=== PATIENT | male | born 1945 | race Caucasian/White ===

== ENCOUNTER 2016-09-18 03:48 | Inpatient (IN) ==
[2016-09-18] MEDS ORDERED: Ondansetron 4 MG/2 ML VIAL IVP ONE (06:53)
[2016-09-18] MEDS ORDERED: Ondansetron 4 MG/2 ML VIAL IVP PRN (08:57)
[2016-09-18] MEDS ORDERED: Naloxone 0.4 MG/ML INJ IVP PRN (08:57)
[2016-09-18] MEDS: 0.9 % Sodium Chloride 1,000 ML IVC SCH ×3 (09:49→21:35)
[2016-09-18] MEDS: Pantoprazole 40 MG VIAL IVP SCH (09:50)
[2016-09-18 10:27] LABS: Basophils % 0.3 %; Eosinophils % 0.1 %; Hematocrit 43.7 % (37.5-50.1); Hemoglobin 15.1 g/dL (12.9-16.9); Immature Granulocytes % 0.9 % (0-4); Immature Platelets 7.9 % (1.1-6.1); Lymphocytes # 0.9 K/mcL (0.6-4.6); Lymphocytes % 6.3 %; Mean Corpuscular HGB Conc 34.6 g/dL (31.6-35.5); Mean Corpuscular Hemoglobin 30.9 pg (28.0-33.3); Mean Corpuscular Volume 89.5 fL (83.0-100.0); Mean Platelet Volume 11.2 fL (9.4-12.4); Monocytes # 1.1 K/mcL (0.0-1.3); Monocytes % 7.4 %; Neutrophils # 12.3 K/mcL (1.6-8.9); Platelet Count 233 K/mcL (140-400); Red Blood Count 4.88 M/mcL (4.19-5.50); Red Cell Distribution Width 13.2 % (11.5-14.5)
[2016-09-18 10:37] LABS: Potassium 4.6 mEq/L (3.5-4.5)
[2016-09-18] MEDS ORDERED: Chloraseptic Spray 177 ML BOTTLE MM PRN (12:37)
--- NOTE | 2016-09-18 12:37 | General Surgery Consult Note ---
<Janine Sun - Last Filed: 09/18/16 15:21> Date of Encounter: 09/18/16 Time of Encounter: 12:30 Assessment and Plan (1) SBO (small bowel obstruction) Current Visit: No Status: Acute Continue with conservative management: Bowel rest with NG tube to LIWS IV fluids Serial abdominal exams Supportive care and pain control No need for urgent surgical intervention at this time Consider gastrograffin SBFT in the next 24-48 hours Will continue to follow and make recommendations (2) SIENNA (acute kidney injury) Current Visit: No Status: Acute IV fluids Avoid nephrotoxic medications Management per medicine service (3) Hyperglycemia due to type 2 diabetes mellitus Current Visit: No Status: Chronic Management per medicine service Qualifiers: Diabetes mellitus correction insulin use: without correction use Qualified Code(s): E11.65 - Type 2 diabetes mellitus with hyperglycemia (4) DVT prophylaxis Current Visit: No Status: Acute Add heparin 5,000 units SQ twice daily for DVT prophylaxis History of Present Illness Consult date: 09/18/16 Reason for consult: other (SBO) Requesting physician: Benton Moses History of present illness: Mr. Pan is a 71 year old male who is s/p an exploratory laparotomy and appendectomy in April of [address] Mccormick. Patient presented to the ED with abdominal pain with associated nausea/vomiting. He states that he had diarrhea 5 days prior to coming into the hospital. Denies any fevers/chills. He has had a CT scan which shows evidence of dilated stomach and high grade small bowel obstruction. He has been admitted to the hospital for further work-up and we have been asked to see and evaluate the patient for surgical recommendations. Last BM was this morning and was loose, he reports that he is passing flatus. Past Med Surg Social Fam HX - Past Medical History Source: old records reviewed Medical history: arthritis, COPD, coronary artery disease, dementia, diabetes, GERD, hyperlipidemia, hypertension, renal disease, other (Parkinson's disease, BPH) Psychiatric history: anxiety, depression, schizophrenia - Past Surgical History Surgical History: appendectomy, cholecystectomy, other (exploratory laparotomy with appendectomy 04/2016) - Social History Smoking Status: Unknown if ever smoked Smokeless Tobacco Status: No Alcohol use: none Drug use: none Medications and Allergies Allopurinol [Zyloprim] 200 mg PO QAM 04/19/16 [History] Clopidogrel [Plavix] 75 mg PO QAM 04/19/16 [History] Docusate [Colace] 100 mg PO BID 04/19/16 [History] Ergocalciferol (VITAMIN D2) [Vitamin D2 (50,000 UNIT)] 50,000 unit PO SA [History] Fluticasone Propionate Nasal [Flonase] 100 mcg NS DAILY 04/19/16 [History] Hydrocodone/Acetaminophen [[place] 5-325 Tablet] 1 tab PO BID 04/19/16 [History] Iron Polysaccharide Complex [Ferrex 150] 150 mg PO BID 04/19/16 [History] Lactulose 10 gm PO BID 04/19/16 [History] Levothyroxine [Synthroid] 25 mcg PO QAM 04/19/16 [History] Liraglutide [Victoza 2-Antoine] 1.8 mg SQ QAM 04/19/16 [History] Lisinopril [Zestril] 10 mg PO DAILY 04/19/16 [History] Metoprolol [Lopressor] 25 mg PO BID 04/19/16 [History] [place]-3/Dha/Epa/Fish Oil [Fish Oil 1,000 mg Softgel] 1 cap PO BID 04/19/16 [ History] Tamsulosin [Flomax] 0.4 mg PO HS 04/19/16 [History] Atorvastatin [Lipitor] 40 mg PO HS 04/20/16 [History] ClonazePAM [Klonopin] 0.5 mg PO QAM 04/20/16 [History] Finasteride [Proscar] 5 mg PO QAM 04/20/16 [History] Insulin ASPART [Novolog Flexpen] 3 - 12 unit SQ QID PRN 04/20/16 [History] Venlafaxine XR (24 HR) [Effexor XR] 225 mg PO QAM 04/20/16 [History] Insulin Glargine,Hum.rec.anlog [Lantus Solostar] 50 unit SQ HS 07/17/16 [History ] Insulin Glargine,Hum.rec.anlog [Lantus Solostar] 50 unit SQ QAM 07/17/16 [ History] Acetaminophen [Tylenol] 500 mg PO BID 09/18/16 [History] Amantadine [Symmetrel] 100 mg PO BID 09/18/16 [History] Benztropine [Cogentin] 1 mg PO QAM 09/18/16 [History] Carbidopa/Levodopa [Carbidopa-Levodopa 25-250 Tab] 1 tab PO TID 09/18/16 [ History] Cetirizine HCl [All Day Allergy] 10 mg PO DAILY 09/18/16 [History] Furosemide [Lasix] 40 mg PO DAILY 09/18/16 [History] Mirtazapine 7.5 mg PO HS 09/18/16 [History] Potassium Chloride [Klor-Con Sprinkle] 10 meq PO DAILY 09/18/16 [History] Temazepam [Restoril] 15 mg PO HS 09/18/16 [History] Ziprasidone HCl [Geodon] 20 mg PO Q4H PRN 09/18/16 [History] Ziprasidone HCl [Geodon] 60 mg PO BID 09/18/16 [History] Allergies Sulfa (Sulfonamide Antibiotics) Allergy (Unknown, Verified 09/18/16 11:28) See Comments UNKNOWN REACTION- LISTED ON PATIENT'S MAR FROM [facility] Review of Systems All systems PM: reviewed and no additional remarkable complaints except as stated (in the HPI- patient is a poor historian) All systems PM: A 10-system review of systems was performed and is negative for pertinent findings except as documented above in the HPI. General Surgery Exam Initial Vital Signs Temp Pulse Resp BP Pulse Ox 97.5 F L 94 16 159/99 97 09/18/16 06:44 09/18/16 06:44 09/18/16 06:44 09/18/16 06:44 09/18/16 06:44 - General physical appearance well developed, well nourished, no distress, moderate pain, other (out of bed to chair) - Eyes normal ocular movement - ENT normal mucosa, atraumatic, normocephalic - Neck trachea midline - Respiratory normal respiratory effort, clear to auscultation - Cardiovascular Cardiovascular exam: Present: RRR - Abdomen Abdomen general surgery: Present: bowel sounds present (hypoactive), soft, distended, tender (moderately), wound (NG tube to LIWS with bilious drainage noted) Abdominal Tenderness: Present: diffusely - Incision Incision: Present: clean and dry, intact - Integumentary Integumentary general surgery: Present: warm and dry - Neurologic Present: CN 2-12 grossly intact - Musculoskeletal Present: normal gait, normal posture - Psychiatric Psychiatric general surgery: Present: appropriate, oriented to person, oriented to place, oriented to time, speech is normal, memory intact Exam Initial Vital Signs Temp Pulse Resp BP Pulse Ox 97.5 F L 94 16 159/99 97 09/18/16 06:44 09/18/16 06:44 09/18/16 06:44 09/18/16 06:44 09/18/16 06:44 Results - Labs 09/18/16 10:20 09/18/16 10:20 Abnormal lab results WBC 14.5 K/mcL (4.3-11.1) H 09/18/16 10:20 Neutrophils # 12.3 K/mcL (1.6-8.9) H 09/18/16 10:20 Immature Plt Fraction 7.9 % (1.1-6.1) H 09/18/16 10:20 Sodium 135 mEq/L (136-145) L 09/18/16 10:20 Potassium 4.6 mEq/L (3.5-4.5) H 09/18/16 10:20 BUN 37 mg/dL (8-26) H 09/18/16 10:20 Creatinine 2.24 mg/dL (0.72-1.25) H 09/18/16 10:20 Est GFR ( Amer) 35 (> 60) L 09/18/16 10:20 Est GFR (Non-Af Amer) 29 (> 60) L 09/18/16 10:20 Glucose 255 mg/dL (70-99) H 09/18/16 10:20 POC Glucose 277 (58-89) H 09/18/16 10:45 Diabetes panel 09/18/16 Range/Units 10:20 Sodium 135 L (136-145) mEq/L Potassium 4.6 H (3.5-4.5) mEq/L Chloride 99 (98-109) mEq/L Carbon Dioxide 23 (19-29) mEq/L BUN 37 H (8-26) mg/dL Creatinine 2.24 H (0.72-1.25) mg/dL Glucose 255 H (70-99) mg/dL Calcium 10.0 (8.6-10.8) mg/dL Calcium panel 09/18/16 Range/Units 10:20 Calcium 10.0 (8.6-10.8) mg/dL Pituitary panel 09/18/16 Range/Units 10:20 Sodium 135 L (136-145) mEq/L Potassium 4.6 H (3.5-4.5) mEq/L Chloride 99 (98-109) mEq/L Carbon Dioxide 23 (19-29) mEq/L BUN 37 H (8-26) mg/dL Creatinine 2.24 H (0.72-1.25) mg/dL Glucose 255 H (70-99) mg/dL Calcium 10.0 (8.6-10.8) mg/dL Adrenal panel 09/18/16 Range/Units 10:20 Sodium 135 L (136-145) mEq/L Potassium 4.6 H (3.5-4.5) mEq/L Chloride 99 (98-109) mEq/L Carbon Dioxide 23 (19-29) mEq/L BUN 37 H (8-26) mg/dL Creatinine 2.24 H (0.72-1.25) mg/dL Glucose 255 H (70-99) mg/dL Calcium 10.0 (8.6-10.8) mg/dL All other labs normal. - Imaging CT scan - abdomen: report reviewed CT scan - pelvis: report reviewed Additional studies: KUB X-Ray 09/18/16 10:08 IMPRESSION: Nasogastric tube side port projects over the distal esophagus. Recommend advancing approximately 8 cm. The findings were sent to the Radiology Results Communication Center at on 09/18/2016to be communicated to a licensed caregiver. D/ / 09/18/2016 10:35:11 Ra Greenberg MD / Meron Navarrete Interpreting Provider: Ra Greenberg MD Consult Discharge Plan - Plan Referrals: NO,PCP [Primary Care Provider] - - Attending Attestation I examined this patient and my medical decision-making was reviewed with the [facility]/PA/Advanced Practice Nurse/Resident Physician. I agree with the documented findings, disposition and treatment plan as described except to the extent set forth below. <Osito Mccormick - Last Filed: 09/18/16 16:17> Date of Encounter: 09/18/16 Review of Systems All systems PM: A 10-system review of systems was performed and is negative for pertinent findings except as documented above in the HPI. General Surgery Exam Initial Vital Signs Temp Pulse Resp BP Pulse Ox 97.5 F L 94 16 159/99 97 09/18/16 06:44 09/18/16 06:44 09/18/16 06:44 09/18/16 06:44 09/18/16 06:44 Exam Initial Vital Signs Temp Pulse Resp BP Pulse Ox 97.5 F L 94 16 159/99 97 09/18/16 06:44 09/18/16 06:44 09/18/16 06:44 09/18/16 06:44 09/18/16 06:44 Results - Labs 09/18/16 10:20 09/18/16 10:20 Abnormal lab results WBC 14.5 K/mcL (4.3-11.1) H 09/18/16 10:20 Neutrophils # 12.3 K/mcL (1.6-8.9) H 09/18/16 10:20 Immature Plt Fraction 7.9 % (1.1-6.1) H 09/18/16 10:20 Sodium 135 mEq/L (136-145) L 09/18/16 10:20 Potassium 4.6 mEq/L (3.5-4.5) H 09/18/16 10:20 BUN 37 mg/dL (8-26) H 09/18/16 10:20 Creatinine 2.24 mg/dL (0.72-1.25) H 09/18/16 10:20 Est GFR ( Amer) 35 (> 60) L 09/18/16 10:20 Est GFR (Non-Af Amer) 29 (> 60) L 09/18/16 10:20 Glucose 255 mg/dL (70-99) H 09/18/16 10:20 POC Glucose 277 (58-89) H 09/18/16 10:45 Diabetes panel 09/18/16 Range/Units 10:20 Sodium 135 L (136-145) mEq/L Potassium 4.6 H (3.5-4.5) mEq/L Chloride 99 (98-109) mEq/L Carbon Dioxide 23 (19-29) mEq/L BUN 37 H (8-26) mg/dL Creatinine 2.24 H (0.72-1.25) mg/dL Glucose 255 H (70-99) mg/dL Calcium 10.0 (8.6-10.8) mg/dL Calcium panel 09/18/16 Range/Units 10:20 Calcium 10.0 (8.6-10.8) mg/dL Pituitary panel 09/18/16 Range/Units 10:20 Sodium 135 L (136-145) mEq/L Potassium 4.6 H (3.5-4.5) mEq/L Chloride 99 (98-109) mEq/L Carbon Dioxide 23 (19-29) mEq/L BUN 37 H (8-26) mg/dL Creatinine 2.24 H (0.72-1.25) mg/dL Glucose 255 H (70-99) mg/dL Calcium 10.0 (8.6-10.8) mg/dL Adrenal panel 09/18/16 Range/Units 10:20 Sodium 135 L (136-145) mEq/L Potassium 4.6 H (3.5-4.5) mEq/L Chloride 99 (98-109) mEq/L Carbon Dioxide 23 (19-29) mEq/L BUN 37 H (8-26) mg/dL Creatinine 2.24 H (0.72-1.25) mg/dL Glucose 255 H (70-99) mg/dL Calcium 10.0 (8.6-10.8) mg/dL All other labs normal. - Attending Attestation I reviewed the history of physical examination was present for the exam. I agree with the above-mentioned plan.
[2016-09-18] MEDS ORDERED: *HR* Dextrose 50 % in Water (Syg) 50 ML SYRINGE IVP PRN (12:43)
[2016-09-18] MEDS ORDERED: Dextrose Gel 15 GM PO PRN ×2 (12:43)
[2016-09-18] MEDS ORDERED: D5% in Water 1,000 ML IV PRN (12:43)
[2016-09-18] MEDS: Insulin LISPRO 300 UNITS/3 ML VIAL SQ SCH ×2 (17:50→23:46)
[2016-09-18] MEDS: *HR* Heparin 5,000 UNIT/ML VIAL SQ SCH (19:05)
[2016-09-18] MEDS: *HR* Morphine 2 MG/ML SYRINGE IVP PRN (20:17)
--- NOTE | 2016-09-18 23:16 | Internal Med History&Physical ---
Date of Encounter: 09/18/16 Time of Encounter: 07:45 Internal Medicine - H&P: HPI Chief complaint: Abdominal pain, distension x couple of days Admitted From: Intrahospital Transfer Plans for Post Hospital Care: Transfer [facility] Facility History of present illness: Mr. Pna is a 71 year old male resident of [place] (with dementia, schizophrenia), with multiple somatic and psychomorbidities, he is a very poor historian, he was transferred from [facility] where he was evaluated initialled for abdominal pain and distension with CT evidence of SBO bowel obstruction with transition point in the RLQ with suspicion for adhesions. He is s/p exploratory laparotomy and appendectomy in April of [address] Mccormick. As he is a poor historian, much of the history was obtained from sign out recived by accepting RN. He had reported abdominal pain, nausea and vomiting. for a couple of days. The [place] personnel thought it wa due to constipation, trying laxatives without success. There is also a report that he may have had intermittent diarrhea, the last of which was this morning. He is unable to answer (comprehend) the question (are you passing flatus?). ROS is limited by the presence of NG tube and patient cognitive status. I understand 1.4L OF billious drainage was obtained at [facility], another 700 mls in [facility], the [facility] currently hold 800 mls of billious drainage. I am unable to obatin a code status. His is listed as his NOK/POA. I was unable to constact her by phone this morning. ROS: Limited by presence of N-G and patient cognitive status FHx: Patient is able to tell me he has a family history of cancer, he mentions breast cancer as one of these.. Vital Signs Temperature 99.3 F 09/18/16 01:47 Pulse Rate 102 09/18/16 01:47 Respiratory Rate 16 09/18/16 01:47 Blood Pressure 147/81 09/18/16 01:47 O2 Sat by Pulse Oximetry 100 09/18/16 01:47 Temperature 98.2 F 09/18/16 04:44 Pulse Rate 102 09/18/16 01:47 Respiratory Rate 16 09/18/16 04:44 Blood Pressure 146/81 09/18/16 04:44 O2 Sat by Pulse Oximetry 100 09/18/16 01:47 Not in distress, not ill, non-toxic looking, Not pale, anicteric, afebrile, acyanotic. Moist mucosa. HEENT: No JVD, no cervical lymphadenopathy, NG tube in left nostril draining large amounts of thin billious fluid, attached to low intermittent suction Chest : CTAB, relative reduction in the bases. Heart: RRR, HS1/2, no m/r/g. Abdomen: distended, scar fron prior laparatomy, soft, tender in the mid abdomen and RLQ, bowel sounds is hypoactive, no masses, [employer]RO[employer]OR: AAO X 3, no gross focal neurological signs. Skin: No active skin lesion Extremities: No pedal edema, normal pedal pulses, no calf tenderness Lab Results 09/18/16 09/18/16 09/18/16 Range/Units 02:05 02:05 02:20 WBC 15.2 H (4.3-11.1) K/mcL RBC 5.05 (4.19-5.50) M/mcL Hgb 15.6 (12.9-16.9) g/dL Hct 45.4 (37.5-50.1) % MCV 89.9 (83.0-100.0) fL MCH 30.9 (28.0-33.3) pg MCHC 34.4 (31.6-35.5) g/dL RDW 13.2 (11.5-14.5) % Plt Count 233 (140-400) K/mcL MPV 11.7 (9.4-12.4) fL Immature Gran % 0.8 (0-4) % Seg Neutrophils % 87.1 % Lymphocytes % 5.4 % Monocytes % 6.0 % Eosinophils % 0.3 % Basophils % 0.4 % Neutrophils # 13.2 H (1.6-8.9) K/mcL Lymphocytes # 0.8 (0.6-4.6) K/mcL Monocytes # 0.9 (0.0-1.3) K/mcL Eosinophils # 0.1 (0.0-0.6) K/mcL Basophils # 0.1 (0.0-0.2) K/mcL PT 12.2 H (9.4-12.1) Seconds INR 1.1 APTT 33.4 (26.0-36.0) Seconds Sodium 132 L (136-145) mEq/L Potassium 5.4 H (3.5-4.5) mEq/L Chloride 95 L (98-109) mEq/L Carbon Dioxide 22 (19-29) mEq/L BUN 36 H (8-26) mg/dL Creatinine 2.56 H (0.72-1.25) mg/dL Est GFR ( Amer) 30 L (> 60) Est GFR (Non-Af Amer) 25 L (> 60) BUN/Creatinine Ratio 14 (6-26) Glucose 345 H (70-99) mg/dL Calculated Osmolality 296 (280-300) Calcium 9.8 (8.6-10.8) mg/dL Total Bilirubin 0.7 (0.2-1.2) mg/dL AST 10 (5-34) Units/L ALT 19 (0-55) Units/L Alkaline Phosphatase 137 H (38-126) Units/L Serum Total Protein 7.5 (6.0-8.3) g/dL Albumin 3.8 (3.5-5.0) g/dL Globulin 3.7 H (2.4-3.5) g/dL Albumin/Globulin Ratio 1.0 L (1.1-2.2) Amylase 27 (25-125) Units/L Lipase 44 (8-78) Units/L CT abdomen: High grade small bowel obstruction with transition point in the RLQ. KUB X-Ray 09/18/16 10:08 Nasogastric tube side port projects over the distal esophagus. EKG: NSR, RBBB. imp SBO, related to adhesions. ARF on CKD Hyperkalemia due to ARF Leucocytosis, reactive, likely related to vomiting Chronic morbidities COPD CAD Dementia DM2 GERD HLD CKDIII Arthritis Anxiety Depression Schizophrenia. PLAN Admit Conservative care IVF NS @ 175, decrease rate after 24 hours and correction of fluid deficits. Optimal pain control, antiemetic NG to low-intermittent suction Consult general surgery for comanagement. Trend WBC, and renal function Add potassium to fluids once potassium normalizes Hold po medication, given by parenteral edward when available and indicated. DVT prophylaxis with heparin SC. IV Protonix 40mg QD. I reassured the patient as he was anxious he was going to need surgery, he appears to comprehend at least in part my assessment. He is high risk due to high grade SBO, there remains risk of perforation, sepsis, gangrene and hemodynamic collapse Psychiatric history: Reports: anxiety, depression, schizophrenia Past Med Surg Social Fam HX - Past Medical History Medical history: arthritis, COPD, coronary artery disease, dementia, diabetes, GERD, hyperlipidemia, hypertension, renal disease, other (Parkinson's disease, BPH) Psychiatric history: anxiety, depression, schizophrenia - Past Surgical History Surgical History: appendectomy, cholecystectomy, other (exploratory laparotomy with appendectomy 04/2016) - Social History Smoking Status: Unknown if ever smoked Smokeless Tobacco Status: No Alcohol use: none Drug use: none Internal Medicine - H&P: Meds Allopurinol [Zyloprim] 200 mg PO QAM 04/19/16 [History] Clopidogrel [Plavix] 75 mg PO QAM 04/19/16 [History] Docusate [Colace] 100 mg PO BID 04/19/16 [History] Ergocalciferol (VITAMIN D2) [Vitamin D2 (50,000 UNIT)] 50,000 unit PO SA [History] Fluticasone Propionate Nasal [Flonase] 100 mcg NS DAILY 04/19/16 [History] Hydrocodone/Acetaminophen [[place] 5-325 Tablet] 1 tab PO BID 04/19/16 [History] Iron Polysaccharide Complex [Ferrex 150] 150 mg PO BID 04/19/16 [History] Lactulose 10 gm PO BID 04/19/16 [History] Levothyroxine [Synthroid] 25 mcg PO QAM 04/19/16 [History] Liraglutide [Victoza 2-Antoine] 1.8 mg SQ QAM 04/19/16 [History] Lisinopril [Zestril] 10 mg PO DAILY 04/19/16 [History] Metoprolol [Lopressor] 25 mg PO BID 04/19/16 [History] [place]-3/Dha/Epa/Fish Oil [Fish Oil 1,000 mg Softgel] 1 cap PO BID 04/19/16 [ History] Tamsulosin [Flomax] 0.4 mg PO HS 04/19/16 [History] Atorvastatin [Lipitor] 40 mg PO HS 04/20/16 [History] ClonazePAM [Klonopin] 0.5 mg PO QAM 04/20/16 [History] Finasteride [Proscar] 5 mg PO QAM 04/20/16 [History] Insulin ASPART [Novolog Flexpen] 3 - 12 unit SQ QID PRN 04/20/16 [History] Venlafaxine XR (24 HR) [Effexor XR] 225 mg PO QAM 04/20/16 [History] Insulin Glargine,Hum.rec.anlog [Lantus Solostar] 50 unit SQ HS 07/17/16 [History ] Insulin Glargine,Hum.rec.anlog [Lantus Solostar] 50 unit SQ QAM 07/17/16 [ History] Acetaminophen [Tylenol] 500 mg PO BID 09/18/16 [History] Amantadine [Symmetrel] 100 mg PO BID 09/18/16 [History] Benztropine [Cogentin] 1 mg PO QAM 09/18/16 [History] Carbidopa/Levodopa [Carbidopa-Levodopa 25-250 Tab] 1 tab PO TID 09/18/16 [ History] Cetirizine HCl [All Day Allergy] 10 mg PO DAILY 09/18/16 [History] Furosemide [Lasix] 40 mg PO DAILY 09/18/16 [History] Mirtazapine 7.5 mg PO HS 09/18/16 [History] Potassium Chloride [Klor-Con Sprinkle] 10 meq PO DAILY 09/18/16 [History] Temazepam [Restoril] 15 mg PO HS 09/18/16 [History] Ziprasidone HCl [Geodon] 20 mg PO Q4H PRN 09/18/16 [History] Ziprasidone HCl [Geodon] 60 mg PO BID 09/18/16 [History] Allergies Sulfa (Sulfonamide Antibiotics) Allergy (Unknown, Verified 09/18/16 11:28) See Comments UNKNOWN REACTION- LISTED ON PATIENT'S MAR FROM [facility] All Systems PM: A 10-system review of systems was performed and is negative for pertinent findings except as documented above in the HPI. - Constitutional Vitals: Temp Pulse Resp BP Pulse Ox 98.1 F 92 18 162/81 98 09/18/16 19:31 09/18/16 19:31 09/18/16 19:31 09/18/16 19:31 09/18/16 19:31 Internal Med - H&P Results - Labs CBC & Chem 7: 09/18/16 10:20 09/18/16 10:20 Labs: Short CBC 09/18/16 Range/Units 10:20 WBC 14.5 H (4.3-11.1) K/mcL Hgb 15.1 (12.9-16.9) g/dL Hct 43.7 (37.5-50.1) % Plt Count 233 (140-400) K/mcL Neutrophils # 12.3 H (1.6-8.9) K/mcL BMP 09/18/16 10:20 Sodium 135 L Potassium 4.6 H Chloride 99 Carbon Dioxide 23 BUN 37 H Creatinine 2.24 H Glucose 255 H Calcium 10.0 - Impressions ITS Impressions KUB X-Ray 09/18/16 10:08 IMPRESSION: Nasogastric tube side port projects over the distal esophagus. Recommend advancing approximately 8 cm. The findings were sent to the Radiology Results Communication Center at 10:28 a.m. on 09/18/2016to be communicated to a licensed caregiver. D/ / 09/18/2016 10:35:11 Ra Greenberg MD / Meron Navarrete Interpreting Provider: Ra Greenberg MD
[2016-09-18] MEDS: Insulin DETEMIR 100 UNIT/ML X5UNITS SQ SCH (23:45)
[2016-09-19] MEDS: 0.9 % Sodium Chloride 1,000 ML IVC SCH ×4 (03:14→22:00)
[2016-09-19] MEDS: Insulin LISPRO 300 UNITS/3 ML VIAL SQ SCH ×4 (05:11→23:27)
[2016-09-19 05:45] LABS: Basophils # 0.1 K/mcL (0.0-0.2); Basophils % 0.6 %; Eosinophils # 0.3 K/mcL (0.0-0.6); Eosinophils % 3.1 %; Hematocrit 40.7 % (37.5-50.1); Immature Granulocytes % 0.9 % (0-4); Lymphocytes # 1.6 K/mcL (0.6-4.6); Lymphocytes % 15.2 %; Mean Corpuscular HGB Conc 33.2 g/dL (31.6-35.5); Mean Corpuscular Hemoglobin 30.7 pg (28.0-33.3); Mean Corpuscular Volume 92.5 fL (83.0-100.0); Mean Platelet Volume 11.6 fL (9.4-12.4); Monocytes % 9.7 %; Neutrophils # 7.4 K/mcL (1.6-8.9); Platelet Count 175 K/mcL (140-400); Red Cell Distribution Width 13.2 % (11.5-14.5); Segmented Neutrophils % 70.5 %
[2016-09-19 05:54] LABS: Hemoglobin 13.5 g/dL (12.9-16.9)
[2016-09-19 06:04] LABS: Calcium 8.4 mg/dL (8.6-10.8); Potassium 3.8 mEq/L (3.5-4.5)
[2016-09-19] MEDS: *HR* Heparin 5,000 UNIT/ML VIAL SQ SCH ×2 (06:24→18:25)
[2016-09-19] MEDS ORDERED: *HR* LORazepam 2 MG/ML VIAL IVP ONE (09:09)
[2016-09-19] MEDS ORDERED: *HR* LORazepam 0.5 MG TABLET PO PRN (09:09)
[2016-09-19] MEDS: Pantoprazole 40 MG VIAL IVP SCH (09:52)
[2016-09-19] MEDS: Ziprasidone injection 20 MG/ML VIAL IM SCH (12:35)
--- NOTE | 2016-09-19 12:56 | General Surgery Progress Note ---
Date of Encounter: 09/19/16 Time of Encounter: 09:15 - Assessment and Plan (1) SBO (small bowel obstruction) Current Visit: No Status: Acute Continue with conservative management: NG tube to LIWS, with 200ml clears liquids per shift. IV fluids Serial abdominal exams Supportive care and pain control No need for urgent surgical intervention at this time Consider gastrograffin SBFT in the next 24-48 hours Will continue to follow and make recommendations (2) SIENNA (acute kidney injury) Current Visit: No Status: Acute Improved, Cr 2.24>1.53 IV fluids Avoid nephrotoxic medications Management per medicine service (3) Hypertension associated with diabetes Current Visit: No Status: Acute Management per medicine service. (4) DVT prophylaxis Current Visit: No Status: Acute Heparin 5,000 units SQ Q12H for DVT prophylaxis. Subjective Patient reports: no new complaints, feels better, pain is less, no flatus, no bowel movement, afebrile Narrative: He denies any flatus or BM. Denies abdominal pain. Only states his eyes burn and he is thirsty (will start limited clears). Objective Vital Signs - Last 8 Hours Temp Pulse Resp BP Pulse Ox 09/19/16 11:40 97.3 F L 89 16 123/73 95 09/19/16 09:04 97.6 F 89 16 123/77 94 L Intake and Output 09/18/16 09/19/16 09/19/16 23:59 07:59 15:59 Intake Total 1000 / 1000 1000 / 1000 1675 / 1675 Output Total 600 / 600 450 / 450 475 / 475 Balance 400 / 400 550 / 550 1200 / 1200 Intake: IV Fluids 1000 / 1000 1000 / 1000 1675 / 1675 0.9 % Sodium Chloride 1, 1000 / 1000 1000 / 1000 1675 / 1675 000 ML @ 175 mls/hr IVC . [id number] [facility] Rx#:[id number] Oral 0 / 0 0 / 0 Output: Urine 0 / 0 0 / 0 Stool 500 / 500 Urine/Stool Mix 475 / 475 Gastric Drainage 100 / 100 450 / 450 Other: Meal NPO Stool Color Green Weight 86.68 kg Blood Glucose* 131 138 154 Patient Weight 09/19/16 23:59 Weight 86.68 kg - General physical appearance well developed, well nourished, no distress, chronically ill - Eyes other (will follow with eyes when talking to examiner, eyes not fully open.) - ENT normal mucosa, atraumatic, normocephalic - Neck Neck exam: trachea midline - Respiratory normal respiratory effort, clear to auscultation - Cardiovascular Cardiovascular exam: Present: tachycardia - Abdomen Abdomen: Present: bowel sounds present, soft, non tender - Neurologic disoriented (once stated he was tender around his "nose" when referring to abdomen.) - Psychiatric oriented to person - Labs 09/19/16 05:22 09/19/16 05:22 Diabetes panel 09/19/16 Range/Units 05:22 Sodium 138 (136-145) mEq/L Potassium 3.8 (3.5-4.5) mEq/L Chloride 106 (98-109) mEq/L Carbon Dioxide 23 (19-29) mEq/L BUN 29 H (8-26) mg/dL Creatinine 1.53 H (0.72-1.25) mg/dL Glucose 152 H (70-99) mg/dL Calcium 8.4 L D (8.6-10.8) mg/dL Calcium panel 09/19/16 Range/Units 05:22 Calcium 8.4 L D (8.6-10.8) mg/dL Pituitary panel 09/19/16 Range/Units 05:22 Sodium 138 (136-145) mEq/L Potassium 3.8 (3.5-4.5) mEq/L Chloride 106 (98-109) mEq/L Carbon Dioxide 23 (19-29) mEq/L BUN 29 H (8-26) mg/dL Creatinine 1.53 H (0.72-1.25) mg/dL Glucose 152 H (70-99) mg/dL Calcium 8.4 L D (8.6-10.8) mg/dL Adrenal panel 09/19/16 Range/Units 05:22 Sodium 138 (136-145) mEq/L Potassium 3.8 (3.5-4.5) mEq/L Chloride 106 (98-109) mEq/L Carbon Dioxide 23 (19-29) mEq/L BUN 29 H (8-26) mg/dL Creatinine 1.53 H (0.72-1.25) mg/dL Glucose 152 H (70-99) mg/dL Calcium 8.4 L D (8.6-10.8) mg/dL Consult Discharge Plan - Plan Referrals: NO,PCP [Primary Care Provider] -
[2016-09-19] MEDS: *HR* HYDROmorphone (PF) 1 MG/ML SYRINGE IVP PRN (16:15)
--- NOTE | 2016-09-19 16:43 | Internal Med Progress Note ---
Date of Encounter: 09/19/16 Time of Encounter: 09:50 - Assessment and plan (1) Small bowel obstruction due to adhesions Current Visit: Yes Status: Acute Assessment and plan: Surgery following CT abdomen: High grade small bowel obstruction with transition point in the RLQ. No intervention for now Continue Conservative care NPO IVF NS @ 175, decrease rate after 24 hours and correction of fluid deficits. Optimal pain control, antiemetic NG to low-intermittent suction Monitor clinical signs, patient remains hemodyamically stable However, He is high risk due to high grade SBO, there remains risk of perforation, sepsis, gangrene and hemodynamic collapse Trend WBC, and renal function (2) Leukocytosis Current Visit: Yes Status: Resolved Assessment and plan: Possibly reactive from nausea and vomiting Qualifiers: Leukocytosis type: unspecified Qualified Code(s): D72.829 - Elevated white blood cell count, unspecified (3) Schizophrenia Current Visit: Yes Status: Chronic Assessment and plan: Resume IM form of home meds Monitor closely Qualifiers: Schizophrenia type: unspecified Qualified Code(s): F20.9 - Schizophrenia, unspecified (4) Diabetes mellitus Current Visit: Yes Status: Chronic Assessment and plan: Patient is NPO for now FS q6H for now, continue same Sliding scale insulin for now Qualifiers: Diabetes mellitus type: type 2 Diabetes mellitus complication status: with hyperglycemia Diabetes mellitus fpc insulin use: unspecified fpc insulin use status Qualified Code(s): E11.65 - Type 2 diabetes mellitus with hyperglycemia (5) COPD (chronic obstructive pulmonary disease) Current Visit: Yes Status: Chronic Assessment and plan: Not in exacerbation Qualifiers: COPD type: unspecified COPD Qualified Code(s): J44.9 - Chronic obstructive pulmonary disease, unspecified (6) HLD (hyperlipidemia) Current Visit: Yes Status: Chronic Assessment and plan: Resume home meds when taking po Qualifiers: Hyperlipidemia type: unspecified Qualified Code(s): E78.5 - Hyperlipidemia , unspecified (7) Dementia Current Visit: Yes Status: Chronic Assessment and plan: Resume ativan IV for now Monitor closely Qualifiers: Dementia type: unspecified type Dementia behavioral disturbance: with behavioral disturbance Qualified Code(s): F03.91 - Unspecified dementia with behavioral disturbance (8) SIENNA (acute kidney injury) Current Visit: Yes Status: Resolved Assessment and plan: Renal function improved Continue IVF hydration (9) Hyperkalemia Current Visit: Yes Status: Resolved Assessment and plan: Resolved K WNL - Subjective Interval history: Mr. Pan is a 71 year old male resident of [place] (with dementia, schizophrenia) He is admitted for management of SBO, SIENNA on CKD He was agitated just prior to review this a.m Chart review reveals patient is on benzodiazepines and multiple antipsychotics, parenteral forms of theses have been restarted At time of review, he is very drowsy (s/p medication) He is able to pen his eyes to name call Other PMH is significant for COPD, CAD, DM, GERD HLD - Constitutional Vitals: Temp Pulse Resp BP Pulse Ox 97.6 F 82 16 152/87 98 09/19/16 16:23 09/19/16 16:23 09/19/16 16:23 09/19/16 16:23 09/19/16 16:23 General appearance: Present: A&O X 1 - Head Head exam: Present: atraumatic, normocephalic - Eye Eye exam: Present: PERRL, conjuntiva pink, sclera anicteric Pupils: Present: PERRL - ENT Additional comments: NG tube draining brownish material - Neck Neck exam general surgery: Present: supple, trachea midline. Absent: lymphadenopathy - Respiratory Respiratory exam: Present: CTAB. Absent: accessory muscle use, rales, rhonchi, wheezes - Cardiovascular Cardiovascular exam: Present: RRR, +S1, +S2. Absent: diastolic murmur, gallop, rubs, systolic murmur - GI/Abdominal GI/Abdominal exam: Present: distended, hypoactive bowel sounds, soft, no peritoneal signs. Absent: guarding, tenderness - Extremities Exam Extremities exam: Present: warm, radial pulses palpable and symetrical. Absent : calf tenderness, cyanotic, pedal edema - Neurological Exam Neurological exam: Present: CN II-XII intact, no focal deficits. Absent: pronater drift, facial droop, speech deficit - Skin Skin exam: Present: dry Internal Medicine: Result - Labs CBC & Chem 7: 09/19/16 05:22 09/19/16 05:22 Labs: Short CBC 09/19/16 Range/Units 05:22 WBC 10.4 (4.3-11.1) K/mcL Hgb 13.5 D (12.9-16.9) g/dL Hct 40.7 (37.5-50.1) % Plt Count 175 (140-400) K/mcL Neutrophils # 7.4 (1.6-8.9) K/mcL BMP 09/19/16 05:22 Sodium 138 Potassium 3.8 Chloride 106 Carbon Dioxide 23 BUN 29 H Creatinine 1.53 H Glucose 152 H Calcium 8.4 L D - Impressions Impressions KUB X-Ray 09/18/16 10:08 IMPRESSION: Nasogastric tube side port projects over the distal esophagus. Recommend advancing approximately 8 cm. The findings were sent to the [facility] at 10:28 a.m. on 09/18/2016to be communicated to a licensed caregiver. D/ / 09/18/2016 10:35:11 Ra Greenberg MD / Meron Navarrete Interpreting Provider: Ra Greenberg MD Consult Discharge Plan - Plan Referrals: NO,PCP [Primary Care Provider] -
[2016-09-19] MEDS ORDERED: Furosemide 20 MG/2 ML VIAL IVP ONE (20:06)
[2016-09-19] MEDS: Insulin DETEMIR 100 UNIT/ML X5UNITS SQ SCH (23:26)
[2016-09-20] MEDS: 0.9 % Sodium Chloride 1,000 ML IVC SCH ×2 (03:49→09:15)
[2016-09-20] MEDS: Insulin LISPRO 300 UNITS/3 ML VIAL SQ SCH ×3 (06:16→18:21)
[2016-09-20] MEDS: *HR* Heparin 5,000 UNIT/ML VIAL SQ SCH ×2 (06:19→18:21)
[2016-09-20 07:16] LABS: BUN/Creatinine Ratio 17 (6-26); Calcium 8.5 mg/dL (8.6-10.8); Carbon Dioxide 23 mEq/L (19-29); Chloride 111 mEq/L (98-109); Glucose 100 mg/dL (70-99); Osmolality,Calculated 300 (280-300); Potassium 3.7 mEq/L (3.5-4.5); Sodium 144 mEq/L (136-145); eGFR For African Americans > 60 (> 60); eGFR For Non-African Americans > 60 (> 60)
[2016-09-20 07:19] LABS: Blood Urea Nitrogen 17 mg/dL (8-26)
[2016-09-20 07:32] LABS: Basophils % 0.5 %; Eosinophils # 0.3 K/mcL (0.0-0.6); Eosinophils % 3.4 %; Hematocrit 36.4 % (37.5-50.1); Hemoglobin 12.3 g/dL (12.9-16.9); Immature Granulocytes % 1.3 % (0-4); Lymphocytes # 1.1 K/mcL (0.6-4.6); Lymphocytes % 14.7 %; Mean Corpuscular HGB Conc 33.8 g/dL (31.6-35.5); Mean Corpuscular Hemoglobin 31.7 pg (28.0-33.3); Mean Corpuscular Volume 93.8 fL (83.0-100.0); Mean Platelet Volume 11.4 fL (9.4-12.4); Monocytes # 0.5 K/mcL (0.0-1.3); Monocytes % 7.1 %; Neutrophils # 5.5 K/mcL (1.6-8.9); Platelet Count 149 K/mcL (140-400); Red Blood Count 3.88 M/mcL (4.19-5.50); Red Cell Distribution Width 13.2 % (11.5-14.5)
[2016-09-20] MEDS ORDERED: Water for inj. (sterile) 10 ML IV ONE (09:08)
[2016-09-20] MEDS: Ziprasidone injection 20 MG/ML VIAL IM SCH (09:13)
[2016-09-20] MEDS: Pantoprazole 40 MG VIAL IVP SCH (09:13)
[2016-09-20] MEDS: *HR* HYDROmorphone (PF) 1 MG/ML SYRINGE IVP PRN (09:35)
--- NOTE | 2016-09-20 10:35 | Internal Med Progress Note ---
Date of Encounter: 09/20/16 Time of Encounter: 10:20 - Assessment and plan (1) Small bowel obstruction due to adhesions Current Visit: Yes Status: Acute Assessment and plan: Surgery following CT abdomen: High grade small bowel obstruction with transition point in the RLQ. Patient has started having BM, and bowel sounds have improved Will hold IVF for now Will start clear liquid diets Monitor clinical signs, patient remains hemodynamically stable CBC and Renal function has improved He is high risk due to high grade SBO, there remains risk of perforation, sepsis , gangrene and hemodynamic collapse (2) Leukocytosis Current Visit: Yes Status: Resolved Assessment and plan: Resolved. Possibly reactive from nausea and vomiting Qualifiers: Leukocytosis type: unspecified Qualified Code(s): D72.829 - Elevated white blood cell count, unspecified (3) Schizophrenia Current Visit: Yes Status: Chronic Assessment and plan: Resume home meds Qualifiers: Schizophrenia type: unspecified Qualified Code(s): F20.9 - Schizophrenia, unspecified (4) Diabetes mellitus Current Visit: Yes Status: Chronic Assessment and plan: FS q6H for now, continue same Sliding scale insulin for now Qualifiers: Diabetes mellitus type: type 2 Diabetes mellitus complication status: with hyperglycemia Diabetes mellitus group home 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: 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 Qualified Code(s): E11.65 - Type 2 diabetes mellitus with hyperglycemia (5) COPD (chronic obstructive pulmonary disease) Current Visit: Yes Status: Chronic Assessment and plan: Not in exacerbation Qualifiers: COPD type: unspecified COPD Qualified Code(s): J44.9 - Chronic obstructive pulmonary disease, unspecified (6) HLD (hyperlipidemia) Current Visit: Yes Status: Chronic Assessment and plan: Resume home meds when taking po Qualifiers: Hyperlipidemia type: unspecified Qualified Code(s): E78.5 - Hyperlipidemia , unspecified (7) Dementia Current Visit: Yes Status: Chronic Assessment and plan: Resume ativan IV for now Monitor closely Qualifiers: Dementia type: unspecified type Dementia behavioral disturbance: with behavioral disturbance Qualified Code(s): F03.91 - Unspecified dementia with behavioral disturbance (8) SIENNA (acute kidney injury) Current Visit: Yes Status: Resolved Assessment and plan: Renal function improved d/C IVF (9) Hyperkalemia Current Visit: Yes Status: Resolved Assessment and plan: Resolved K WNL - Subjective Interval history: Mr. Pan is a 71 year old male resident of [place] (with dementia, schizophrenia) He is admitted for management of SBO, SIENNA on CKD Other PMH is significant for COPD, CAD, DM, GERD HLD He is seen at bedside this morning He has no new complains he is awake, alert and oriented X2 He had 2 watery BM yesterday, he has had 3 watery BM - Constitutional Vitals: Temp Pulse Resp BP Pulse Ox 97.5 F L 58 18 138/72 97 09/20/16 08:15 09/20/16 08:15 09/20/16 08:15 09/20/16 08:15 09/20/16 08:15 General appearance: Present: A&O X 2, pleasant, no acute distress, obese, answers questions appropriately - Head Head exam: Present: atraumatic, normocephalic - Eye Eye exam: Present: PERRL, conjuntiva pink, sclera anicteric Pupils: Present: PERRL - ENT Additional comments: NG tube draining clear urine - Neck Neck exam general surgery: Present: supple, trachea midline. Absent: lymphadenopathy - Respiratory Respiratory exam: Present: CTAB. Absent: accessory muscle use, rales, rhonchi, wheezes - Cardiovascular Cardiovascular exam: Present: RRR, +S1, +S2. Absent: diastolic murmur, gallop, rubs, systolic murmur - GI/Abdominal GI/Abdominal exam: Present: normal bowel sounds, soft, no peritoneal signs. Absent: distended, hernia, tenderness - Extremities Exam Extremities exam: Present: warm, radial pulses palpable and symetrical. Absent : calf tenderness, cyanotic, pedal edema - Neurological Exam Neurological exam: Present: CN II-XII intact, oriented X3, no focal deficits. Absent: pronater drift, facial droop, speech deficit - Skin Skin exam: Present: dry Internal Medicine: Result - Labs CBC & Chem 7: 09/20/16 06:44 09/20/16 06:44 Labs: Short CBC 09/20/16 Range/Units 06:44 WBC 7.6 (4.3-11.1) K/mcL Hgb 12.3 L (12.9-16.9) g/dL Hct 36.4 L (37.5-50.1) % Plt Count 149 (140-400) K/mcL Neutrophils # 5.5 (1.6-8.9) K/mcL BMP 09/20/16 06:44 Sodium 144 Potassium 3.7 Chloride 111 H Carbon Dioxide 23 BUN 17 D Creatinine 0.99 Glucose 100 H Calcium 8.5 L Consult Discharge Plan - Plan Referrals: NO,PCP [Primary Care Provider] -
[2016-09-20] MEDS: *HR* Morphine 2 MG/ML SYRINGE IVP PRN (12:38)
[2016-09-20] MEDS ORDERED: Ziprasidone 20 MG CAPSULE PO PRN (15:32)
--- NOTE | 2016-09-20 16:31 | General Surgery Progress Note ---
Date of Encounter: 09/20/16 Time of Encounter: 12:30 - Assessment and Plan (1) SBO (small bowel obstruction) Current Visit: No Status: Acute Continue with conservative management: NG tube to LIWS (850ml total in past 24 hrs) Tolerating limited clears liquids. (Medicine service advanced to clear liquid diet at lunch.) IV fluids Serial abdominal exams Supportive care and pain control No need for urgent surgical intervention at this time Consider gastrograffin SBFT in the next 24-48 hours Will continue to follow and make recommendations (2) SIENNA (acute kidney injury) Current Visit: Yes Status: Resolved Improved, Cr 2.24>1.53>0.99 IV fluids Avoid nephrotoxic medications Management per medicine service (3) Hypertension associated with diabetes Current Visit: No Status: Acute Management per medicine service. (4) DVT prophylaxis Current Visit: No Status: Acute Heparin 5,000 units SQ Q12H for DVT prophylaxis. Subjective Patient reports: no new complaints, still having pain (burning in lower abdomen) , no flatus, no bowel movement, afebrile, other (asking nurses for water frequently) Objective Vital Signs - Last 8 Hours Temp Pulse Resp BP Pulse Ox 09/20/16 14:50 98.3 F 68 18 136/64 96 09/20/16 10:45 98 F 65 16 146/69 96 Intake and Output 09/20/16 09/20/16 09/20/16 07:59 15:59 23:59 Intake Total 1000 / 1000 1000 / 1000 1000 / 1000 Output Total 550 / 550 925 / 925 Balance 450 / 450 75 / 75 1000 / 1000 Intake: IV Fluids 1000 / 1000 1000 / 1000 1000 / 1000 0.9 % Sodium Chloride 1, 1000 / 1000 1000 / 1000 1000 / 1000 000 ML @ 175 mls/hr IVC . Q5H43M [facility] Rx#:[id number] Oral 0 / 0 Output: Catheter 250 / 250 775 / 775 Gastric Drainage 300 / 300 150 / 150 Other: Weight 87.2 kg Blood Glucose* 92 Patient Weight 09/20/16 23:59 Weight 87.2 kg - General physical appearance well developed, no distress, chronically ill - Eyes other (will follow with eyes when talking to examiner, eyes not fully open.) - ENT normal mucosa, atraumatic, normocephalic - Neck Neck exam: trachea midline - Respiratory normal respiratory effort, clear to auscultation - Cardiovascular Cardiovascular exam: Present: RRR - Abdomen Abdomen: Present: bowel sounds present (hypoactive), soft, tender (diffuse, worse in RLQ.) - Musculoskeletal normal posture - Psychiatric oriented to person - Labs 09/20/16 06:44 09/20/16 06:44 Diabetes panel 09/20/16 Range/Units 06:44 Sodium 144 (136-145) mEq/L Potassium 3.7 (3.5-4.5) mEq/L Chloride 111 H (98-109) mEq/L Carbon Dioxide 23 (19-29) mEq/L BUN 17 D (8-26) mg/dL Creatinine 0.99 (0.72-1.25) mg/dL Glucose 100 H (70-99) mg/dL Calcium 8.5 L (8.6-10.8) mg/dL Calcium panel 09/20/16 Range/Units 06:44 Calcium 8.5 L (8.6-10.8) mg/dL Pituitary panel 09/20/16 Range/Units 06:44 Sodium 144 (136-145) mEq/L Potassium 3.7 (3.5-4.5) mEq/L Chloride 111 H (98-109) mEq/L Carbon Dioxide 23 (19-29) mEq/L BUN 17 D (8-26) mg/dL Creatinine 0.99 (0.72-1.25) mg/dL Glucose 100 H (70-99) mg/dL Calcium 8.5 L (8.6-10.8) mg/dL Adrenal panel 09/20/16 Range/Units 06:44 Sodium 144 (136-145) mEq/L Potassium 3.7 (3.5-4.5) mEq/L Chloride 111 H (98-109) mEq/L Carbon Dioxide 23 (19-29) mEq/L BUN 17 D (8-26) mg/dL Creatinine 0.99 (0.72-1.25) mg/dL Glucose 100 H (70-99) mg/dL Calcium 8.5 L (8.6-10.8) mg/dL Consult Discharge Plan - Plan Referrals: NO,PCP [Primary Care Provider] -
[2016-09-20] MEDS: Temazepam 15 MG CAPSULE PO SCH (20:41)
[2016-09-20] MEDS: Iron Polysaccharide Complex 150 MG CAPSULE PO SCH (20:42)
[2016-09-20] MEDS: Ziprasidone 20 MG CAPSULE PO SCH (20:42)
[2016-09-20] MEDS: Carbidopa/Levodopa 25/250 TABLET PO SCH (20:42)
[2016-09-20] MEDS: Mirtazapine 15 MG TABLET PO SCH (20:43)
[2016-09-20] MEDS: Insulin DETEMIR 100 UNIT/ML X5UNITS SQ SCH (20:43)
[2016-09-21] MEDS: Insulin LISPRO 300 UNITS/3 ML VIAL SQ SCH ×5 (00:55→23:24)
[2016-09-21] MEDS: *HR* Morphine 2 MG/ML SYRINGE IVP PRN (03:17)
[2016-09-21 05:09] LABS: Basophils # 0.1 K/mcL (0.0-0.2); Eosinophils # 0.4 K/mcL (0.0-0.6); Eosinophils % 4.6 %; Hematocrit 35.9 % (37.5-50.1); Hemoglobin 12.1 g/dL (12.9-16.9); Immature Granulocytes % 0.9 % (0-4); Lymphocytes # 1.5 K/mcL (0.6-4.6); Lymphocytes % 18.4 %; Mean Corpuscular HGB Conc 33.7 g/dL (31.6-35.5); Mean Corpuscular Hemoglobin 31.2 pg (28.0-33.3); Mean Corpuscular Volume 92.5 fL (83.0-100.0); Mean Platelet Volume 10.8 fL (9.4-12.4); Monocytes # 0.7 K/mcL (0.0-1.3); Monocytes % 8.8 %; Neutrophils # 5.4 K/mcL (1.6-8.9); Platelet Count 162 K/mcL (140-400); Red Blood Count 3.88 M/mcL (4.19-5.50); Segmented Neutrophils % 66.3 %
[2016-09-21 05:28] LABS: BUN/Creatinine Ratio 13 (6-26); Blood Urea Nitrogen 12 mg/dL (8-26); Calcium 8.6 mg/dL (8.6-10.8); Carbon Dioxide 23 mEq/L (19-29); Chloride 106 mEq/L (98-109); Glucose 117 mg/dL (70-99); Osmolality,Calculated 285 (280-300); Potassium 3.4 mEq/L (3.5-4.5); Sodium 137 mEq/L (136-145); eGFR For African Americans > 60 (> 60); eGFR For Non-African Americans > 60 (> 60)
[2016-09-21] MEDS: *HR* Heparin 5,000 UNIT/ML VIAL SQ SCH ×2 (06:14→18:24)
[2016-09-21] MEDS: Levothyroxine 25 MCG TABLET PO SCH (09:12)
[2016-09-21] MEDS: Ziprasidone 20 MG CAPSULE PO SCH ×2 (09:13→20:14)
[2016-09-21] MEDS: Venlafaxine XR (24 HR) 75 MG CAP.ER.24H PO SCH (09:13)
[2016-09-21] MEDS: Furosemide 40 MG TABLET PO SCH (09:13)
[2016-09-21] MEDS: Loratadine 10 MG TABLET PO SCH (09:14)
[2016-09-21] MEDS: clonazePAM 0.5 MG TABLET PO SCH (09:14)
[2016-09-21] MEDS: Iron Polysaccharide Complex 150 MG CAPSULE PO SCH ×2 (09:14→20:14)
[2016-09-21] MEDS: Finasteride 5 MG TABLET PO SCH (09:14)
[2016-09-21] MEDS: Pantoprazole 40 MG VIAL IVP SCH (09:15)
[2016-09-21] MEDS: Carbidopa/Levodopa 25/250 TABLET PO SCH ×3 (09:20→20:15)
--- NOTE | 2016-09-21 10:57 | General Surgery Progress Note ---
<Eliezer Tejeda - Last Filed: 09/21/16 15:26> Date of Encounter: 09/21/16 Time of Encounter: 09:15 - Assessment and Plan (1) Small bowel obstruction Current Visit: No Status: Acute Continue with conservative management: Patient is no longer on NG tube. Tolerating limited clears liquids. (Medicine service advanced to clear liquid diet at lunch yesterday.) IV fluids Serial abdominal exams Supportive care and pain control No need for urgent surgical intervention at this time Gastrograffin SBFT ordered, will await results. Will continue to follow and make recommendations (2) SIENNA (acute kidney injury) Current Visit: Yes Status: Resolved Resolved. Creatinine now .89 Avoid neprotoxic medications. Management per medicine service (3) Hypertension associated with diabetes Current Visit: No Status: Acute Management per medicine service. (4) DVT prophylaxis Current Visit: No Status: Acute Heparin 5,000 units SQ Q12H for DVT prophylaxis. Subjective Narrative: Patient admits to having gas, denies nausea and bowel movements. He states that he feels bloated and has some burning pain in his epigastric region. Objective Vital Signs - Last 8 Hours Temp Pulse Resp BP Pulse Ox 09/21/16 07:13 100.0 F H 68 14 132/74 97 Intake and Output 09/20/16 09/21/16 09/21/16 23:59 07:59 15:59 Intake Total 1650 / 1650 0 / 0 Output Total 350 / 350 650 / 650 Balance 1300 / 1300 -650 / -650 Intake: IV Fluids 1000 / 1000 0.9 % Sodium Chloride 1, 1000 / 1000 000 ML @ 175 mls/hr IVC . Q5H43M [facility] Rx#:[id number] Oral 650 / 650 0 / 0 Output: Catheter 350 / 350 650 / 650 Other: Meal Dinner Weight 87.1 kg Blood Glucose* 137 116 Patient Weight 09/21/16 23:59 Weight 87.1 kg - General physical appearance no distress - Eyes normal ocular movement - Neck Neck exam: trachea midline - Respiratory normal respiratory effort, clear to auscultation - Cardiovascular Cardiovascular exam: Present: RRR - Abdomen Abdomen: Present: bowel sounds present, soft, tender (mild and diffuse) - Musculoskeletal normal posture - Psychiatric oriented to person - Labs 09/21/16 04:57 09/21/16 04:57 Diabetes panel 09/21/16 Range/Units 04:57 Sodium 137 (136-145) mEq/L Potassium 3.4 L (3.5-4.5) mEq/L Chloride 106 (98-109) mEq/L Carbon Dioxide 23 (19-29) mEq/L BUN 12 (8-26) mg/dL Creatinine 0.89 (0.72-1.25) mg/dL Glucose 117 H (70-99) mg/dL Calcium 8.6 (8.6-10.8) mg/dL Calcium panel 09/21/16 Range/Units 04:57 Calcium 8.6 (8.6-10.8) mg/dL Pituitary panel 09/21/16 Range/Units 04:57 Sodium 137 (136-145) mEq/L Potassium 3.4 L (3.5-4.5) mEq/L Chloride 106 (98-109) mEq/L Carbon Dioxide 23 (19-29) mEq/L BUN 12 (8-26) mg/dL Creatinine 0.89 (0.72-1.25) mg/dL Glucose 117 H (70-99) mg/dL Calcium 8.6 (8.6-10.8) mg/dL Adrenal panel 09/21/16 Range/Units 04:57 Sodium 137 (136-145) mEq/L Potassium 3.4 L (3.5-4.5) mEq/L Chloride 106 (98-109) mEq/L Carbon Dioxide 23 (19-29) mEq/L BUN 12 (8-26) mg/dL Creatinine 0.89 (0.72-1.25) mg/dL Glucose 117 H (70-99) mg/dL Calcium 8.6 (8.6-10.8) mg/dL Consult Discharge Plan - Plan Referrals: NO,PCP [Primary Care Provider] - - Attending Attestation I examined this patient and my medical decision-making was reviewed with the SHIFT SUPERVISOR/PA/Advanced Practice Nurse/Resident Physician. I agree with the documented findings, disposition and treatment plan as described except to the extent set forth below. <Osito Mccormick - Last Filed: 09/21/16 17:27> Date of Encounter: 09/21/16 Objective Vital Signs - Last 8 Hours Temp Pulse Resp BP Pulse Ox 09/21/16 15:02 98.3 F 77 16 123/75 97 09/21/16 11:01 98.2 F 78 16 137/75 100 Intake and Output 09/21/16 09/21/16 09/21/16 07:59 15:59 23:59 Intake Total 0 / 0 960 / 960 Output Total 650 / 650 700 / 700 Balance -650 / -650 260 / 260 Intake: Oral 0 / 0 960 / 960 Output: Catheter 650 / 650 700 / 700 Other: Meal Lunch Stool Size Small Stool Characteristics Mucoid Stool Color Green Weight 87.1 kg Blood Glucose* 116 195 229 Patient Weight 09/21/16 23:59 Weight 87.1 kg - Labs 09/21/16 04:57 09/21/16 04:57 Diabetes panel 09/21/16 Range/Units 04:57 Sodium 137 (136-145) mEq/L Potassium 3.4 L (3.5-4.5) mEq/L Chloride 106 (98-109) mEq/L Carbon Dioxide 23 (19-29) mEq/L BUN 12 (8-26) mg/dL Creatinine 0.89 (0.72-1.25) mg/dL Glucose 117 H (70-99) mg/dL Calcium 8.6 (8.6-10.8) mg/dL Calcium panel 09/21/16 Range/Units 04:57 Calcium 8.6 (8.6-10.8) mg/dL Pituitary panel 09/21/16 Range/Units 04:57 Sodium 137 (136-145) mEq/L Potassium 3.4 L (3.5-4.5) mEq/L Chloride 106 (98-109) mEq/L Carbon Dioxide 23 (19-29) mEq/L BUN 12 (8-26) mg/dL Creatinine 0.89 (0.72-1.25) mg/dL Glucose 117 H (70-99) mg/dL Calcium 8.6 (8.6-10.8) mg/dL Adrenal panel 09/21/16 Range/Units 04:57 Sodium 137 (136-145) mEq/L Potassium 3.4 L (3.5-4.5) mEq/L Chloride 106 (98-109) mEq/L Carbon Dioxide 23 (19-29) mEq/L BUN 12 (8-26) mg/dL Creatinine 0.89 (0.72-1.25) mg/dL Glucose 117 H (70-99) mg/dL Calcium 8.6 (8.6-10.8) mg/dL - Attending Attestation I reviewed the physical examination and assessment and agree with the above plan. We will plan for a small bowel follow-through tomorrow.
--- NOTE | 2016-09-21 11:05 | Internal Med Progress Note ---
Date of Encounter: 09/21/16 Time of Encounter: 10:55 - Assessment and plan (1) Small bowel obstruction due to adhesions Current Visit: Yes Status: Acute Assessment and plan: Surgery following CT abdomen: High grade small bowel obstruction with transition point in the RLQ. Patient having BM, and bowel sounds are normal Continue clear liquid diets Monitor clinical signs, patient remains hemodynamically stable CBC and Renal function has improved He is high risk due to high grade SBO, there remains risk of perforation, sepsis , gangrene and hemodynamic collapse (2) Leukocytosis Current Visit: Yes Status: Resolved Assessment and plan: Resolved. 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 [facility] insulin use status Qualified Code(s): E11.65 - Type 2 diabetes mellitus with hyperglycemia (5) COPD (chronic obstructive pulmonary disease) Current Visit: Yes Status: Chronic Assessment and plan: Not in exacerbation Qualifiers: COPD type: unspecified COPD Qualified Code(s): J44.9 - Chronic obstructive pulmonary disease, unspecified (6) HLD (hyperlipidemia) Current Visit: Yes Status: Chronic Assessment and plan: Resume home meds when taking po Qualifiers: Hyperlipidemia type: unspecified Qualified Code(s): E78.5 - Hyperlipidemia , unspecified (7) Dementia Current Visit: Yes Status: Chronic Assessment and plan: No linger agitated since 09/19 Home dose of po ativa prn has been resumed and other home meds for dementia and psych has been resumed Qualifiers: Dementia type: unspecified type Dementia behavioral disturbance: with behavioral disturbance Qualified Code(s): F03.91 - Unspecified dementia with behavioral disturbance (8) SIENNA (acute kidney injury) Current Visit: Yes Status: Resolved Assessment and plan: Renal function improved d/C IVF (9) Hyperkalemia Current Visit: Yes Status: Resolved Assessment and plan: Resolved K WNL - Subjective Interval history: Mr. Pan is a 71 year old male resident of [place] (with dementia, schizophrenia) He is admitted for management of SBO, SIENNA on CKD Other PMH is significant for COPD, CAD, DM, GERD HLD He is seen at bedside this morning, sitting out of bed to chair He has had 3 watery BM since admission He was started on clear liquid diet yesterday, NG tube was removed Patient reports "cramping " today, he states associated with BM, no BM documented per chart at time of review Will continue to monitor Will continue clear liquid diets for now - Constitutional Vitals: Temp Pulse Resp BP Pulse Ox 98.2 F 78 16 137/75 100 09/21/16 11:01 09/21/16 11:01 09/21/16 11:01 09/21/16 11:01 09/21/16 11:01 General appearance: Present: A&O X 3, pleasant, no acute distress, obese, answers questions appropriately - Head Head exam: Present: atraumatic, normocephalic - Eye Eye exam: Present: PERRL, conjuntiva pink, sclera anicteric Pupils: Present: PERRL - Neck Neck exam general surgery: Present: supple, trachea midline. Absent: lymphadenopathy - Respiratory Respiratory exam: Present: CTAB. Absent: accessory muscle use, rales, rhonchi, wheezes - Cardiovascular Cardiovascular exam: Present: RRR, +S1, +S2. Absent: tachycardia - GI/Abdominal GI/Abdominal exam: Present: distended, normal bowel sounds, soft, no peritoneal signs. Absent: mass, tenderness - Extremities Exam Extremities exam: Present: pedal edema (trace edema bilaterally) - Neurological Exam Neurological exam: Present: CN II-XII intact, oriented X3, no focal deficits. Absent: pronater drift, facial droop, speech deficit - Skin Skin exam: Present: dry, intact Internal Medicine: Result - Labs CBC & Chem 7: 09/21/16 04:57 09/21/16 04:57 Labs: Short CBC 09/21/16 Range/Units 04:57 WBC 8.1 (4.3-11.1) K/mcL Hgb 12.1 L (12.9-16.9) g/dL Hct 35.9 L (37.5-50.1) % Plt Count 162 (140-400) K/mcL Neutrophils # 5.4 (1.6-8.9) K/mcL BMP 09/21/16 04:57 Sodium 137 Potassium 3.4 L Chloride 106 Carbon Dioxide 23 BUN 12 Creatinine 0.89 Glucose 117 H Calcium 8.6 Consult Discharge Plan - Plan Referrals: NO,PCP [Primary Care Provider] -
[2016-09-21] MEDS: Temazepam 15 MG CAPSULE PO SCH (20:14)
[2016-09-21] MEDS: Mirtazapine 15 MG TABLET PO SCH (20:15)
[2016-09-21] MEDS: Insulin DETEMIR 100 UNIT/ML X5UNITS SQ SCH (23:24)
[2016-09-22] MEDS: *HR* Heparin 5,000 UNIT/ML VIAL SQ SCH ×2 (06:15→18:26)
[2016-09-22] MEDS: Insulin LISPRO 300 UNITS/3 ML VIAL SQ SCH ×3 (06:16→18:26)
--- NOTE | 2016-09-22 09:14 | General Surgery Progress Note ---
<Eliezer Tejeda - Last Filed: 09/22/16 09:31> Date of Encounter: 09/22/16 Time of Encounter: 08:45 - Assessment and Plan (1) Small bowel obstruction Current Visit: No Status: Acute Continue with conservative management: Patient is no longer on NG tube. Tolerating limited clears liquids. (Medicine service advanced to clear liquid diet at lunch yesterday.) IV fluids Serial abdominal exams Supportive care and pain control No need for urgent surgical intervention at this time Gastrograffin SBFT ordered, will await results. Patient did have bowel movements x2 yesterday and reports continuing to have flatus. Will continue to follow and make recommendations (2) SIENNA (acute kidney injury) Current Visit: Yes Status: Resolved Resolved. Creatinine yesterday .89 Avoid neprotoxic medications. Management per medicine service (3) Hypertension associated with diabetes Current Visit: No Status: Acute Continue management per medicine service. (4) DVT prophylaxis Current Visit: No Status: Acute Heparin 5,000 units SQ Q12H for DVT prophylaxis. Subjective Patient reports: no new complaints, feels better, pain is less, flatus, bowel movement Narrative: No nausea or vomiting. Patient seems concerned and preoccupied with cancer this morning stating that "he wants it out." Further discussion did not lead to any reasoning behind the concern for cancer this morning. Objective Vital Signs - Last 8 Hours Temp Pulse Resp BP Pulse Ox 09/22/16 07:59 99.4 F 90 15 117/70 96 09/22/16 03:13 98.1 F 84 18 115/71 97 Intake and Output 09/21/16 09/22/16 09/22/16 23:59 07:59 15:59 Intake Total 940 / 940 0 / 0 Output Total 1949 350 / 350 Balance -1010 / -1010 -1999 / -2000 -350 / -350 Intake: Oral 940 / 940 0 / 0 Output: Catheter 1949 350 / 350 Other: Meal Dinner Stool Size Moderate Stool Consistency liquid Stool Characteristics Mucoid Stool Color Brown Green # Bowel Movements 1 1 Weight 85 kg Blood Glucose* 229 166 Patient Weight 09/22/16 23:59 Weight 85 kg - General physical appearance well developed, well nourished, no distress - Eyes normal ocular movement - ENT normal mucosa - Neck Neck exam: trachea midline - Respiratory normal respiratory effort, clear to auscultation - Cardiovascular Cardiovascular exam: Present: RRR - Abdomen Abdomen: Present: bowel sounds present, soft, non tender, distended - Integumentary no rash - Musculoskeletal normal posture - Psychiatric oriented to person - Labs 09/21/16 04:57 09/21/16 04:57 Consult Discharge Plan - Plan Referrals: NO,PCP [Primary Care Provider] - - Attending Attestation I examined this patient and my medical decision-making was reviewed with the SEARCH SPECIALIST/PA/Advanced Practice Nurse/Resident Physician. I agree with the documented findings, disposition and treatment plan as described except to the extent set forth below. <Osito Mccormick M - Last Filed: 09/22/16 15:18> Date of Encounter: 09/22/16 Objective Vital Signs - Last 8 Hours Temp Pulse Resp BP Pulse Ox 09/22/16 11:45 99.7 F H 91 16 152/83 97 09/22/16 07:59 99.4 F 90 15 117/70 96 Intake and Output 09/21/16 09/22/16 09/22/16 23:59 07:59 15:59 Intake Total 940 / 940 0 / 0 Output Total 1949 350 / 350 Balance -1010 / -1010 -1999 / 2000 -350 / -350 Intake: Oral 940 / 940 0 / 0 Output: Catheter 1949 350 / 350 Other: Meal Dinner NPO Stool Size Moderate Small Stool Consistency liquid soft formed Stool Characteristics Mucoid Stool Color Brown Green Hernandez # Bowel Movements 1 1 Weight 85 kg Blood Glucose* 229 166 191 Patient Weight 09/22/16 23:59 Weight 85 kg - Labs 09/22/16 11:15 09/22/16 11:15 Diabetes panel 09/22/16 Range/Units 11:15 Sodium 138 (136-145) mEq/L Potassium 3.5 (3.5-4.5) mEq/L Chloride 101 (98-109) mEq/L Carbon Dioxide 28 (19-29) mEq/L BUN 10 (8-26) mg/dL Creatinine 1.04 (0.72-1.25) mg/dL Glucose 186 H (70-99) mg/dL Calcium 9.5 (8.6-10.8) mg/dL Calcium panel 09/22/16 Range/Units 11:15 Calcium 9.5 (8.6-10.8) mg/dL Pituitary panel 09/22/16 Range/Units 11:15 Sodium 138 (136-145) mEq/L Potassium 3.5 (3.5-4.5) mEq/L Chloride 101 (98-109) mEq/L Carbon Dioxide 28 (19-29) mEq/L BUN 10 (8-26) mg/dL Creatinine 1.04 (0.72-1.25) mg/dL Glucose 186 H (70-99) mg/dL Calcium 9.5 (8.6-10.8) mg/dL Adrenal panel 09/22/16 Range/Units 11:15 Sodium 138 (136-145) mEq/L Potassium 3.5 (3.5-4.5) mEq/L Chloride 101 (98-109) mEq/L Carbon Dioxide 28 (19-29) mEq/L BUN 10 (8-26) mg/dL Creatinine 1.04 (0.72-1.25) mg/dL Glucose 186 H (70-99) mg/dL Calcium 9.5 (8.6-10.8) mg/dL - Attending Attestation The assessment and physical exam. Patient is currently undergoing a small bowel follow-through however after me 2 hours of the bowel prep he started having hernandez appearing bowel movements consistent with passing of the Gastrografin contrast. Although not noted in the report as of yet) and they have proceeded to taking pictures 4 hours after the initiation of the study) I do think that there is no signs of obstruction since he is currently having or has had a bowel movement. Consider giving him MiraLAX/Gatorade to help with continued emptying out of the stool that is present in the colon via the small bowel follow-through study. Await official reading of small bowel follow- through.
[2016-09-22] MEDS: Pantoprazole 40 MG VIAL IVP SCH (10:35)
[2016-09-22 11:23] LABS: Basophils # 0.1 K/mcL (0.0-0.2); Basophils % 0.6 %; Eosinophils # 0.2 K/mcL (0.0-0.6); Eosinophils % 2.3 %; Hematocrit 38.7 % (37.5-50.1); Hemoglobin 13.5 g/dL (12.9-16.9); Immature Granulocytes % 0.6 % (0-4); Lymphocytes # 1.1 K/mcL (0.6-4.6); Lymphocytes % 12.1 %; Mean Corpuscular HGB Conc 34.9 g/dL (31.6-35.5); Mean Corpuscular Volume 88.8 fL (83.0-100.0); Mean Platelet Volume 10.9 fL (9.4-12.4); Monocytes # 0.8 K/mcL (0.0-1.3); Monocytes % 8.7 %; Neutrophils # 6.7 K/mcL (1.6-8.9); Platelet Count 177 K/mcL (140-400); Red Blood Count 4.36 M/mcL (4.19-5.50); Red Cell Distribution Width 12.8 % (11.5-14.5); Segmented Neutrophils % 75.7 %
[2016-09-22 11:35] LABS: BUN/Creatinine Ratio 10 (6-26); Blood Urea Nitrogen 10 mg/dL (8-26); Calcium 9.5 mg/dL (8.6-10.8); Carbon Dioxide 28 mEq/L (19-29); Chloride 101 mEq/L (98-109); Glucose 186 mg/dL (70-99); Magnesium 1.5 mg/dL (1.6-2.6); Osmolality,Calculated 290 (280-300); Potassium 3.5 mEq/L (3.5-4.5); Sodium 138 mEq/L (136-145); eGFR For African Americans > 60 (> 60); eGFR For Non-African Americans > 60 (> 60)
[2016-09-22] MEDS: Venlafaxine XR (24 HR) 75 MG CAP.ER.24H PO SCH (12:14)
[2016-09-22] MEDS: Ziprasidone 20 MG CAPSULE PO SCH ×2 (12:14→21:21)
[2016-09-22] MEDS: clonazePAM 0.5 MG TABLET PO SCH (12:14)
--- NOTE | 2016-09-22 14:31 | Internal Med Progress Note ---
Date of Encounter: 09/22/16 Time of Encounter: 14:30 - Assessment and plan (1) Small bowel obstruction due to adhesions Current Visit: Yes Status: Acute Assessment and plan: Surgery following CT abdomen: High grade small bowel obstruction with transition point in the RLQ. Patient having BM, and bowel sounds are normal Continue clear liquid diet, we advanced diet if small bowel series show improvement NG tube was removed He is high risk due to high grade SBO, there remains risk of perforation, sepsis , gangrene and hemodynamic collapse (2) Dementia Current Visit: Yes Status: Chronic Assessment and plan: agitated with history of schizophrenia Continue Geodon scheduled dose and PRN doses Qualifiers: Dementia type: unspecified type Dementia behavioral disturbance: with behavioral disturbance Qualified Code(s): F03.91 - Unspecified dementia with behavioral disturbance (3) Diabetes mellitus Current Visit: Yes Status: Chronic Assessment and plan: continue Sliding scale insulin for now Qualifiers: Diabetes mellitus type: type 2 Diabetes mellitus complication status: with hyperglycemia 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 insulin 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: unspecified intermodal owner operator truck driver insulin use status Qualified Code(s): E11.65 - Type 2 diabetes mellitus with hyperglycemia (4) Schizophrenia Current Visit: Yes Status: Chronic Assessment and plan: Continue home meds Qualifiers: Schizophrenia type: unspecified Qualified Code(s): F20.9 - Schizophrenia, unspecified (5) SIENNA (acute kidney injury) Current Visit: Yes Status: Resolved Assessment and plan: Renal function resolved d/C IVF (6) Encephalopathy acute Current Visit: No Status: Acute - Time Spent With Patient Greater than 35 minutes - Subjective Interval history: Patient is agitated, complaining of mild pain in his left food, there is bloody urine on his Arrieta catheter his nurse says that she has been pulling it. Denies any chest pain or shortness of breath but he is oriented 1 only at the moment. Unable to complete review of systems - Constitutional Vitals: Temp Pulse Resp BP Pulse Ox 99.7 F H 91 16 152/83 97 09/22/16 11:45 09/22/16 11:45 09/22/16 11:45 09/22/16 11:45 09/22/16 11:45 General appearance: Present: A&O X 1, pleasant, no acute distress, obese, answers questions appropriately - Head Head exam: Present: atraumatic, normocephalic - Eye Eye exam: Present: PERRL, conjuntiva pink, sclera anicteric Pupils: Present: PERRL - Neck Neck exam general surgery: Present: supple, trachea midline. Absent: lymphadenopathy - Respiratory Respiratory exam: Present: CTAB, rales (Bilateral basilar crackles). Absent: accessory muscle use, rhonchi, wheezes - Cardiovascular Cardiovascular exam: Present: RRR, +S1, +S2. Absent: diastolic murmur, gallop, rubs, systolic murmur - GI/Abdominal GI/Abdominal exam: Present: normal bowel sounds, soft, no peritoneal signs. Absent: distended, tenderness - Extremities Exam Extremities exam: Present: pedal edema (+1 pitting edema both lower extremities) , warm, radial pulses palpable and symetrical. Absent: calf tenderness, cyanotic - Neurological Exam Neurological exam: Present: CN II-XII intact, no focal deficits. Absent: oriented X3, pronater drift, facial droop, speech deficit - Skin Skin exam: Present: dry, intact Additional comments: Arrieta catheter in place Internal Medicine: Result - Labs CBC & Chem 7: 09/22/16 11:15 09/22/16 11:15 Labs: Short CBC 09/22/16 Range/Units 11:15 WBC 8.8 (4.3-11.1) K/mcL Hgb 13.5 (12.9-16.9) g/dL Hct 38.7 (37.5-50.1) % Plt Count 177 (140-400) K/mcL Neutrophils # 6.7 (1.6-8.9) K/mcL BMP 09/22/16 11:15 Sodium 138 Potassium 3.5 Chloride 101 Carbon Dioxide 28 BUN 10 Creatinine 1.04 Glucose 186 H Calcium 9.5 Consult Discharge Plan - Plan Referrals: NO,PCP [Primary Care Provider] -
[2016-09-22] MEDS ORDERED: Polyethylene Glycol 3350 255 GM POWDER PO ONE (15:18)
[2016-09-22] MEDS: Iron Polysaccharide Complex 150 MG CAPSULE PO SCH ×2 (16:26→21:22)
[2016-09-22] MEDS: Carbidopa/Levodopa 25/250 TABLET PO SCH ×3 (16:26→21:21)
[2016-09-22] MEDS: Finasteride 5 MG TABLET PO SCH (16:33)
[2016-09-22] MEDS: Loratadine 10 MG TABLET PO SCH (16:34)
[2016-09-22] MEDS: Furosemide 40 MG TABLET PO SCH (16:35)
[2016-09-22] MEDS: Levothyroxine 25 MCG TABLET PO SCH (16:35)
[2016-09-22] MEDS ORDERED: Ziprasidone injection 20 MG/ML VIAL IM PRN (19:10)
[2016-09-22] MEDS: Magnesium Oxide 400 MG TABLET PO SCH (21:21)
[2016-09-22] MEDS: Temazepam 15 MG CAPSULE PO SCH (21:21)
[2016-09-22] MEDS: Mirtazapine 15 MG TABLET PO SCH (21:22)
[2016-09-23] MEDS: 0.9 % Sodium Chloride 1,000 ML IVC SCH (00:27)
[2016-09-23] MEDS: Insulin DETEMIR 100 UNIT/ML X5UNITS SQ SCH ×2 (00:29→20:01)
[2016-09-23] MEDS: Insulin LISPRO 300 UNITS/3 ML VIAL SQ SCH ×4 (00:29→17:55)
[2016-09-23] MEDS: *HR* Heparin 5,000 UNIT/ML VIAL SQ SCH ×2 (06:24→17:58)
[2016-09-23 06:39] LABS: BUN/Creatinine Ratio 9 (6-26); Blood Urea Nitrogen 9 mg/dL (8-26); Calcium 8.9 mg/dL (8.6-10.8); Carbon Dioxide 25 mEq/L (19-29); Chloride 104 mEq/L (98-109); Glucose 152 mg/dL (70-99); Osmolality,Calculated 290 (280-300); Potassium 3.3 mEq/L (3.5-4.5); Sodium 139 mEq/L (136-145); eGFR For African Americans > 60 (> 60); eGFR For Non-African Americans > 60 (> 60)
[2016-09-23] MEDS ORDERED: Potassium Chloride Elixir 20 MEQ/15 ML UDC PO ONE (06:49)
[2016-09-23] MEDS: Venlafaxine XR (24 HR) 75 MG CAP.ER.24H PO SCH (08:47)
[2016-09-23] MEDS: Furosemide 40 MG TABLET PO SCH (08:47)
[2016-09-23] MEDS: Magnesium Oxide 400 MG TABLET PO SCH ×2 (08:47→20:02)
[2016-09-23] MEDS: clonazePAM 0.5 MG TABLET PO SCH (08:47)
[2016-09-23] MEDS: Iron Polysaccharide Complex 150 MG CAPSULE PO SCH ×2 (08:47→20:02)
[2016-09-23] MEDS: Levothyroxine 25 MCG TABLET PO SCH (08:48)
[2016-09-23] MEDS: Loratadine 10 MG TABLET PO SCH (08:48)
[2016-09-23] MEDS: Finasteride 5 MG TABLET PO SCH (08:48)
[2016-09-23] MEDS: Carbidopa/Levodopa 25/250 TABLET PO SCH ×3 (08:48→20:02)
[2016-09-23] MEDS: Pantoprazole 40 MG VIAL IVP SCH (08:48)
--- NOTE | 2016-09-23 09:27 | Internal Med Progress Note ---
Date of Encounter: 09/23/16 Time of Encounter: 09:24 - Assessment and plan (1) Small bowel obstruction due to adhesions Current Visit: Yes Status: Acute Assessment and plan: Surgery following CT abdomen: High grade small bowel obstruction with transition point in the RLQ. Patient having BM, and bowel sounds are normal Advance diet, small bowel series showed still possible partial small bowel obstruction NG tube was removed He is high risk due to high grade SBO, there remains risk of perforation, sepsis , gangrene and hemodynamic collapse (2) Dementia Current Visit: Yes Status: Chronic Assessment and plan: agitated with history of schizophrenia Continue Geodon scheduled dose and PRN doses Qualifiers: Dementia type: unspecified type Dementia behavioral disturbance: with behavioral disturbance Qualified Code(s): F03.91 - Unspecified dementia with behavioral disturbance (3) Diabetes mellitus Current Visit: Yes Status: Chronic Assessment and plan: continue Sliding scale insulin for now Qualifiers: Diabetes mellitus type: type 2 Diabetes mellitus complication status: with hyperglycemia 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 - Time Spent With Patient Greater than 35 minutes - Subjective Interval history: Patient is not agitated anymore , complaining of mild pain in his left hip, there is bloody urine on his Castro catheter his nurse says that he has been pulling it. Denies any chest pain or shortness of breath but he is oriented 2 at the moment. Abdomen is distended but denies pain , no vomiting, no fever, no headaches, no CP or SOB - Constitutional Vitals: Temp Pulse Resp BP Pulse Ox 98.4 F 78 16 108/70 97 09/23/16 07:35 09/23/16 07:35 09/23/16 07:35 09/23/16 07:35 09/23/16 07:35 General appearance: Present: A&O X 2, pleasant, no acute distress, obese, answers questions appropriately - Head Head exam: Present: atraumatic, normocephalic - Eye Eye exam: Present: PERRL, conjuntiva pink, sclera anicteric Pupils: Present: PERRL - Neck Neck exam general surgery: Present: supple, trachea midline. Absent: lymphadenopathy - Respiratory Respiratory exam: Present: CTAB. Absent: accessory muscle use, rales, rhonchi, wheezes - Cardiovascular Cardiovascular exam: Present: RRR, +S1, +S2. Absent: diastolic murmur, gallop, rubs, systolic murmur - GI/Abdominal GI/Abdominal exam: Present: diminished bowel sounds, distended (very distended) , soft, no peritoneal signs. Absent: normal bowel sounds, tenderness - Extremities Exam Extremities exam: Present: warm, radial pulses palpable and symetrical. Absent : calf tenderness, cyanotic, pedal edema - Neurological Exam Neurological exam: Present: CN II-XII intact, no focal deficits. Absent: oriented X3, pronater drift, facial droop, speech deficit - Skin Skin exam: Present: dry, intact Additional comments: castro catheter in place with blood in urine Internal Medicine: Result - Labs CBC & Chem 7: 09/22/16 11:15 09/23/16 05:21 Labs: Short CBC 09/22/16 Range/Units 11:15 WBC 8.8 (4.3-11.1) K/mcL Hgb 13.5 (12.9-16.9) g/dL Hct 38.7 (37.5-50.1) % Plt Count 177 (140-400) K/mcL Neutrophils # 6.7 (1.6-8.9) K/mcL BMP 09/22/16 09/23/16 11:15 05:21 Sodium 138 139 Potassium 3.5 3.3 L Chloride 101 104 Carbon Dioxide 28 25 BUN 10 9 Creatinine 1.04 0.97 Glucose 186 H 152 H Calcium 9.5 8.9 - Impressions Impressions Small Bowel X-Ray 09/22/16 00:00 IMPRESSION: Delayed transition time of the water-soluble oral contrast to the colon, with loops of dilated contrast opacified distal small bowel, particularly in right lower quadrant, consistent with at least partial small bowel obstruction proximal to the anastomosis. The results were reported to Dr. Yates at 3:33 p.m. on September 22, 2016. D/ / Marcell Huggins MD / Marcell Huggins MD Interpreting Provider: Marcell Huggins MD Consult Discharge Plan - Plan Referrals: NO,PCP [Primary Care Provider] -
--- NOTE | 2016-09-23 09:32 | General Surgery Progress Note ---
<Janine Sun Parsih - Last Filed: 09/23/16 09:30> Date of Encounter: 09/23/16 Time of Encounter: 09:30 - Assessment and Plan (1) SBO (small bowel obstruction) Current Visit: No Status: Acute Patient is progressing well with conservative treatment He has continued to have bowel function after SBFT Advance to mechanical soft diet - diabetic modifications Increase activity as tolerated (2) Hyperglycemia due to type 2 diabetes mellitus Current Visit: No Status: Chronic Stable Management per medicine service (3) DVT prophylaxis Current Visit: No Status: Acute Continue heparin 5,000 units SQ twice daily for DVT prophylaxis Subjective Patient reports: feels better, tolerating liquids well, bowel movement ( multiple today), afebrile Objective Vital Signs - Last 8 Hours Temp Pulse Resp BP Pulse Ox 09/23/16 07:35 98.4 F 78 16 108/70 97 09/23/16 03:11 98.6 F 73 16 125/73 96 Intake and Output 09/22/16 09/23/16 09/23/16 23:59 07:59 15:59 Intake Total 200 / 200 0 / 0 Output Total 200 / 200 200 / 200 Balance 0 / 0 -200 / -200 Intake: Oral 200 / 200 0 / 0 Output: Urine 200 / 200 0 / 0 Catheter 200 / 200 Other: Stool Size Small Large Stool Consistency liquid liquid Stool Characteristics Seedy Stool Color Hernandez Green Black # Bowel Movements 1 # Bowel Movement Diapers 1 Weight 85.389 kg Blood Glucose* 246 155 Patient Weight 09/23/16 23:59 Weight 85.389 kg - General physical appearance well developed, well nourished, no distress - Eyes normal ocular movement - ENT normal mucosa, atraumatic, normocephalic - Neck Neck exam: trachea midline - Respiratory normal respiratory effort - Cardiovascular Cardiovascular exam: Present: RRR - Abdomen Abdomen: Present: bowel sounds present, soft, non tender - Neurologic CN 2-12 grossly intact - Psychiatric oriented to person, oriented to place, speech is normal - Labs 09/22/16 11:15 09/23/16 05:21 Diabetes panel 09/22/16 09/23/16 Range/Units 11:15 05:21 Sodium 138 139 (136-145) mEq/L Potassium 3.5 3.3 L (3.5-4.5) mEq/L Chloride 101 104 (98-109) mEq/L Carbon Dioxide 28 25 (19-29) mEq/L BUN 10 9 (8-26) mg/dL Creatinine 1.04 0.97 (0.72-1.25) mg/dL Glucose 186 H 152 H (70-99) mg/dL Calcium 9.5 8.9 (8.6-10.8) mg/dL Calcium panel 09/22/16 09/23/16 Range/Units 11:15 05:21 Calcium 9.5 8.9 (8.6-10.8) mg/dL Pituitary panel 09/22/16 09/23/16 Range/Units 11:15 05:21 Sodium 138 139 (136-145) mEq/L Potassium 3.5 3.3 L (3.5-4.5) mEq/L Chloride 101 104 (98-109) mEq/L Carbon Dioxide 28 25 (19-29) mEq/L BUN 10 9 (8-26) mg/dL Creatinine 1.04 0.97 (0.72-1.25) mg/dL Glucose 186 H 152 H (70-99) mg/dL Calcium 9.5 8.9 (8.6-10.8) mg/dL Adrenal panel 09/22/16 09/23/16 Range/Units 11:15 05:21 Sodium 138 139 (136-145) mEq/L Potassium 3.5 3.3 L (3.5-4.5) mEq/L Chloride 101 104 (98-109) mEq/L Carbon Dioxide 28 25 (19-29) mEq/L BUN 10 9 (8-26) mg/dL Creatinine 1.04 0.97 (0.72-1.25) mg/dL Glucose 186 H 152 H (70-99) mg/dL Calcium 9.5 8.9 (8.6-10.8) mg/dL Consult Discharge Plan - Plan Referrals: NO,PCP [Primary Care Provider] - - Attending Attestation I examined this patient and my medical decision-making was reviewed with the SENIOR MECHANICAL TECHNICIAN/PA/Advanced Practice Nurse/Resident Physician. I agree with the documented findings, disposition and treatment plan as described except to the extent set forth below. <Osito Mccormick - Last Filed: 09/23/16 13:25> Date of Encounter: 09/23/16 Objective Vital Signs - Last 8 Hours Temp Pulse Resp BP Pulse Ox 09/23/16 12:05 98.4 F 78 14 132/77 100 09/23/16 07:35 98.4 F 78 16 108/70 97 Intake and Output 09/22/16 09/23/16 09/23/16 23:59 07:59 15:59 Intake Total 200 / 200 0 / 0 480 / 480 Output Total 200 / 200 200 / 200 0 / 0 Balance 0 / 0 -200 / -200 480 / 480 Intake: Oral 200 / 200 0 / 0 480 / 480 Output: Urine 200 / 200 0 / 0 Catheter 200 / 200 0 / 0 Other: Meal Breakfast Stool Size Small Large Stool Consistency liquid liquid Stool Characteristics Seedy Stool Color Hernandez Green Black # Bowel Movements 1 # Bowel Movement Diapers 1 Weight 85.389 kg Blood Glucose* 246 155 252 Patient Weight 09/23/16 23:59 Weight 85.389 kg - Labs 09/22/16 11:15 09/23/16 05:21 Diabetes panel 09/23/16 Range/Units 05:21 Sodium 139 (136-145) mEq/L Potassium 3.3 L (3.5-4.5) mEq/L Chloride 104 (98-109) mEq/L Carbon Dioxide 25 (19-29) mEq/L BUN 9 (8-26) mg/dL Creatinine 0.97 (0.72-1.25) mg/dL Glucose 152 H (70-99) mg/dL Calcium 8.9 (8.6-10.8) mg/dL Calcium panel 09/23/16 Range/Units 05:21 Calcium 8.9 (8.6-10.8) mg/dL Pituitary panel 09/23/16 Range/Units 05:21 Sodium 139 (136-145) mEq/L Potassium 3.3 L (3.5-4.5) mEq/L Chloride 104 (98-109) mEq/L Carbon Dioxide 25 (19-29) mEq/L BUN 9 (8-26) mg/dL Creatinine 0.97 (0.72-1.25) mg/dL Glucose 152 H (70-99) mg/dL Calcium 8.9 (8.6-10.8) mg/dL Adrenal panel 09/23/16 Range/Units 05:21 Sodium 139 (136-145) mEq/L Potassium 3.3 L (3.5-4.5) mEq/L Chloride 104 (98-109) mEq/L Carbon Dioxide 25 (19-29) mEq/L BUN 9 (8-26) mg/dL Creatinine 0.97 (0.72-1.25) mg/dL Glucose 152 H (70-99) mg/dL Calcium 8.9 (8.6-10.8) mg/dL - Attending Attestation Reviewed the assessment and evaluation and agree the patient has no abdominal symptoms. He has had multiple bowel movements after having had the MiraLAX/ Gatorade and has no pain on palpation. His abdomen is not distended and he has positive bowel sounds. Agree with advancing his food to soft mechanical diet. Further advancement as tolerated and will sign off.
[2016-09-23] MEDS: Ziprasidone 20 MG CAPSULE PO SCH ×2 (10:46→20:01)
[2016-09-23] MEDS: Temazepam 15 MG CAPSULE PO SCH (20:02)
[2016-09-23] MEDS: Mirtazapine 15 MG TABLET PO SCH (20:03)
[2016-09-24] MEDS: Insulin LISPRO 300 UNITS/3 ML VIAL SQ SCH ×3 (06:51→11:45)
[2016-09-24] MEDS: *HR* Heparin 5,000 UNIT/ML VIAL SQ SCH (06:51)
[2016-09-24 06:57] LABS: BUN/Creatinine Ratio 9 (6-26); Blood Urea Nitrogen 9 mg/dL (8-26); Calcium 8.9 mg/dL (8.6-10.8); Carbon Dioxide 27 mEq/L (19-29); Chloride 99 mEq/L (98-109); Glucose 171 mg/dL (70-99); Osmolality,Calculated 281 (280-300); Potassium 3.2 mEq/L (3.5-4.5); Sodium 134 mEq/L (136-145); eGFR For African Americans > 60 (> 60); eGFR For Non-African Americans > 60 (> 60)
[2016-09-24] MEDS: Pantoprazole 40 MG VIAL IVP SCH (08:39)
[2016-09-24] MEDS: Carbidopa/Levodopa 25/250 TABLET PO SCH (08:40)
[2016-09-24] MEDS: Magnesium Oxide 400 MG TABLET PO SCH (08:40)
[2016-09-24] MEDS: Venlafaxine XR (24 HR) 75 MG CAP.ER.24H PO SCH (08:40)
[2016-09-24] MEDS: Iron Polysaccharide Complex 150 MG CAPSULE PO SCH (08:40)
[2016-09-24] MEDS: Ziprasidone 20 MG CAPSULE PO SCH (08:40)
[2016-09-24] MEDS: Levothyroxine 25 MCG TABLET PO SCH (08:41)
[2016-09-24] MEDS: clonazePAM 0.5 MG TABLET PO SCH (08:41)
[2016-09-24] MEDS: Finasteride 5 MG TABLET PO SCH (08:41)
[2016-09-24] MEDS: Loratadine 10 MG TABLET PO SCH (08:41)
[2016-09-24] MEDS: Furosemide 40 MG TABLET PO SCH (08:41)
--- NOTE | 2016-09-24 09:49 | Discharge Summary ---
Date of Encounter: 09/24/16 Time of Encounter: 09:47 - Discharge Diagnosis (1) Small bowel obstruction due to adhesions Priority: Primary Status: Acute Comments: Partial SBO , improving (2) Dementia Priority: Secondary Status: Chronic Qualifiers: Dementia type: unspecified type Dementia behavioral disturbance: with behavioral disturbance Qualified Code(s): F03.91 - Unspecified dementia with behavioral disturbance (3) Diabetes mellitus Priority: Secondary Status: Chronic Qualifiers: Diabetes mellitus type: type 2 Diabetes mellitus complication status: with hyperglycemia Diabetes mellitus senior care insulin use: unspecified senior care insulin use status Qualified Code(s): E11.65 - Type 2 diabetes mellitus with hyperglycemia (4) Schizophrenia Priority: Secondary Status: Chronic Qualifiers: Schizophrenia type: unspecified Qualified Code(s): F20.9 - Schizophrenia, unspecified (5) SIENNA (acute kidney injury) Priority: Secondary Status: Resolved (6) Encephalopathy acute Priority: Secondary Status: Acute (7) Hypokalemia Priority: Secondary Status: Acute - Discharge Medications Prescriptions: ClonazePAM [Klonopin] 0.5 mg PO QAM #30 tablet HYDROcodone/Acet 5/325 mg [[place] 5-325 mg] 1 tab PO TID PRN #20 tab PRN Reason: Pain Omeprazole 20 mg PO DAILY #30 tablet.dr Home Medications: Allopurinol [Zyloprim] 200 mg PO QAM 04/19/16 [History] Clopidogrel [Plavix] 75 mg PO QAM 04/19/16 [History] Docusate [Colace] 100 mg PO BID 04/19/16 [History] Ergocalciferol (VITAMIN D2) [Vitamin D2 (50,000 UNIT)] 50,000 unit PO SA [History] Fluticasone Propionate Nasal [Flonase] 100 mcg NS DAILY 04/19/16 [History] Hydrocodone/Acetaminophen [[place] 5-325 Tablet] 1 tab PO BID 04/19/16 [History] Iron Polysaccharide Complex [Ferrex 150] 150 mg PO BID 04/19/16 [History] Lactulose 10 gm PO BID 04/19/16 [History] Levothyroxine [Synthroid] 25 mcg PO QAM 04/19/16 [History] Liraglutide [Victoza 2-Antoine] 1.8 mg SQ QAM 04/19/16 [History] Lisinopril [Zestril] 10 mg PO DAILY 04/19/16 [History] Metoprolol [Lopressor] 25 mg PO BID 04/19/16 [History] [place]-3/Dha/Epa/Fish Oil [Fish Oil 1,000 mg Softgel] 1 cap PO BID 04/19/16 [ History] Tamsulosin [Flomax] 0.4 mg PO HS 04/19/16 [History] Atorvastatin [Lipitor] 40 mg PO HS 04/20/16 [History] Finasteride [Proscar] 5 mg PO QAM 04/20/16 [History] Insulin ASPART [Novolog Flexpen] 3 - 12 unit SQ QID PRN 04/20/16 [History] Venlafaxine XR (24 HR) [Effexor Xr] 225 mg PO QAM 04/20/16 [History] Insulin Glargine,Hum.rec.anlog [Lantus Solostar] 50 unit SQ HS 07/17/16 [History ] Insulin Glargine,Hum.rec.anlog [Lantus Solostar] 50 unit SQ QAM 07/17/16 [ History] Acetaminophen [Tylenol] 500 mg PO BID 09/18/16 [History] Amantadine [Symmetrel] 100 mg PO BID 09/18/16 [History] Benztropine [Cogentin] 1 mg PO QAM 09/18/16 [History] Carbidopa/Levodopa [Carbidopa-Levodopa 25-250 Tab] 1 tab PO TID 09/18/16 [ History] Cetirizine HCl [All Day Allergy] 10 mg PO DAILY 09/18/16 [History] Furosemide [Lasix] 40 mg PO DAILY 09/18/16 [History] Mirtazapine 7.5 mg PO HS 09/18/16 [History] Potassium Chloride [Klor-Con Sprinkle] 10 meq PO DAILY 09/18/16 [History] Temazepam [Restoril] 15 mg PO HS 09/18/16 [History] Ziprasidone HCl [Geodon] 20 mg PO Q4H PRN 09/18/16 [History] Ziprasidone HCl [Geodon] 60 mg PO BID 09/18/16 [History] ClonazePAM [Klonopin] 0.5 mg PO QAM #30 tablet 09/24/16 [Rx] HYDROcodone/Acet 5/325 mg [[place] 5-325 mg] 1 tab PO TID PRN #20 tab 09/24/16 [Rx ] Omeprazole 20 mg PO DAILY #30 tablet. 09/24/16 [Rx] Allergies/Adverse Reactions: Allergies Sulfa (Sulfonamide Antibiotics) Allergy (Unknown, Verified 09/18/16 11:28) See Comments UNKNOWN REACTION- LISTED ON PATIENT'S MAR FROM [facility] Date of admission: 09/18/16 08:57 Primary care physician: PCP NO Consults: 09/18/16 06:57 Consult to Electro Optics Engineer [CONS] Routine Reason for SW Consult: Pt from [facility] and [facility] 09/18/16 09:07 Consult to Surgery [CONS] Routine Consulting Provider: Mila Barrera Surgical Reason for Consult: sbo Call Completed: No 09/21/16 08:07 Consult to Electro Optics Engineer [CONS] Routine Reason for SW Consult: Discharge disposition - Patient Status Disposition: Transfer SNF Condition: Good Overall status at discharge: patient is progressing back to baseline - Discharge Instructions Follow Up With: NO,PCP [Primary Care Provider] - Additional Instructions: Follow up with primary care physician within the next 7 days. Follow with urology within 7 days. May hold Plavix if hematuria is worse. Follow up with surgery within 2 weeks. - Diet and Activity Activity: increase activity as tolerated Diet: low fat, low cholesterol Hospital course: Mr. Pan is a 71 year old male resident of [place] (with a PMHx of COPD not O2 dep, coronary artery disease, dementia, diabetes, GERD, hyperlipidemia, hypertension , renal disease, Parkinson's disease, BPH, dementia, schizophrenia). He is a very poor historian, was transferred from [facility] where he was evaluated initialled for abdominal pain and distension with CT evidence of SBO bowel obstruction with transition point in the RLQ with suspicion for adhesions. He is s/p exploratory laparotomy and appendectomy in April of [address]ick. [address] abdomen: High grade small bowel obstruction with transition point in the RLQ. He had reported abdominal pain, nausea and vomiting for a couple of days. The [place] personnel thought it was due to constipation, trying laxatives without success. NG tube was placed and then removed. SMall bowel series showed delayed transition consistent with partial small bowel obstruction , there was a description of a SBO close to an anastomosis but the patient has never had an anastomosis done. He is tolerating his diet now, passing flatus and denies any abdominal pain . During his hospitalization he became very agitated as he was not able to keep his Geodon and Venlafaxine down but improved quickly after resuming both medications. During this episode he pulled his [place] and caused a possible minimal trauma with minimal hematuria that is clearing up. He can be discharge and follow with urology. - Time Spent with Patient Total time spent providing and/or coordinating discharge services: Greater than 30 minutes (40 min) - Constitutional Vitals: Temp Pulse Resp BP Pulse Ox 98.6 F 83 16 121/72 93 L 09/24/16 07:51 09/24/16 07:51 09/24/16 07:51 09/24/16 07:51 09/24/16 07:51 General appearance: Present: A&O X 3 (confused at times), pleasant, no acute distress, obese, answers questions appropriately - Head Head exam: Present: atraumatic, normocephalic - Eye Eye exam: Present: PERRL, conjuntiva pink, sclera anicteric Pupils: Present: PERRL - Neck Neck exam general surgery: Present: supple, trachea midline. Absent: lymphadenopathy - Respiratory Respiratory exam: Present: CTAB. Absent: accessory muscle use, rales, rhonchi, wheezes - Cardiovascular Cardiovascular exam: Present: RRR, +S1, +S2. Absent: diastolic murmur, gallop, rubs, systolic murmur - GI/Abdominal GI/Abdominal exam: Present: diminished bowel sounds, distended, soft, no peritoneal signs. Absent: tenderness - Extremities Exam Extremities exam: Present: warm, radial pulses palpable and symetrical. Absent : calf tenderness, cyanotic, pedal edema - Neurological Exam Neurological exam: Present: CN II-XII intact, oriented X3, no focal deficits. Absent: pronater drift, facial droop, speech deficit - Skin Skin exam: Present: dry, intact Additional comments: castro in place with minimal hematuria
--- NOTE | 2016-09-24 10:11 | Physician Discharge Referral ---
ExtendedCare Referral Info Provider in Charge after Transfer: PCP Institutional Level of Care: Skilled - Diagnosis (1) Small bowel obstruction due to adhesions Status: Acute (2) Dementia Status: Chronic (3) Diabetes mellitus Status: Chronic (4) Schizophrenia Status: Chronic (5) SIENNA (acute kidney injury) Status: Resolved (6) Encephalopathy acute Status: Acute (7) Hypokalemia Status: Acute - Transfer Medications Prescriptions: ClonazePAM [Klonopin] 0.5 mg PO QAM #30 tablet HYDROcodone/Acet 5/325 mg [[place] 5-325 mg] 1 tab PO TID PRN #20 tab PRN Reason: Pain Omeprazole 20 mg PO DAILY #30 tablet.dr Home Medications: Allopurinol [Zyloprim] 200 mg PO QAM 04/19/16 [History] Clopidogrel [Plavix] 75 mg PO QAM 04/19/16 [History] Docusate [Colace] 100 mg PO BID 04/19/16 [History] Ergocalciferol (VITAMIN D2) [Vitamin D2 (50,000 UNIT)] 50,000 unit PO SA [History] Fluticasone Propionate Nasal [Flonase] 100 mcg NS DAILY 04/19/16 [History] Hydrocodone/Acetaminophen [[place] 5-325 Tablet] 1 tab PO BID 04/19/16 [History] Iron Polysaccharide Complex [Ferrex 150] 150 mg PO BID 04/19/16 [History] Lactulose 10 gm PO BID 04/19/16 [History] Levothyroxine [Synthroid] 25 mcg PO QAM 04/19/16 [History] Liraglutide [Victoza 2-Antoine] 1.8 mg SQ QAM 04/19/16 [History] Lisinopril [Zestril] 10 mg PO DAILY 04/19/16 [History] Metoprolol [Lopressor] 25 mg PO BID 04/19/16 [History] [place]-3/Dha/Epa/Fish Oil [Fish Oil 1,000 mg Softgel] 1 cap PO BID 04/19/16 [ History] Tamsulosin [Flomax] 0.4 mg PO HS 04/19/16 [History] Atorvastatin [Lipitor] 40 mg PO HS 04/20/16 [History] Finasteride [Proscar] 5 mg PO QAM 04/20/16 [History] Insulin ASPART [Novolog Flexpen] 3 - 12 unit SQ QID PRN 04/20/16 [History] Venlafaxine XR (24 HR) [Effexor Xr] 225 mg PO QAM 04/20/16 [History] Insulin Glargine,Hum.rec.anlog [Lantus Solostar] 50 unit SQ HS 07/17/16 [History ] Insulin Glargine,Hum.rec.anlog [Lantus Solostar] 50 unit SQ QAM 07/17/16 [ History] Acetaminophen [Tylenol] 500 mg PO BID 09/18/16 [History] Amantadine [Symmetrel] 100 mg PO BID 09/18/16 [History] Benztropine [Cogentin] 1 mg PO QAM 09/18/16 [History] Carbidopa/Levodopa [Carbidopa-Levodopa 25-250 Tab] 1 tab PO TID 09/18/16 [ History] Cetirizine HCl [All Day Allergy] 10 mg PO DAILY 09/18/16 [History] Furosemide [Lasix] 40 mg PO DAILY 09/18/16 [History] Mirtazapine 7.5 mg PO HS 09/18/16 [History] Potassium Chloride [Klor-Con Sprinkle] 10 meq PO DAILY 09/18/16 [History] Temazepam [Restoril] 15 mg PO HS 09/18/16 [History] Ziprasidone HCl [Geodon] 20 mg PO Q4H PRN 09/18/16 [History] Ziprasidone HCl [Geodon] 60 mg PO BID 09/18/16 [History] ClonazePAM [Klonopin] 0.5 mg PO QAM #30 tablet 09/24/16 [Rx] HYDROcodone/Acet 5/325 mg [[place] 5-325 mg] 1 tab PO TID PRN #20 tab 09/24/16 [Rx ] Omeprazole 20 mg PO DAILY #30 tablet. 09/24/16 [Rx] Allergies/Adverse Reactions: Allergies Sulfa (Sulfonamide Antibiotics) Allergy (Unknown, Verified 09/18/16 11:28) See Comments UNKNOWN REACTION- LISTED ON PATIENT'S MAR FROM ECF - Respiratory Orders Smoking Cessation: Smoking cessation has been advised. For more information, call the [place] Tobacco Quit Line at 4-687-UNOI-NOW. - Advance Directives Code Status: Full Code - Treatments List/Other: Follow up with primary care physician within the next 7 days. Follow with urology within 7 days. May hold Plavix if hematuria is worse. Follow up with surgery within 2 weeks. Keep [place] in until appointment with urology - Diet Orders Mechanical Soft CERTIFICATION: I certify that the transfer of the above named patient to an Extended Care Facility is necessary for the continuing treatment of the diagnosis listed. The above information is true and accurate reflection of patient's current condition. Confidential - Redisclosure prohibited without a patient's written consent.
[2016-09-24 10:48] VITALS: BP 123/75
== END 2016-09-24 14:05 | DRG 388 ==
LOC: 3ANU → SUATTDRO 08:57
PROVIDERS: ADMIT Hospitalist; ATTEND Internal Medicine

== ENCOUNTER 2016-09-27 13:15 | Inpatient (IN) ==
[2016-09-27] MEDS ORDERED: Ondansetron 4 MG/2 ML VIAL IVP PRN (17:15)
[2016-09-27] MEDS ORDERED: Naloxone 0.4 MG/ML INJ IVP PRN (17:15)
[2016-09-27] MEDS ORDERED: *HR* Promethazine 25 MG/ML VIAL IVP PRN (17:15)
[2016-09-27] MEDS ORDERED: *HR* Morphine 2 MG/ML SYRINGE IVP PRN (17:15)
[2016-09-27] MEDS ORDERED: D5% in Water 1,000 ML IV PRN (17:20)
[2016-09-27] MEDS ORDERED: Dextrose Gel 15 GM PO PRN ×2 (17:20)
[2016-09-27] MEDS ORDERED: *HR* Dextrose 50 % in Water (Syg) 50 ML SYRINGE IVP PRN (17:20)
[2016-09-27] MEDS ORDERED: Ipratropium/Albuterol Neb 3 ML IH PRN (17:21)
[2016-09-27] MEDS ORDERED: 0.9 % Sodium Chloride 1,000 ML IVC SCH (17:30)
[2016-09-27] MEDS: Insulin LISPRO 300 UNITS/3 ML VIAL SQ SCH (18:00)
--- NOTE | 2016-09-27 19:22 | Internal Med History&Physical ---
Date of Encounter: 09/27/16 Time of Encounter: 19:00 Assessment and Plan (1) Small bowel obstruction Current visit: No Status: Acute Pt returns today for SBO. Admitted here from 09/18-09/24 for same and sent back to [facility]. He returns tonight for abd pain and vomiting. He has had no vomiting but is having liquid stool. Xray shows 5.1 cm dilated bowel with no free air. During exam pt denies pain. Abd distended and firm, non-tender, hyperactive bs. NG to LWS NPO IVF 0.9NS @ 75ml/hour Pain control as needed Dr. Mccormick consulted by ER physician. (2) SIENNA (acute kidney injury) Current visit: No Status: Acute Creatinine 1.57, GFR 44. SIENNA during last admission, resolved prior to discharge. Avoid nephrotoxins and NSAIDs Gentle hydration as above Monitor labs (3) Hypomagnesemia Current visit: Yes Status: Acute Mag 1.5. MgS04 1gram IV X 1. (4) COPD (chronic obstructive pulmonary disease) Current visit: No Status: Chronic Stable. Lungs clear. No acute cardiopulmonary process on chest xray. Will continue to monitor. Duonebs q4h. Qualifiers: COPD type: unspecified COPD Qualified Code(s): J44.9 - Chronic obstructive pulmonary disease, unspecified (5) Diabetes mellitus Current visit: No Status: Chronic Glucose 220, A1c 8.1% in 01/22. 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 Qualifiers: Hyperlipidemia type: unspecified Qualified Code(s): E78.5 - Hyperlipidemia , unspecified (7) Dementia Current visit: No Status: Chronic Pt close to nurse's station. Fall precautions Sitter for immediate mental health status Qualifiers: Dementia type: unspecified type Dementia behavioral disturbance: with behavioral disturbance Qualified Code(s): F03.91 - Unspecified dementia with behavioral disturbance (8) Suicidal ideation Current visit: Yes Status: Acute Pt tells admitting nurse that he if he could get the pillow over his head, he would do so. 1A consult to RN. Darien Cotater with pt. Internal Medicine - H&P: HPI Admitted From: Long-term Nursing Facility Plans for Post Hospital Care: Transfer [facility] History of present illness: Mr. Pan is a 71 year old male with history of DM, HTN, COPD, hyperlipidemia, dementia, and schizophrenia. Pt was admitted here from 09/18-09/24 for SBO. Pt returns tonight for same complaint. Today's AAS shows 5.1cm dilated bowel, no free air. During assessment, pt states that if he could get his pillow over his head, he would do it. 1A consulted. Pt denies abd pain, has had 3 episodes of liquid stool and says that he feels better. Pt abd distended, firm, non-tender and hyperactive BS. Past Med Surg Social Fam HX - Past Medical History Medical history: arthritis, COPD, coronary artery disease, dementia, diabetes, GERD, hyperlipidemia, hypertension, renal disease, other Psychiatric history: anxiety, depression, schizophrenia - Past Surgical History Surgical History: appendectomy - Social History Smoking Status: Former smoker Smokeless Tobacco Status: No Alcohol use: none Drug use: none Internal Medicine - H&P: Meds Allopurinol [Zyloprim] 200 mg PO QAM 04/19/16 [History] Clopidogrel [Plavix] 75 mg PO QAM 04/19/16 [History] Docusate [Colace] 100 mg PO BID 04/19/16 [History] Ergocalciferol (VITAMIN D2) [Vitamin D2 (50,000 UNIT)] 50,000 unit PO SA [History] Fluticasone Propionate Nasal [Flonase] 100 mcg NS DAILY 04/19/16 [History] Hydrocodone/Acetaminophen [[place] 5-325 Tablet] 1 tab PO BID 04/19/16 [History] Iron Polysaccharide Complex [Ferrex 150] 150 mg PO BID 04/19/16 [History] Lactulose 10 gm PO BID 04/19/16 [History] Levothyroxine [Synthroid] 25 mcg PO QAM 04/19/16 [History] Liraglutide [Victo[place] 2-Antoine] 1.8 mg SQ QAM 04/19/16 [History] Lisinopril [Zestril] 10 mg PO DAILY 04/19/16 [History] Metoprolol [Lopressor] 25 mg PO BID 04/19/16 [History] [place]-3/Dha/Epa/Fish Oil [Fish Oil 1,000 mg Softgel] 1 cap PO BID 04/19/16 [ History] Tamsulosin [Flomax] 0.4 mg PO HS 04/19/16 [History] Atorvastatin [Lipitor] 40 mg PO HS 04/20/16 [History] Finasteride [Proscar] 5 mg PO QAM 04/20/16 [History] Insulin ASPART [Novolog Flexpen] 3 - 12 unit SQ QID PRN 04/20/16 [History] Venlafaxine XR (24 HR) [Effexor Xr] 225 mg PO QAM 04/20/16 [History] Insulin Glargine,Hum.rec.anlog [Lantus Solostar] 50 unit SQ HS 07/17/16 [History ] Insulin Glargine,Hum.rec.anlog [Lantus Solostar] 50 unit SQ QAM 07/17/16 [ History] Acetaminophen [Tylenol] 500 mg PO BID 09/18/16 [History] Amantadine [Symmetrel] 100 mg PO BID 09/18/16 [History] Benztropine [Cogentin] 1 mg PO QAM 09/18/16 [History] Carbidopa/Levodopa [Carbidopa-Levodopa 25-250 Tab] 1 tab PO TID 09/18/16 [ History] Cetirizine HCl [All Day Allergy] 10 mg PO DAILY 09/18/16 [History] Furosemide [Lasix] 40 mg PO DAILY 09/18/16 [History] Mirtazapine 7.5 mg PO HS 09/18/16 [History] Potassium Chloride [Klor-Con Sprinkle] 10 meq PO DAILY 09/18/16 [History] Temazepam [Restoril] 15 mg PO HS 09/18/16 [History] Ziprasidone HCl [Geodon] 60 mg PO BID 09/18/16 [History] ClonazePAM [Klonopin] 0.5 mg PO QAM #30 tablet 09/24/16 [Rx] Omeprazole 20 mg PO DAILY #30 tablet. 09/24/16 [Rx] Mirtazapine 7.5 mg PO HS 09/27/16 [History] Allergies Sulfa (Sulfonamide Antibiotics) Allergy (Unknown, Verified 09/18/16 11:28) See Comments UNKNOWN REACTION- LISTED ON PATIENT'S MAR FROM ECF All Systems PM: A 10-system review of systems was performed and is negative for pertinent findings except as documented above in the HPI. - Constitutional Constitutional: no fatigue, no fever(s), no weakness - Cardiovascular Cardiovascular ROS IM: no chest pain, no dyspnea, no orthopnea, no palpitations - Respiratory Respiratory: no dyspnea, no pain on inspiration - Gastrointestinal Gastrointestinal: diarrhea, no cramping, no nausea, no vomiting - Constitutional Vitals: Temp Pulse Resp BP Pulse Ox 98.8 F 94 18 116/70 98 09/27/16 16:28 09/27/16 16:28 09/27/16 16:28 09/27/16 16:28 09/27/16 17:05 General appearance: Present: A&O X 3, no acute distress - Respiratory Respiratory exam: Present: CTAB. Absent: chest wall tenderness, decreased breath sounds, respiratory distress, rhonchi, wheezes - Cardiovascular Cardiovascular exam: Present: RRR, +S1, +S2 - GI/Abdominal GI/Abdominal exam: Present: distended, hyperactive bowel sounds, rigid. Absent : tenderness - Extremities Exam Extremities exam: Present: normal inspection, warm, radial pulses palpable and symetrical. Absent: mottling, pedal edema Additional comments: Pt with +1 lee ann pedal pulses - Neurological Exam Neurological exam: Present: alert, no focal deficits. Absent: speech deficit Additional comments: oriented x 2.
[2016-09-27] MEDS ORDERED: Magnesium Sulfate 1 GM in D5% in Water 100 ML IVPB ONE (19:45)
[2016-09-27 20:23] LABS: Hemoglobin A1C 8.3 %
[2016-09-28] MEDS: Insulin LISPRO 300 UNITS/3 ML VIAL SQ SCH ×4 (01:05→17:35)
[2016-09-28] MEDS: Ringers Solution, Lactated 1,000 ML IVC SCH ×2 (01:05→11:33)
[2016-09-28 05:31] LABS: INR 1.2; Prothrombin Time 12.7 Seconds (9.4-12.1)
[2016-09-28 05:33] LABS: Basophils # 0.1 K/mcL (0.0-0.2); Basophils % 0.8 %; Eosinophils # 0.3 K/mcL (0.0-0.6); Eosinophils % 3.8 %; Hemoglobin 12.7 g/dL (12.9-16.9); Immature Granulocytes % 1.4 % (0-4); Lymphocytes # 1.4 K/mcL (0.6-4.6); Lymphocytes % 16.2 %; Mean Corpuscular HGB Conc 33.4 g/dL (31.6-35.5); Mean Corpuscular Hemoglobin 30.6 pg (28.0-33.3); Mean Corpuscular Volume 91.6 fL (83.0-100.0); Mean Platelet Volume 11.6 fL (9.4-12.4); Monocytes % 11.7 %; Neutrophils # 5.6 K/mcL (1.6-8.9); Platelet Count 214 K/mcL (140-400); Red Blood Count 4.15 M/mcL (4.19-5.50); Red Cell Distribution Width 13.1 % (11.5-14.5); Segmented Neutrophils % 66.1 %
[2016-09-28 05:47] LABS: BUN/Creatinine Ratio 15 (6-26); Blood Urea Nitrogen 19 mg/dL (8-26); Calcium 8.8 mg/dL (8.6-10.8); Carbon Dioxide 24 mEq/L (19-29); Chloride 103 mEq/L (98-109); Glucose 168 mg/dL (70-99); Magnesium 1.7 mg/dL (1.6-2.6); Osmolality,Calculated 292 (280-300); Phosphorous 2.9 mg/dL (2.3-4.7); Potassium 3.6 mEq/L (3.5-4.5); Sodium 138 mEq/L (136-145); eGFR For African Americans > 60 (> 60); eGFR For Non-African Americans 54 (> 60)
--- NOTE | 2016-09-28 08:01 | General Surgery Consult Note ---
Date of Encounter: 09/29/16 Time of Encounter: 07:59 Assessment and Plan (1) Partial small bowel obstruction Current Visit: Yes Status: Acute The patient actually has signs of having a bowel movement currently during my examination. His abdomen appears flatter than it was when I last saw him last week. He has an NG tube present with no NG tube output. He has known history of malrotation and partial small bowel obstruction. I will go ahead and have them give the MiraLAX Gatorade through the NG tube to prove that he is not having any signs of obstruction and to evacuate the stool that is present within his colon and will follow with you. History of Present Illness Consult date: 09/28/16 History of present illness: The patient is a 71 year old male well-known to general surgery service. He has a history of malrotation and underwent a expiratory celiotomy, the rotation of an internal hernia, and appendectomy in May 2016. He was in the hospital last week for signs of possible bowel obstruction which in fact was a partial small bowel obstruction. He was discharged and we presented for supposedly abdominal pain and vomiting. His been no documented signs of vomiting and a CT scan was performed which shows small bowel dilation of approximately 4.2 cm with some air-fluid levels but no masses. The patient has had flatus and has bowel movements throughout this entire course. The patient actually has had bowel movements even during his admission for possible bowel obstruction last week. He denies any pain but does admit to pain with palpation. EKG is unsure whether or not he has a bowel movement but he has a history of MRDD. There has been no documented signs of hematemesis or rectal bleeding present. Past Med Surg Social Fam HX - Past Medical History Medical history: arthritis, COPD, coronary artery disease, dementia, diabetes, GERD, hyperlipidemia, hypertension, renal disease, other Psychiatric history: anxiety, depression, schizophrenia - Past Surgical History Surgical History: appendectomy - Social History Smoking Status: Former smoker Smokeless Tobacco Status: No Alcohol use: none Drug use: none Medications and Allergies Allopurinol [Zyloprim] 200 mg PO QAM 04/19/16 [History] Clopidogrel [Plavix] 75 mg PO QAM 04/19/16 [History] Fluticasone Propionate Nasal [Flonase] 100 mcg NS HS 04/19/16 [History] Hydrocodone/Acetaminophen [[place] 5-325 Tablet] 1 tab PO BID 04/19/16 [History] Iron Polysaccharide Complex [Ferrex 150] 150 mg PO BID 04/19/16 [History] Lactulose 10 gm PO BID 04/19/16 [History] Levothyroxine [Synthroid] 25 mcg PO QAM 04/19/16 [History] Liraglutide [Victoza 2-Antoine] 1.8 mg SQ QAM 04/19/16 [History] Lisinopril [Zestril] 10 mg PO DAILY 04/19/16 [History] Metoprolol [Lopressor] 25 mg PO BID 04/19/16 [History] [place]-3/Dha/Epa/Fish Oil [Fish Oil 1,000 mg Softgel] 1 cap PO BID 04/19/16 [ History] Tamsulosin [Flomax] 0.4 mg PO HS 04/19/16 [History] Atorvastatin [Lipitor] 40 mg PO HS 04/20/16 [History] Finasteride [Proscar] 5 mg PO QAM 04/20/16 [History] Insulin ASPART [Novolog Flexpen] 3 - 12 unit SQ QID PRN 04/20/16 [History] Venlafaxine XR (24 HR) [Effexor Xr] 225 mg PO QAM 04/20/16 [History] Insulin Glargine,Hum.rec.anlog [Lantus Solostar] 50 unit SQ HS 07/17/16 [History ] Insulin Glargine,Hum.rec.anlog [Lantus Solostar] 50 unit SQ QAM 07/17/16 [ History] Acetaminophen [Tylenol] 500 mg PO BID 09/18/16 [History] Amantadine [Symmetrel] 100 mg PO BID 09/18/16 [History] Benztropine [Cogentin] 1 mg PO QAM 09/18/16 [History] Carbidopa/Levodopa [Carbidopa-Levodopa 25-250 Tab] 1 tab PO TID 09/18/16 [ History] Cetirizine HCl [All Day Allergy] 10 mg PO DAILY 09/18/16 [History] Furosemide [Lasix] 40 mg PO DAILY 09/18/16 [History] Potassium Chloride [Klor-Con Sprinkle] 10 meq PO DAILY 09/18/16 [History] Temazepam [Restoril] 15 mg PO HS 09/18/16 [History] Ziprasidone HCl [Geodon] 60 mg PO BID 09/18/16 [History] ClonazePAM [Klonopin] 0.5 mg PO QAM #30 tablet 09/24/16 [Rx] Omeprazole 20 mg PO DAILY #30 tablet. 09/24/16 [Rx] Mirtazapine 7.5 mg PO HS 09/27/16 [History] Allergies Sulfa (Sulfonamide Antibiotics) Allergy (Unknown, Verified 09/18/16 11:28) See Comments UNKNOWN REACTION- LISTED ON PATIENT'S MAR FROM [facility] Review of Systems All systems PM: reviewed and no additional remarkable complaints except as stated All systems PM: A 10-system review of systems was performed and is negative for pertinent findings except as documented above in the HPI. General Surgery Exam Initial Vital Signs Temp Pulse Resp BP Pulse Ox 98.8 F 94 18 116/70 98 09/27/16 16:28 09/27/16 16:28 09/27/16 16:28 09/27/16 16:28 09/27/16 16:28 - General physical appearance well developed, no distress - Eyes PERRL, normal ocular movement - Neck no masses, trachea midline, no lymphadectomy - Respiratory normal expansion, normal respiratory effort, clear to auscultation (Decreased breath sounds noted at the bases.) - Cardiovascular Cardiovascular exam: Present: RRR, no murmurs/rubs/gallops - Abdomen Abdomen general surgery: Present: bowel sounds present, soft, tender (mild generalized tenderness to moderate palpation.) - Incision Incision: Present: clean and dry, intact (No incisional hernia present.) - Neurologic Present: CN 2-12 grossly intact - Musculoskeletal Present: other (No clubbing, cyanosis, or edema) - Psychiatric Psychiatric general surgery: Present: A&Ox3 (Confused (baseline).) Exam Initial Vital Signs Temp Pulse Resp BP Pulse Ox 98.8 F 94 18 116/70 98 09/27/16 16:28 09/27/16 16:28 09/27/16 16:28 09/27/16 16:28 09/27/16 16:28 Results - Labs 09/29/16 05:34 09/29/16 05:34 Abnormal lab results RBC 4.15 M/mcL (4.19-5.50) L 09/28/16 05:08 Hgb 12.7 g/dL (12.9-16.9) L 09/28/16 05:08 PT 12.7 Seconds (9.4-12.1) H 09/28/16 05:08 Creatinine 1.31 mg/dL (0.72-1.25) H 09/28/16 05:08 Est GFR (Non-Af Amer) 54 (> 60) L 09/28/16 05:08 Glucose 168 mg/dL (70-99) H 09/28/16 05:08 Hemoglobin A1c 8.3 % (-5.6) H 09/27/16 20:11 Diabetes panel 09/27/16 09/28/16 Range/Units 20:11 05:08 Sodium 138 (136-145) mEq/L Potassium 3.6 (3.5-4.5) mEq/L Chloride 103 (98-109) mEq/L Carbon Dioxide 24 (19-29) mEq/L BUN 19 (8-26) mg/dL Creatinine 1.31 H (0.72-1.25) mg/dL Glucose 168 H (70-99) mg/dL Hemoglobin A1c 8.3 H ( - 5.6) % Calcium 8.8 (8.6-10.8) mg/dL Calcium panel 09/28/16 Range/Units 05:08 Calcium 8.8 (8.6-10.8) mg/dL Phosphorus 2.9 (2.3-4.7) mg/dL Pituitary panel 09/28/16 Range/Units 05:08 Sodium 138 (136-145) mEq/L Potassium 3.6 (3.5-4.5) mEq/L Chloride 103 (98-109) mEq/L Carbon Dioxide 24 (19-29) mEq/L BUN 19 (8-26) mg/dL Creatinine 1.31 H (0.72-1.25) mg/dL Glucose 168 H (70-99) mg/dL Calcium 8.8 (8.6-10.8) mg/dL Adrenal panel 09/28/16 Range/Units 05:08 Sodium 138 (136-145) mEq/L Potassium 3.6 (3.5-4.5) mEq/L Chloride 103 (98-109) mEq/L Carbon Dioxide 24 (19-29) mEq/L BUN 19 (8-26) mg/dL Creatinine 1.31 H (0.72-1.25) mg/dL Glucose 168 H (70-99) mg/dL Calcium 8.8 (8.6-10.8) mg/dL All other labs normal. - Imaging CT scan - abdomen: report reviewed, image reviewed (CT scan shows signs of dilation of small bowel with air-fluid levels. "Swirl sign" has been noted since the May CT scans to present. Patient has known malrotation.) Consult Discharge Plan - Plan Referrals: Liz Ferguson MD [Primary Care Provider] -
[2016-09-28] MEDS ORDERED: Polyethylene Glycol 3350 255 GM POWDER PO ONE (08:05)
--- NOTE | 2016-09-28 08:51 | Internal Med Progress Note ---
Date of Encounter: 09/28/16 Time of Encounter: 08:49 - Assessment and plan (1) Partial small bowel obstruction Current Visit: Yes Status: Acute Assessment and plan: Recently hospitalized and discharged about 4 days ago with similar complaints. CT abdomen/pelvis shows partial small bowel obstruction. He is noted to have history of intestinal malrotation and small bowel obstruction in the past. Surgery consult appreciated. Patient does not seem to be in distress, abdomen is not significantly distended. He has been started on MiraLAX bowel prep and is noted to be having bowel movements at this time. Nasogastric tube is connected to intermittent wall suction, not draining anything. No nausea or vomiting. Continue to keep nothing by mouth at this time with IV hydration and supportive care. Monitor and replace electrolytes. (2) SIENNA (acute kidney injury) Current Visit: Yes Status: Acute Assessment and plan: Serum creatinine and GFR noted to be improving. Continue IV hydration and monitor closely. Avoid nephrotoxic agents and contrast. (3) Hypomagnesemia Current Visit: Yes Status: Resolved Assessment and plan: Improved with IV magnesium sulfate supplementation. (4) Suicidal ideation Current Visit: Yes Status: Acute Assessment and plan: Denies suicidal ideation currently. Continue one-on-one sitter for patient safety. Psychiatry has been consulted, will follow-up recommendations. (5) COPD (chronic obstructive pulmonary disease) Current Visit: Yes Status: Chronic Assessment and plan: Not in acute exacerbation. Continue bronchodilators and supplemental oxygen as needed. Continue home meds. Qualifiers: COPD type: unspecified COPD Qualified Code(s): J44.9 - Chronic obstructive pulmonary disease, unspecified (6) Dementia Current Visit: Yes Status: Chronic Qualifiers: Dementia type: unspecified type Dementia behavioral disturbance: with behavioral disturbance Qualified Code(s): F03.91 - Unspecified dementia with behavioral disturbance (7) Diabetes mellitus Current Visit: Yes Status: Chronic Assessment and plan: Accu-Chek blood glucose monitoring with sliding scale insulin. Nothing by mouth at this time. 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 Able to tell me his name and where he is at. Reports some abdominal cramping. No chest pain, nausea, vomiting. Noted to be having bowel movements in diapers. - Constitutional Vitals: Temp Pulse Resp BP Pulse Ox 98.1 F 94 16 147/84 95 09/28/16 07:30 09/28/16 07:30 09/28/16 07:30 09/28/16 07:30 09/28/16 07:30 General appearance: Present: A&O X 2, no acute distress - Respiratory Respiratory exam: Present: CTAB (Anterolaterally). Absent: accessory muscle use , rales, rhonchi, wheezes - Cardiovascular Cardiovascular exam: Present: RRR, +S1, +S2. Absent: diastolic murmur, gallop, rubs, systolic murmur - GI/Abdominal GI/Abdominal exam: Present: diminished bowel sounds (Decreased bowel sounds on the right), normal bowel sounds, soft (Mildly distended, tenderness in upper abdomen. No guarding or rigidity.), no peritoneal signs. Absent: distended, tenderness Internal Medicine: Result - Labs CBC & Chem 7: 09/28/16 05:08 09/28/16 05:08 Labs: Short CBC 09/28/16 Range/Units 05:08 WBC 8.4 (4.3-11.1) K/mcL Hgb 12.7 L (12.9-16.9) g/dL Hct 38.0 (37.5-50.1) % Plt Count 214 (140-400) K/mcL Neutrophils # 5.6 (1.6-8.9) K/mcL BMP 09/28/16 05:08 Sodium 138 Potassium 3.6 Chloride 103 Carbon Dioxide 24 BUN 19 Creatinine 1.31 H Glucose 168 H Calcium 8.8 - ABG Interpretation ABG results: PT/INR, D-dimer PT 12.7 Seconds (9.4-12.1) H 09/28/16 05:08 - Impressions Impressions Abdomen/Pelvis CT 09/27/16 20:16 IMPRESSION: 1. Findings compatible with small bowel obstruction, possibly secondary to an internal hernia or volvulus. D/ / 09/27/2016 23:08:33 Olivier Harris MD / Meron Navarrete Interpreting Provider: Olivier Harris MD Consult Discharge Plan - Plan Referrals: Liz Ferguson MD [Primary Care Provider] -
[2016-09-28] MEDS: D5% in 0.45% NACL 1,000 ML IVC SCH ×2 (08:52→21:18)
--- NOTE | 2016-09-28 09:00 | General Surgery Progress Note ---
Date of Encounter: 09/28/16 Time of Encounter: 08:50 Objective Vital Signs - Last 8 Hours Temp Pulse Resp BP Pulse Ox 09/28/16 07:30 98.1 F 94 16 147/84 95 Intake and Output 09/27/16 09/28/16 09/28/16 23:59 07:59 15:59 Intake Total 1000 / 1000 Output Total 350 / 350 600 / 600 Balance -350 / -350 400 / 400 Intake: IV Fluids 1000 / 1000 Lactated Ringers 1,000 ML 1000 / 1000 @ 150 mls/hr IVC .Q6H40M [facility] Rx#:[id number] Oral 0 / 0 Output: Straight Cath 350 / 350 Catheter 600 / 600 Other: Meal NPO Stool Size Small Moderate Moderate Stool Consistency liquid liquid liquid Stool Color Boris Colored Boris Colored Brown # Bowel Movements 1 2 # Bowel Movement Diapers 1 1 Weight 85.5 kg Blood Glucose* 172 - Labs 09/28/16 05:08 09/28/16 05:08 Diabetes panel 09/27/16 09/28/16 Range/Units 20:11 05:08 Sodium 138 (136-145) mEq/L Potassium 3.6 (3.5-4.5) mEq/L Chloride 103 (98-109) mEq/L Carbon Dioxide 24 (19-29) mEq/L BUN 19 (8-26) mg/dL Creatinine 1.31 H (0.72-1.25) mg/dL Glucose 168 H (70-99) mg/dL Hemoglobin A1c 8.3 H ( - 5.6) % Calcium 8.8 (8.6-10.8) mg/dL Calcium panel 09/28/16 Range/Units 05:08 Calcium 8.8 (8.6-10.8) mg/dL Phosphorus 2.9 (2.3-4.7) mg/dL Pituitary panel 09/28/16 Range/Units 05:08 Sodium 138 (136-145) mEq/L Potassium 3.6 (3.5-4.5) mEq/L Chloride 103 (98-109) mEq/L Carbon Dioxide 24 (19-29) mEq/L BUN 19 (8-26) mg/dL Creatinine 1.31 H (0.72-1.25) mg/dL Glucose 168 H (70-99) mg/dL Calcium 8.8 (8.6-10.8) mg/dL Adrenal panel 09/28/16 Range/Units 05:08 Sodium 138 (136-145) mEq/L Potassium 3.6 (3.5-4.5) mEq/L Chloride 103 (98-109) mEq/L Carbon Dioxide 24 (19-29) mEq/L BUN 19 (8-26) mg/dL Creatinine 1.31 H (0.72-1.25) mg/dL Glucose 168 H (70-99) mg/dL Calcium 8.8 (8.6-10.8) mg/dL Consult Discharge Plan - Plan Referrals: Liz Ferguson MD [Primary Care Provider] -
[2016-09-28] MEDS: *HR* Heparin 5,000 UNIT/ML VIAL SQ SCH ×2 (13:28→18:03)
--- NOTE | 2016-09-28 16:48 | Consult Note ---
Date of Encounter: 09/29/16 Time of Encounter: 16:00 Assessment & Recommendation (1) Suicidal ideation Current visit: Yes Status: Acute Assessment & Recommendation: Patient is currently lethargic and delirious and cannot be evaluated for suicidal ideation. Please notify us if he becomes alert and oriented. Interfere and at this time no further recommendation. History of Present Illness Patient: new to practice Requesting Physician: Francie Batista MD Reason for consult: suicidal ideation History of present illness: Mr. Pan is a 71 year old male admitted for the second time was multiple medical problems including small bowel obstruction acute kidney injury, diabetes COPD dementia and a history of schizophrenia. Psychiatric consultation requested regarding patient making a statement to the nursing staff. On interview with the patient presented as an elderly white male lying in bed with his NG tube he was lethargic and sleeping and could not be interviewed but he appeared to be having significant medical problems that are still not stabilized as above. At this time evaluation would not be done and will follow if patient condition improved and become able to participate in interview. CC: Francie Batista MD Past Med Surg Social Fam HX - Past Medical History Medical history: arthritis, COPD, coronary artery disease, dementia, diabetes, GERD, hyperlipidemia, hypertension, renal disease, other - Past Psychiatric History Psychiatric history: Reports: schizophrenia - Past Surgical History Surgical History: appendectomy - Social History Smoking Status: Former smoker Smokeless Tobacco Status: No Alcohol use: none Drug use: none Medications & Allergies Allopurinol [Zyloprim] 200 mg PO QAM 04/19/16 [History] Clopidogrel [Plavix] 75 mg PO QAM 04/19/16 [History] Fluticasone Propionate Nasal [Flonase] 100 mcg NS HS 04/19/16 [History] Hydrocodone/Acetaminophen [[place] 5-325 Tablet] 1 tab PO BID 04/19/16 [History] Iron Polysaccharide Complex [Ferrex 150] 150 mg PO BID 04/19/16 [History] Lactulose 10 gm PO BID 04/19/16 [History] Levothyroxine [Synthroid] 25 mcg PO QAM 04/19/16 [History] Liraglutide [Victoza 2-Antoine] 1.8 mg SQ QAM 04/19/16 [History] Lisinopril [Zestril] 10 mg PO DAILY 04/19/16 [History] Metoprolol [Lopressor] 25 mg PO BID 04/19/16 [History] [place]-3/Dha/Epa/Fish Oil [Fish Oil 1,000 mg Softgel] 1 cap PO BID 04/19/16 [ History] Tamsulosin [Flomax] 0.4 mg PO HS 04/19/16 [History] Atorvastatin [Lipitor] 40 mg PO HS 04/20/16 [History] Finasteride [Proscar] 5 mg PO QAM 04/20/16 [History] Insulin ASPART [Novolog Flexpen] 3 - 12 unit SQ QID PRN 04/20/16 [History] Venlafaxine XR (24 HR) [Effexor Xr] 225 mg PO QAM 04/20/16 [History] Insulin Glargine,Hum.rec.anlog [Lantus Solostar] 50 unit SQ HS 07/17/16 [History ] Insulin Glargine,Hum.rec.anlog [Lantus Solostar] 50 unit SQ QAM 07/17/16 [ History] Acetaminophen [Tylenol] 500 mg PO BID 09/18/16 [History] Amantadine [Symmetrel] 100 mg PO BID 09/18/16 [History] Benztropine [Cogentin] 1 mg PO QAM 09/18/16 [History] Carbidopa/Levodopa [Carbidopa-Levodopa 25-250 Tab] 1 tab PO TID 09/18/16 [ History] Cetirizine HCl [All Day Allergy] 10 mg PO DAILY 09/18/16 [History] Furosemide [Lasix] 40 mg PO DAILY 09/18/16 [History] Potassium Chloride [Klor-Con Sprinkle] 10 meq PO DAILY 09/18/16 [History] Temazepam [Restoril] 15 mg PO HS 09/18/16 [History] Ziprasidone HCl [Geodon] 60 mg PO BID 09/18/16 [History] ClonazePAM [Klonopin] 0.5 mg PO QAM #30 tablet 09/24/16 [Rx] Omeprazole 20 mg PO DAILY #30 tablet. 09/24/16 [Rx] Mirtazapine 7.5 mg PO HS 09/27/16 [History] Allergies Sulfa (Sulfonamide Antibiotics) Allergy (Unknown, Verified 09/18/16 11:28) See Comments UNKNOWN REACTION- LISTED ON PATIENT'S MAR FROM [facility] Review of Systems Psychiatric: Reports: confusion, memory loss, other (Lethargic, delirious) Mental Status Exam Patient orientation: Yes Other (Patient is lethargic and delirious. Could not be evaluated.) Level of alertness: Other Patient appearance: Disheveled, Malodorous Additional observations: Patient is lethargic and noncommunicating. Results - Vital Signs Vital signs: Temp Pulse Resp BP Pulse Ox 97.9 F 75 17 135/97 97 09/28/16 15:25 09/28/16 15:25 09/28/16 15:25 09/28/16 15:25 09/28/16 15:25 - Labs Labs: Laboratory Last Values WBC 8.4 K/mcL (4.3-11.1) 09/28/16 05:08 RBC 4.15 M/mcL (4.19-5.50) L 09/28/16 05:08 Hgb 12.7 g/dL (12.9-16.9) L 09/28/16 05:08 Hct 38.0 % (37.5-50.1) 09/28/16 05:08 MCV 91.6 fL (83.0-100.0) 09/28/16 05:08 MCH 30.6 pg (28.0-33.3) 09/28/16 05:08 MCHC 33.4 g/dL (31.6-35.5) 09/28/16 05:08 RDW 13.1 % (11.5-14.5) 09/28/16 05:08 Plt Count 214 K/mcL (140-400) 09/28/16 05:08 MPV 11.6 fL (9.4-12.4) 09/28/16 05:08 Immature Gran % 1.4 % (0-4) 09/28/16 05:08 Seg Neutrophils % 66.1 % 09/28/16 05:08 Lymphocytes % 16.2 % 09/28/16 05:08 Monocytes % 11.7 % 09/28/16 05:08 Eosinophils % 3.8 % 09/28/16 05:08 Basophils % 0.8 % 09/28/16 05:08 Neutrophils # 5.6 K/mcL (1.6-8.9) 09/28/16 05:08 Lymphocytes # 1.4 K/mcL (0.6-4.6) 09/28/16 05:08 Monocytes # 1.0 K/mcL (0.0-1.3) 09/28/16 05:08 Eosinophils # 0.3 K/mcL (0.0-0.6) 09/28/16 05:08 Basophils # 0.1 K/mcL (0.0-0.2) 09/28/16 05:08 PT 12.7 Seconds (9.4-12.1) H 09/28/16 05:08 INR 1.2 09/28/16 05:08 Sodium 138 mEq/L (136-145) 09/28/16 05:08 Potassium 3.6 mEq/L (3.5-4.5) 09/28/16 05:08 Chloride 103 mEq/L (98-109) 09/28/16 05:08 Carbon Dioxide 24 mEq/L (19-29) 09/28/16 05:08 BUN 19 mg/dL (8-26) 09/28/16 05:08 Creatinine 1.31 mg/dL (0.72-1.25) H 09/28/16 05:08 Est GFR ( Amer) > 60 (> 60) 09/28/16 05:08 Est GFR (Non-Af Amer) 54 (> 60) L 09/28/16 05:08 BUN/Creatinine Ratio 15 (6-26) 09/28/16 05:08 Glucose 168 mg/dL (70-99) H 09/28/16 05:08 POC Glucose 272 (58-89) H 09/28/16 11:35 Est Mean Plasma Glucose 192 mg/dl 09/27/16 20:11 Hemoglobin A1c 8.3 % (-5.6) H 09/27/16 20:11 Calculated Osmolality 292 (280-300) 09/28/16 05:08 Calcium 8.8 mg/dL (8.6-10.8) 09/28/16 05:08 Phosphorus 2.9 mg/dL (2.3-4.7) 09/28/16 05:08 Magnesium 1.7 mg/dL (1.6-2.6) 09/28/16 05:08 - Impressions Impressions Abdomen/Pelvis CT 02/19/17 20:16 IMPRESSION: 1. Findings compatible with small bowel obstruction, possibly secondary to an internal hernia or volvulus. D/ / 09/27/2016 23:08:33 Olivier Harris MD / Meron Navarrete Interpreting Provider: Olivier Harris MD Consult Discharge Plan - Plan Referrals: Liz Ferguson MD [Primary Care Provider] -
[2016-09-28] MEDS: Temazepam 15 MG CAPSULE PO SCH (20:51)
[2016-09-28] MEDS: Carbidopa/Levodopa 25/250 TABLET PO SCH (20:51)
[2016-09-28] MEDS: ZIPRASIDONE HCL 60 MG PO SCH (20:58)
[2016-09-28] MEDS ORDERED: MIRTAZAPINE 7.5 MG PO SCH (21:00)
[2016-09-29] MEDS: Insulin LISPRO 300 UNITS/3 ML VIAL SQ SCH ×6 (02:51→21:48)
[2016-09-29 06:00] LABS: Basophils # 0.1 K/mcL (0.0-0.2); Basophils % 0.6 %; Eosinophils # 0.3 K/mcL (0.0-0.6); Hematocrit 36.2 % (37.5-50.1); Hemoglobin 12.5 g/dL (12.9-16.9); Immature Granulocytes % 1.1 % (0-4); Lymphocytes # 1.5 K/mcL (0.6-4.6); Lymphocytes % 18.7 %; Mean Corpuscular HGB Conc 34.5 g/dL (31.6-35.5); Mean Corpuscular Hemoglobin 31.6 pg (28.0-33.3); Mean Corpuscular Volume 91.6 fL (83.0-100.0); Mean Platelet Volume 11.8 fL (9.4-12.4); Monocytes # 0.7 K/mcL (0.0-1.3); Neutrophils # 5.3 K/mcL (1.6-8.9); Platelet Count 191 K/mcL (140-400); Red Blood Count 3.95 M/mcL (4.19-5.50); Red Cell Distribution Width 12.9 % (11.5-14.5); Segmented Neutrophils % 66.6 %
[2016-09-29] MEDS: *HR* Heparin 5,000 UNIT/ML VIAL SQ SCH ×2 (06:06→18:09)
[2016-09-29] MEDS: Levothyroxine 25 MCG TABLET PO SCH (06:07)
[2016-09-29 06:13] LABS: BUN/Creatinine Ratio 9 (6-26); Calcium 8.4 mg/dL (8.6-10.8); Carbon Dioxide 24 mEq/L (19-29); Chloride 102 mEq/L (98-109); Glucose 218 mg/dL (70-99); Magnesium 1.3 mg/dL (1.6-2.6); Osmolality,Calculated 281 (280-300); Potassium 3.3 mEq/L (3.5-4.5); Sodium 133 mEq/L (136-145); eGFR For African Americans > 60 (> 60); eGFR For Non-African Americans > 60 (> 60)
[2016-09-29 06:15] LABS: Blood Urea Nitrogen 8 mg/dL (8-26)
[2016-09-29] MEDS: ZIPRASIDONE HCL 60 MG PO SCH (07:31)
[2016-09-29] MEDS: clonazePAM 0.5 MG TABLET PO SCH (07:31)
[2016-09-29] MEDS: Venlafaxine XR (24 HR) 75 MG CAP.ER.24H PO SCH (07:31)
[2016-09-29] MEDS: Carbidopa/Levodopa 25/250 TABLET PO SCH ×3 (07:32→21:48)
[2016-09-29] MEDS: Finasteride 5 MG TABLET PO SCH (07:32)
[2016-09-29] MEDS: D5% in 0.45% NACL 1,000 ML IVC SCH (09:26)
[2016-09-29] MEDS ORDERED: Potassium Chloride 40 MEQ, Lidocaine 1% 2 ML in D5% in Water 500 ML IVPB ONE (09:32)
[2016-09-29] MEDS ORDERED: Magnesium Sulfate 2 GM in D5% in Water 100 ML IVPB ONE (09:34)
--- NOTE | 2016-09-29 09:35 | Internal Med Progress Note ---
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 need to have good bowel regimen [facility] discussed with bottle caser. 25 - 35 minutes - Subjective Interval history: Patient is more alert today and cooperative. Patient had multiple bowel movement. Patient denies any suicidal or homicidal ideation. Patient denies any abdominal pain. Patient denies any fever or chills - Constitutional Vitals: Temp Pulse Resp BP Pulse Ox 98.7 F 70 18 125/92 98 09/29/16 08:38 09/29/16 08:38 09/29/16 08:38 09/29/16 08:38 09/29/16 08:38 General appearance: Present: A&O X 2, no acute distress - Neck Neck exam general surgery: Present: supple, trachea midline. Absent: lymphadenopathy - Respiratory Respiratory exam: Present: decreased breath sounds, CTAB. Absent: accessory muscle use, rales, rhonchi, wheezes - GI/Abdominal GI/Abdominal exam: Present: normal bowel sounds, soft, tenderness (Mild diffuse abdominal discomfort), no peritoneal signs. Absent: distended - Extremities Exam Extremities exam: Present: calf tenderness, warm, radial pulses palpable and symetrical. Absent: cyanotic, pedal edema - Neurological Exam Neurological exam: Present: CN II-XII intact, no focal deficits. Absent: pronater drift, facial droop, speech deficit - Skin Skin exam: Present: dry, intact Internal Medicine: Result - Labs CBC & Chem 7: 09/29/16 05:34 09/29/16 05:34 Labs: Short CBC 09/29/16 Range/Units 05:34 WBC 8.0 (4.3-11.1) K/mcL Hgb 12.5 L (12.9-16.9) g/dL Hct 36.2 L (37.5-50.1) % Plt Count 191 (140-400) K/mcL Neutrophils # 5.3 (1.6-8.9) K/mcL BMP 09/29/16 05:34 Sodium 133 L Potassium 3.3 L Chloride 102 Carbon Dioxide 24 BUN 8 D Creatinine 0.87 Glucose 218 H Calcium 8.4 L - ABG Interpretation ABG results: PT/INR, D-dimer PT 12.7 Seconds (9.4-12.1) H 09/28/16 05:08 Consult Discharge Plan - Plan Referrals: Liz Ferguson MD [Primary Care Provider] -
--- NOTE | 2016-09-29 10:25 | General Surgery Progress Note ---
<Eliezer Tejeda - Last Filed: 09/29/16 10:23> Date of Encounter: 09/29/16 Time of Encounter: 09:40 - Assessment and Plan (1) Partial small bowel obstruction Current Visit: Yes Status: Acute The patient was able to tolerate the Miralax through his NG tube and had multiple bowel movements yesterday afternoon and this morning. Continues to have no output from NG tube. Discontinue NG tube. Begin clear liquids with diabetic modifications. Continue to monitor. (2) SIENNA (acute kidney injury) Current Visit: Yes Status: Acute Resolved with creatitine of 0.87 today. Avoid nephrotoxins. Continue to monitor. (3) Hypomagnesemia Current Visit: Yes Status: Resolved Replacement per medicine team. (4) Suicidal ideation Current Visit: Yes Status: Acute Denies suicidal ideation currently. Continue one-on-one sitter for patient safety. Psychiatry was unable to conduct an interview today, but will continue to follow. (5) Diabetes mellitus Current Visit: Yes Status: Chronic Begin clear liquid diet with diabetic modifications. Continue sliding scale insulin. Management per the medicine team. Qualifiers: Diabetes mellitus type: type 2 Diabetes mellitus complication status: with hyperglycemia Diabetes mellitus senior care insulin use: unspecified senior care insulin use status Qualified Code(s): E11.65 - Type 2 diabetes mellitus with hyperglycemia Subjective Patient reports: no new complaints, pain is less, voiding w/o difficulty, flatus , bowel movement Narrative: The patient denies nausea and vomiting and is asking to eat again. Objective Vital Signs - Last 8 Hours Temp Pulse Resp BP Pulse Ox 09/29/16 08:38 98.7 F 70 18 125/92 98 09/29/16 06:54 96 09/29/16 03:38 97.9 F 61 14 139/74 96 Intake and Output 09/28/16 09/29/16 09/29/16 23:59 07:59 15:59 Intake Total 475 / 475 767 / 767 233 / 233 Output Total 600 / 600 275 / 275 Balance -125 / -125 492 / 492 233 / 233 Intake: IV Fluids 475 / 475 767 / 767 233 / 233 D5% And 0.45% Nacl 1000 475 / 475 767 / 767 233 / 233 Ml Bag 1,000 ML @ 75 mls/ hr IVC .[id number] [facility] Rx#: [id number] Output: Gastric Tube Lavage 0 / 0 Amount Right Nare 0 / 0 Catheter 600 / 600 275 / 275 Other: Meal NPO dinner NPO Stool Size Copious Large Stool Consistency liquid loose Stool Characteristics Mucoid Seedy Stool Color Brown Green Green # Bowel Movement Diapers 1 1 Weight 83.1 kg Blood Glucose* 153 210 Patient Weight 09/29/16 23:59 Weight 83.1 kg - General physical appearance well nourished, no distress - Eyes normal ocular movement - ENT normal mucosa - Neck Neck exam: trachea midline - Respiratory normal respiratory effort, clear to auscultation - Abdomen Abdomen: Present: bowel sounds present, soft, tender (mild tenderness noted inferior to the umbilicus) - Integumentary no rash - Neurologic CN 2-12 grossly intact - Musculoskeletal normal posture - Psychiatric oriented to person, other (confused at baseline) - Labs 09/29/16 05:34 09/29/16 05:34 Diabetes panel 09/29/16 Range/Units 05:34 Sodium 133 L (136-145) mEq/L Potassium 3.3 L (3.5-4.5) mEq/L Chloride 102 (98-109) mEq/L Carbon Dioxide 24 (19-29) mEq/L BUN 8 D (8-26) mg/dL Creatinine 0.87 (0.72-1.25) mg/dL Glucose 218 H (70-99) mg/dL Calcium 8.4 L (8.6-10.8) mg/dL Calcium panel 09/29/16 Range/Units 05:34 Calcium 8.4 L (8.6-10.8) mg/dL Pituitary panel 09/29/16 Range/Units 05:34 Sodium 133 L (136-145) mEq/L Potassium 3.3 L (3.5-4.5) mEq/L Chloride 102 (98-109) mEq/L Carbon Dioxide 24 (19-29) mEq/L BUN 8 D (8-26) mg/dL Creatinine 0.87 (0.72-1.25) mg/dL Glucose 218 H (70-99) mg/dL Calcium 8.4 L (8.6-10.8) mg/dL Adrenal panel 09/29/16 Range/Units 05:34 Sodium 133 L (136-145) mEq/L Potassium 3.3 L (3.5-4.5) mEq/L Chloride 102 (98-109) mEq/L Carbon Dioxide 24 (19-29) mEq/L BUN 8 D (8-26) mg/dL Creatinine 0.87 (0.72-1.25) mg/dL Glucose 218 H (70-99) mg/dL Calcium 8.4 L (8.6-10.8) mg/dL Consult Discharge Plan - Plan Referrals: Liz Ferguson MD [Primary Care Provider] - - Attending Attestation I examined this patient and my medical decision-making was reviewed with the REJECT OPENER AND FILLER/PA/Advanced Practice Nurse/Resident Physician. I agree with the documented findings, disposition and treatment plan as described except to the extent set forth below. <Osito Mccormick - Last Filed: 09/29/16 16:19> Date of Encounter: 09/29/16 - Assessment and Plan (1) Partial small bowel obstruction Current Visit: Yes Status: Acute Objective Vital Signs - Last 8 Hours Temp Pulse Resp BP Pulse Ox 09/29/16 15:57 98.4 F 63 18 122/70 98 09/29/16 11:52 97.9 F 75 17 116/87 97 09/29/16 08:38 98.7 F 70 18 125/92 98 Intake and Output 09/29/16 09/29/16 09/29/16 07:59 15:59 23:59 Intake Total 767 / 767 1319 / 1319 Output Total 275 / 275 700 / 700 Balance 492 / 492 619 / 619 Intake: IV Fluids 767 / 767 439 / 439 D5% And 0.45% Nacl 1000 767 / 767 335 / 335 Ml Bag 1,000 ML @ 75 mls/ hr IVC .[id number] [facility] Rx#: [id number] Magnesium Sulfate 2 GM In 104 / 104 Dextrose 5% 100 ML @ 100 mls/hr IVPB ONCE ONE Rx# :[id number] Oral 880 / 880 Output: Gastric Tube Lavage 0 / 0 Amount Right Nare 0 / 0 Catheter 275 / 275 700 / 700 Other: Meal Lunch Stool Size Large Stool Consistency loose Stool Characteristics Mucoid Seedy Stool Color Green # Bowel Movement Diapers 1 Weight 83.1 kg Blood Glucose* 210 279 221 Patient Weight 09/29/16 23:59 Weight 83.1 kg - Labs 09/29/16 05:34 09/29/16 05:34 Diabetes panel 09/29/16 Range/Units 05:34 Sodium 133 L (136-145) mEq/L Potassium 3.3 L (3.5-4.5) mEq/L Chloride 102 (98-109) mEq/L Carbon Dioxide 24 (19-29) mEq/L BUN 8 D (8-26) mg/dL Creatinine 0.87 (0.72-1.25) mg/dL Glucose 218 H (70-99) mg/dL Calcium 8.4 L (8.6-10.8) mg/dL Calcium panel 09/29/16 Range/Units 05:34 Calcium 8.4 L (8.6-10.8) mg/dL Pituitary panel 09/29/16 Range/Units 05:34 Sodium 133 L (136-145) mEq/L Potassium 3.3 L (3.5-4.5) mEq/L Chloride 102 (98-109) mEq/L Carbon Dioxide 24 (19-29) mEq/L BUN 8 D (8-26) mg/dL Creatinine 0.87 (0.72-1.25) mg/dL Glucose 218 H (70-99) mg/dL Calcium 8.4 L (8.6-10.8) mg/dL Adrenal panel 09/29/16 Range/Units 05:34 Sodium 133 L (136-145) mEq/L Potassium 3.3 L (3.5-4.5) mEq/L Chloride 102 (98-109) mEq/L Carbon Dioxide 24 (19-29) mEq/L BUN 8 D (8-26) mg/dL Creatinine 0.87 (0.72-1.25) mg/dL Glucose 218 H (70-99) mg/dL Calcium 8.4 L (8.6-10.8) mg/dL - Attending Attestation Personally reviewed the notes and perform her physical examination at the bedside. Patient states that he has abdominal pain and states he has to have a bowel movement however he has had copious amount of bowel movements yesterday and today. No masses palpated in the abdomen appears not to be distended. Patient does admit to some nausea. Continue with clear liquids today. Patient is exhibiting signs of a partial small bowel obstruction. Which will watch closely.
[2016-09-29] MEDS ORDERED: D5% in 0.45% NACL 1,000 ML IVC SCH (16:30)
[2016-09-29] MEDS: Ziprasidone 20 MG CAPSULE PO SCH (21:47)
[2016-09-29] MEDS: Mirtazapine 15 MG TABLET PO SCH (21:47)
[2016-09-29] MEDS: Temazepam 15 MG CAPSULE PO SCH (21:47)
[2016-09-29] MEDS: Insulin DETEMIR 100 UNIT/ML X5UNITS SQ SCH (21:49)
[2016-09-30] MEDS: *HR* Heparin 5,000 UNIT/ML VIAL SQ SCH ×2 (06:57→17:50)
[2016-09-30] MEDS: Levothyroxine 25 MCG TABLET PO SCH (06:57)
[2016-09-30] MEDS: Insulin LISPRO 300 UNITS/3 ML VIAL SQ SCH ×4 (07:47→22:42)
[2016-09-30] MEDS: Carbidopa/Levodopa 25/250 TABLET PO SCH ×3 (07:49→22:41)
[2016-09-30] MEDS: Finasteride 5 MG TABLET PO SCH (07:49)
[2016-09-30] MEDS: Ziprasidone 20 MG CAPSULE PO SCH ×2 (07:49→22:41)
[2016-09-30] MEDS: Venlafaxine XR (24 HR) 75 MG CAP.ER.24H PO SCH (07:49)
[2016-09-30] MEDS: clonazePAM 0.5 MG TABLET PO SCH (07:50)
--- NOTE | 2016-09-30 09:08 | General Surgery Progress Note ---
<Osito Mccormick - Last Filed: 09/30/16 13:49> Date of Encounter: 09/30/16 - Assessment and Plan (1) Partial small bowel obstruction Current Visit: Yes Status: Acute Objective Vital Signs - Last 8 Hours Temp Pulse Resp BP Pulse Ox 09/30/16 10:49 98.1 F 63 16 108/67 96 09/30/16 06:54 98.6 F 65 17 151/69 99 Intake and Output 09/29/16 09/30/16 09/30/16 23:59 07:59 15:59 Intake Total 98 / 98 800 / 800 1200 / 1200 Output Total 2024 1700 / 1700 360 / 360 Balance -1927 / -1927 -900 / -900 840 / 840 Intake: IV Fluids 98 / 98 800 / 800 D5% And 0.45% Nacl 1000 98 / 98 800 / 800 Ml Bag 1,000 ML @ 75 mls/ hr IVC .[id number] [facility] Rx#: [id number] Oral 0 / 0 1200 / 1200 Output: Urine 850 / 850 800 / 800 Catheter 1175 / 1175 900 / 900 360 / 360 Other: Meal Lunch Stool Size Small Stool Consistency loose Stool Characteristics Mucoid Seedy Stool Color Yellow Green # Bowel Movement Diapers 1 Blood Glucose* 212 159 237 - Labs 09/29/16 05:34 09/29/16 05:34 Consult Discharge Plan - Plan Referrals: Liz Ferguson MD [Primary Care Provider] - - Attending Attestation Review the above-mentioned physical examination assessment. Patient has some mild distention but denies any abdominal pain today. Awaiting abdominal x-ray to be performed to determine whether or not it would be appropriate to advance his diet. <Janine Sun - Last Filed: 09/30/16 15:43> Date of Encounter: 09/30/16 - Assessment and Plan (1) Partial small bowel obstruction Current Visit: Yes Status: Acute AAS consistent with ileus and persistent small bowel dilation May advance to full liquid diet Objective Vital Signs - Last 8 Hours Temp Pulse Resp BP Pulse Ox 09/30/16 14:56 98.2 F 81 16 119/76 97 09/30/16 10:49 98.1 F 63 16 108/67 96 Intake and Output 09/29/16 09/30/16 09/30/16 23:59 07:59 15:59 Intake Total 98 / 98 800 / 800 1200 / 1200 Output Total 2024 1700 / 1700 360 / 360 Balance -1927 / -1927 -900 / -900 840 / 840 Intake: IV Fluids 98 / 98 800 / 800 D5% And 0.45% Nacl 1000 98 / 98 800 / 800 Ml Bag 1,000 ML @ 75 mls/ hr IVC .[id number] [facility] Rx#: [id number] Oral 0 / 0 1200 / 1200 Output: Urine 850 / 850 800 / 800 Catheter 1175 / 1175 900 / 900 360 / 360 Other: Meal Lunch Stool Size Small Stool Consistency loose Stool Characteristics Mucoid Seedy Stool Color Yellow Green # Bowel Movement Diapers 1 Blood Glucose* 212 159 237 - Labs 09/29/16 05:34 09/29/16 05:34 <Eliezer Tejeda - Last Filed: 09/30/16 16:29> Date of Encounter: 09/30/16 Time of Encounter: 08:20 - Assessment and Plan (1) Partial small bowel obstruction Current Visit: Yes Status: Acute The patient continues to have bowel movements. NG tube has been discontinued. Begin clear liquids with diabetic modifications. Continue to monitor. (2) SIENNA (acute kidney injury) Current Visit: Yes Status: Acute Resolved. Avoid nephrotoxins. Continue to monitor. (3) Hypomagnesemia Current Visit: Yes Status: Resolved Replacement per medicine team. (4) Suicidal ideation Current Visit: Yes Status: Acute Denies suicidal ideation currently. (5) Diabetes mellitus Current Visit: Yes Status: Chronic Begin clear liquid diet with diabetic modifications. Continue sliding scale insulin. Management per the medicine team. Qualifiers: Diabetes mellitus type: type 2 Diabetes mellitus complication status: with hyperglycemia Diabetes mellitus intermediate insulin use: unspecified intermediate teacher insulin use status Qualified Code(s): E11.65 - Type 2 diabetes mellitus with hyperglycemia Subjective Patient reports: feels better, tolerating liquids well, voiding w/o difficulty, flatus, bowel movement, afebrile Narrative: The patient denies nausea and vomiting with meals. He is requesting to have real food as opposed to just having jello and broths. He states that he is having some pain in his feet and that the are red. Objective Vital Signs - Last 8 Hours Temp Pulse Resp BP Pulse Ox 09/30/16 06:54 98.6 F 65 17 151/69 99 Intake and Output 09/29/16 09/30/16 09/30/16 23:59 07:59 15:59 Intake Total 98 / 98 800 / 800 600 / 600 Output Total 2024 1700 / 1700 Balance -1927 / -1927 -900 / -900 600 / 600 Intake: IV Fluids 98 / 98 800 / 800 D5% And 0.45% Nacl 1000 98 / 98 800 / 800 Ml Bag 1,000 ML @ 75 mls/ hr IVC .[id number] [facility] Rx#: [id number] Oral 0 / 0 600 / 600 Output: Urine 850 / 850 800 / 800 Catheter 1175 / 1175 900 / 900 Other: Meal Breakfast clear diet Stool Size Small Stool Consistency loose Stool Characteristics Mucoid Seedy Stool Color Yellow Green # Bowel Movement Diapers 1 Blood Glucose* 212 159 - General physical appearance well developed, well nourished, no distress - Eyes normal ocular movement - ENT normal mucosa - Neck Neck exam: trachea midline - Respiratory normal respiratory effort, clear to auscultation - Cardiovascular Cardiovascular exam: Present: RRR - Abdomen Abdomen: Present: bowel sounds present, soft, non tender - Integumentary no rash, no growths, other (No redness of the feet. Skin is intact and without lesions or ulcerations.) - Neurologic CN 2-12 grossly intact - Musculoskeletal normal posture - Psychiatric oriented to time, oriented to person, oriented to place, speech is normal, memory intact - Labs 09/29/16 05:34 09/29/16 05:34 - Attending Attestation I examined this patient and my medical decision-making was reviewed with the SAMPLE CASE PORTER/PA/Advanced Practice Nurse/Resident Physician. I agree with the documented findings, disposition and treatment plan as described except to the extent set forth below.
--- NOTE | 2016-09-30 19:53 | Internal Med Progress Note ---
Date of Encounter: 09/30/16 Time of Encounter: 14:00 - Assessment and plan (1) Constipation Current Visit: Yes Status: Acute Qualifiers: Constipation type: slow transit constipation Qualified Code(s): K59.01 - Slow transit constipation (2) Partial small bowel obstruction Current Visit: Yes Status: Acute (3) Diabetes mellitus Current Visit: Yes Status: Chronic Qualifiers: Diabetes mellitus type: type 2 Diabetes mellitus complication status: with hyperglycemia Diabetes mellitus superintendent container terminal insulin use: unspecified shelter insulin use status Qualified Code(s): E11.65 - Type 2 diabetes mellitus with hyperglycemia (4) Hypokalemia Current Visit: No Status: Acute - Time Spent With Patient Advance diet to soft,Physical therapy consult , Ambulate , Possible discharge next AM , D/C fluids less than 15 minutes - Subjective Interval history: patient is feeling better, tolerating his oral intake no acute issues overnight. No agitation - Constitutional Vitals: Temp Pulse Resp BP Pulse Ox 99.3 F 82 14 134/71 97 09/30/16 18:46 09/30/16 18:46 09/30/16 18:46 09/30/16 18:46 09/30/16 18:46 General appearance: Present: A&O X 2, no acute distress - Head Head exam: Present: atraumatic, normocephalic - Respiratory Respiratory exam: Present: decreased breath sounds. Absent: accessory muscle use, rales, rhonchi, wheezes - Cardiovascular Cardiovascular exam: Present: RRR, +S1, +S2. Absent: diastolic murmur, gallop, rubs, systolic murmur - GI/Abdominal GI/Abdominal exam: Present: distended, normal bowel sounds, soft, no peritoneal signs. Absent: tenderness - Extremities Exam Extremities exam: Present: warm. Absent: cyanotic, pedal edema Internal Medicine: Result - Labs CBC & Chem 7: 09/29/16 05:34 09/29/16 05:34 - ABG Interpretation ABG results: PT/INR, D-dimer PT 12.7 Seconds (9.4-12.1) H 09/28/16 05:08 - Impressions Impressions Abdomen/Pelvis CT 09/27/16 20:16 IMPRESSION: 1. Findings compatible with small bowel obstruction, possibly secondary to an internal hernia or volvulus. D/ / 09/27/2016 23:08:33 Olivier Harris MD / Meron Navarrete Interpreting Provider: Olivier Harris MD Chest/Abdomen X-ray 09/30/16 11:47 IMPRESSION: 1. Findings compatible with ileus. 2. Low lung volumes. D/ / Dejon Barber MD / Dejon Barber MD Interpreting Provider: Dejon Barber MD Consult Discharge Plan - Plan Referrals: Liz Ferguson MD [Primary Care Provider] -
[2016-09-30] MEDS: Temazepam 15 MG CAPSULE PO SCH (22:40)
[2016-09-30] MEDS: Mirtazapine 15 MG TABLET PO SCH (22:41)
[2016-09-30] MEDS: Insulin DETEMIR 100 UNIT/ML X5UNITS SQ SCH (22:41)
[2016-10-01] MEDS: Levothyroxine 25 MCG TABLET PO SCH (06:11)
[2016-10-01] MEDS: *HR* Heparin 5,000 UNIT/ML VIAL SQ SCH ×2 (06:12→17:51)
[2016-10-01 06:17] LABS: BUN/Creatinine Ratio 7 (6-26); Basophils # 0.1 K/mcL (0.0-0.2); Basophils % 0.9 %; Blood Urea Nitrogen 7 mg/dL (8-26); Calcium 9.4 mg/dL (8.6-10.8); Carbon Dioxide 27 mEq/L (19-29); Chloride 103 mEq/L (98-109); Eosinophils # 0.3 K/mcL (0.0-0.6); Eosinophils % 3.2 %; Glucose 156 mg/dL (70-99); Hemoglobin 13.4 g/dL (12.9-16.9); Immature Granulocytes % 1.4 % (0-4); Immature Platelets 9.4 % (1.1-6.1); Lymphocytes % 23.2 %; Magnesium 1.6 mg/dL (1.6-2.6); Mean Corpuscular HGB Conc 34.4 g/dL (31.6-35.5); Mean Corpuscular Hemoglobin 31.4 pg (28.0-33.3); Mean Corpuscular Volume 91.3 fL (83.0-100.0); Mean Platelet Volume 11.5 fL (9.4-12.4); Monocytes # 0.8 K/mcL (0.0-1.3); Monocytes % 8.6 %; Neutrophils # 5.4 K/mcL (1.6-8.9); Osmolality,Calculated 287 (280-300); Phosphorous 3.2 mg/dL (2.3-4.7); Platelet Count 231 K/mcL (140-400); Potassium 3.8 mEq/L (3.5-4.5); Red Blood Count 4.27 M/mcL (4.19-5.50); Red Cell Distribution Width 12.9 % (11.5-14.5); Segmented Neutrophils % 62.7 %; Sodium 138 mEq/L (136-145); eGFR For African Americans > 60 (> 60); eGFR For Non-African Americans > 60 (> 60)
[2016-10-01] MEDS: Carbidopa/Levodopa 25/250 TABLET PO SCH ×3 (08:26→20:09)
[2016-10-01] MEDS: Venlafaxine XR (24 HR) 75 MG CAP.ER.24H PO SCH (08:26)
[2016-10-01] MEDS: clonazePAM 0.5 MG TABLET PO SCH (08:27)
[2016-10-01] MEDS: Ziprasidone 20 MG CAPSULE PO SCH ×2 (08:27→20:11)
[2016-10-01] MEDS: Finasteride 5 MG TABLET PO SCH (08:27)
[2016-10-01] MEDS: Insulin LISPRO 300 UNITS/3 ML VIAL SQ SCH ×4 (08:36→21:23)
--- NOTE | 2016-10-01 13:45 | General Surgery Progress Note ---
<CorinneJanine Parish - Last Filed: 10/01/16 13:45> Date of Encounter: 10/01/16 Time of Encounter: 13:43 - Assessment and Plan (1) Partial small bowel obstruction Current Visit: Yes Status: Acute AAS consistent with ileus and persistent small bowel dilation Add reglan 10mg every 6 hours May advance to mechanical soft diet with diabetic modifications Subjective Patient reports: no new complaints, feels better, tolerating liquids well (full liquids), voiding w/o difficulty, flatus, no bowel movement (X 2 days), afebrile Objective Vital Signs - Last 8 Hours Temp Pulse Resp BP Pulse Ox 10/01/16 11:30 98.3 F 62 17 97/60 97 10/01/16 07:59 97.5 F L 68 14 108/66 98 Intake and Output 09/30/16 10/01/16 10/01/16 23:59 07:59 15:59 Intake Total 0 / 0 150 / 150 480 / 480 Output Total 950 / 950 500 / 500 Balance -950 / -950 -350 / -350 480 / 480 Intake: Oral 0 / 0 150 / 150 480 / 480 Output: Catheter 950 / 950 500 / 500 Other: Meal Breakfast Percent of Meal Consumed 100% Weight 79.9 kg Blood Glucose* 129 171 248 Patient Weight 10/01/16 23:59 Weight 79.9 kg - General physical appearance well developed, well nourished, no distress, no pain - Eyes normal ocular movement - ENT normal mucosa, atraumatic, normocephalic - Neck Neck exam: trachea midline - Respiratory normal respiratory effort - Abdomen Abdomen: Present: bowel sounds present, soft, non tender, distended (mildly ( improved)) - Neurologic CN 2-12 grossly intact - Psychiatric oriented to person, oriented to place, speech is normal - Labs 10/01/16 05:10 10/01/16 05:10 Diabetes panel 10/01/16 Range/Units 05:10 Sodium 138 (136-145) mEq/L Potassium 3.8 (3.5-4.5) mEq/L Chloride 103 (98-109) mEq/L Carbon Dioxide 27 (19-29) mEq/L BUN 7 L (8-26) mg/dL Creatinine 1.06 (0.72-1.25) mg/dL Glucose 156 H (70-99) mg/dL Calcium 9.4 (8.6-10.8) mg/dL Calcium panel 10/01/16 Range/Units 05:10 Calcium 9.4 (8.6-10.8) mg/dL Phosphorus 3.2 (2.3-4.7) mg/dL Pituitary panel 10/01/16 Range/Units 05:10 Sodium 138 (136-145) mEq/L Potassium 3.8 (3.5-4.5) mEq/L Chloride 103 (98-109) mEq/L Carbon Dioxide 27 (19-29) mEq/L BUN 7 L (8-26) mg/dL Creatinine 1.06 (0.72-1.25) mg/dL Glucose 156 H (70-99) mg/dL Calcium 9.4 (8.6-10.8) mg/dL Adrenal panel 10/01/16 Range/Units 05:10 Sodium 138 (136-145) mEq/L Potassium 3.8 (3.5-4.5) mEq/L Chloride 103 (98-109) mEq/L Carbon Dioxide 27 (19-29) mEq/L BUN 7 L (8-26) mg/dL Creatinine 1.06 (0.72-1.25) mg/dL Glucose 156 H (70-99) mg/dL Calcium 9.4 (8.6-10.8) mg/dL Consult Discharge Plan - Plan Referrals: Liz Ferguson MD [Primary Care Provider] - - Attending Attestation I examined this patient and my medical decision-making was reviewed with the SHEET ROCK APPLIER/PA/Advanced Practice Nurse/Resident Physician. I agree with the documented findings, disposition and treatment plan as described except to the extent set forth below. <Osito Mccormick - Last Filed: 10/01/16 17:13> Date of Encounter: 10/01/16 - Assessment and Plan (1) Partial small bowel obstruction Current Visit: Yes Status: Acute Objective Vital Signs - Last 8 Hours Temp Pulse Resp BP Pulse Ox 10/01/16 15:45 98.4 F 81 16 122/66 100 10/01/16 11:30 98.3 F 62 17 97/60 97 Intake and Output 10/01/16 10/01/16 10/01/16 07:59 15:59 23:59 Intake Total 150 / 150 480 / 480 Output Total 500 / 500 800 / 800 Balance -350 / -350 -320 / -320 Intake: Oral 150 / 150 480 / 480 Output: Catheter 500 / 500 800 / 800 Other: Meal Breakfast Percent of Meal Consumed 100% Weight 79.9 kg Blood Glucose* 171 197 Patient Weight 10/01/16 23:59 Weight 79.9 kg - Labs 10/01/16 05:10 10/01/16 05:10 Diabetes panel 10/01/16 Range/Units 05:10 Sodium 138 (136-145) mEq/L Potassium 3.8 (3.5-4.5) mEq/L Chloride 103 (98-109) mEq/L Carbon Dioxide 27 (19-29) mEq/L BUN 7 L (8-26) mg/dL Creatinine 1.06 (0.72-1.25) mg/dL Glucose 156 H (70-99) mg/dL Calcium 9.4 (8.6-10.8) mg/dL Calcium panel 10/01/16 Range/Units 05:10 Calcium 9.4 (8.6-10.8) mg/dL Phosphorus 3.2 (2.3-4.7) mg/dL Pituitary panel 10/01/16 Range/Units 05:10 Sodium 138 (136-145) mEq/L Potassium 3.8 (3.5-4.5) mEq/L Chloride 103 (98-109) mEq/L Carbon Dioxide 27 (19-29) mEq/L BUN 7 L (8-26) mg/dL Creatinine 1.06 (0.72-1.25) mg/dL Glucose 156 H (70-99) mg/dL Calcium 9.4 (8.6-10.8) mg/dL Adrenal panel 10/01/16 Range/Units 05:10 Sodium 138 (136-145) mEq/L Potassium 3.8 (3.5-4.5) mEq/L Chloride 103 (98-109) mEq/L Carbon Dioxide 27 (19-29) mEq/L BUN 7 L (8-26) mg/dL Creatinine 1.06 (0.72-1.25) mg/dL Glucose 156 H (70-99) mg/dL Calcium 9.4 (8.6-10.8) mg/dL - Attending Attestation Reviewed the above assessment and examination. Patient denies any current abdominal pain but denies any bowel movements. Reported flatus. I personally reviewed the abdominal x-rays from yesterday showing signs of ileus. Agree with addition of Reglan to see if this would assist with his passing of flatus. Continue with current diet.
--- NOTE | 2016-10-01 13:52 | Internal Med Progress Note ---
Date of Encounter: 10/01/16 Time of Encounter: 13:45 - Assessment and plan (1) Constipation Current Visit: Yes Status: Acute Assessment and plan: Agree with surgery to add Reglan, lactulose twice a day Qualifiers: Constipation type: slow transit constipation Qualified Code(s): K59.01 - Slow transit constipation (2) Partial small bowel obstruction Current Visit: Yes Status: Acute Assessment and plan: Improving advance diet as tolerated (3) Diabetes mellitus Current Visit: Yes Status: Chronic Qualifiers: Diabetes mellitus type: type 2 Diabetes mellitus complication status: with hyperglycemia Diabetes mellitus custodial insulin use: unspecified emt intermediate insulin use status Qualified Code(s): E11.65 - Type 2 diabetes mellitus with hyperglycemia (4) Physical deconditioning Current Visit: Yes Status: Acute Assessment and plan: Discussed with staff to ambulate, Up to chair - Time Spent With Patient Possible discharge next a.m., need good bowel regimen on discharge. PTOT. Monitor bowel movement. Monitor intake and output. Advanced to regular diet at the a.m. if okay with surgery. 25 - 35 minutes - Subjective Interval history: patient is sitting on chair in no distress, patient denies any abdominal pain, patient denies any nausea vomiting, he tolerated his soft food. No bowel movement, but he is passing gas - Constitutional Vitals: Temp Pulse Resp BP Pulse Ox 98.3 F 62 17 97/60 97 10/01/16 11:30 10/01/16 11:30 10/01/16 11:30 10/01/16 11:30 10/01/16 11:30 General appearance: Present: A&O X 2, no acute distress - Neck Neck exam general surgery: Present: supple, trachea midline. Absent: lymphadenopathy - Respiratory Respiratory exam: Present: CTAB. Absent: accessory muscle use, rales, rhonchi, wheezes - Cardiovascular Cardiovascular exam: Present: RRR, +S1, +S2. Absent: diastolic murmur, gallop, rubs, systolic murmur - GI/Abdominal GI/Abdominal exam: Present: distended, normal bowel sounds, soft, no peritoneal signs. Absent: tenderness - Extremities Exam Extremities exam: Present: pedal edema, warm, radial pulses palpable and symetrical. Absent: calf tenderness, cyanotic Internal Medicine: Result - Labs CBC & Chem 7: 10/01/16 05:10 10/01/16 05:10 Labs: Short CBC 10/01/16 Range/Units 05:10 WBC 8.7 (4.3-11.1) K/mcL Hgb 13.4 (12.9-16.9) g/dL Hct 39.0 (37.5-50.1) % Plt Count 231 (140-400) K/mcL Neutrophils # 5.4 (1.6-8.9) K/mcL BMP 10/01/16 05:10 Sodium 138 Potassium 3.8 Chloride 103 Carbon Dioxide 27 BUN 7 L Creatinine 1.06 Glucose 156 H Calcium 9.4 - ABG Interpretation ABG results: PT/INR, D-dimer PT 12.7 Seconds (9.4-12.1) H 09/28/16 05:08 - Impressions Impressions Chest/Abdomen X-ray 09/30/16 11:47 IMPRESSION: 1. Findings compatible with ileus. 2. Low lung volumes. D/ / Dejon Barber MD / Dejon Barber MD Interpreting Provider: Dejon Barber MD Consult Discharge Plan - Plan Referrals: Liz Ferguson MD [Primary Care Provider] -
[2016-10-01] MEDS: Metoclopramide 10 MG/2 ML VIAL IVP SCH ×3 (17:41→23:51)
[2016-10-01] MEDS: Magnesium Oxide 400 MG TABLET PO SCH (20:08)
[2016-10-01] MEDS: Mirtazapine 15 MG TABLET PO SCH (20:08)
[2016-10-01] MEDS: Temazepam 15 MG CAPSULE PO SCH (20:09)
[2016-10-01] MEDS: Lactulose Oral Soln 20 GM/30 ML UDC PO SCH (20:10)
[2016-10-01] MEDS: Insulin DETEMIR 100 UNIT/ML X5UNITS SQ SCH (21:24)
[2016-10-02] MEDS: Metoclopramide 10 MG/2 ML VIAL IVP SCH ×3 (06:10→17:56)
[2016-10-02] MEDS: *HR* Heparin 5,000 UNIT/ML VIAL SQ SCH ×2 (06:13→19:55)
[2016-10-02] MEDS: Levothyroxine 25 MCG TABLET PO SCH (06:14)
[2016-10-02] MEDS: clonazePAM 0.5 MG TABLET PO SCH (08:19)
[2016-10-02] MEDS: Ziprasidone 20 MG CAPSULE PO SCH ×2 (08:19→19:59)
[2016-10-02] MEDS: Finasteride 5 MG TABLET PO SCH (08:19)
[2016-10-02] MEDS: Magnesium Oxide 400 MG TABLET PO SCH ×2 (08:19→20:02)
[2016-10-02] MEDS: Lactulose Oral Soln 20 GM/30 ML UDC PO SCH ×2 (08:21→19:59)
[2016-10-02] MEDS: Insulin LISPRO 300 UNITS/3 ML VIAL SQ SCH ×4 (08:22→20:53)
[2016-10-02] MEDS: Carbidopa/Levodopa 25/250 TABLET PO SCH ×3 (08:37→20:02)
[2016-10-02] MEDS: Venlafaxine XR (24 HR) 75 MG CAP.ER.24H PO SCH (08:37)
--- NOTE | 2016-10-02 11:43 | General Surgery Progress Note ---
Date of Encounter: 10/02/16 Time of Encounter: 11:41 - Assessment and Plan (1) Partial small bowel obstruction Current Visit: Yes Status: Acute Continue mechanical soft diet with diabetic modifications Continue scheduled reglan Lactulose ordered per medicine team 10/01/16 Surgery will sign off at this time. Please call with any further questions/ concerns. Thank you for allowing us to participate in the care of this patient. Subjective Patient reports: no new complaints, feels better, tolerating a regular diet ( soft diet), voiding w/o difficulty, flatus, no bowel movement (since 09/29/16), afebrile Objective Vital Signs - Last 8 Hours Temp Pulse Resp BP Pulse Ox 10/02/16 07:00 97.3 F L 66 16 108/60 97 10/02/16 04:23 98.1 F 65 18 107/70 98 Intake and Output 10/01/16 10/02/16 10/02/16 23:59 07:59 15:59 Intake Total 100 / 100 240 / 240 480 / 480 Output Total 500 / 500 1225 / 1225 Balance -400 / -400 -985 / -985 480 / 480 Intake: Oral 100 / 100 240 / 240 480 / 480 Output: Urine 0 / 0 Catheter 500 / 500 1225 / 1225 Other: Meal Breakfast Percent of Meal Consumed 90% # Urine Diapers 0 Weight 80.286 kg Blood Glucose* 195 156 Patient Weight 10/02/16 23:59 Weight 80.286 kg - General physical appearance well developed, well nourished, no distress, no pain - Eyes normal ocular movement - ENT normal mucosa, atraumatic, normocephalic - Neck Neck exam: trachea midline - Respiratory normal respiratory effort - Cardiovascular Cardiovascular exam: Present: RRR - Abdomen Abdomen: Present: bowel sounds present, soft, non tender - Integumentary no rash, no growths - Neurologic CN 2-12 grossly intact - Psychiatric oriented to person, oriented to place, speech is normal - Labs 10/01/16 05:10 10/01/16 05:10 Consult Discharge Plan - Plan Referrals: Liz Ferguson MD [Primary Care Provider] - - Attending Attestation I examined this patient and my medical decision-making was reviewed with the SYSTEMS DESIGNER/PA/Advanced Practice Nurse/Resident Physician. I agree with the documented findings, disposition and treatment plan as described except to the extent set forth below.
[2016-10-02] MEDS ORDERED: Lactulose Oral Soln 20 GM/30 ML UDC PO ONE (15:44)
[2016-10-02] MEDS ORDERED: Lactulose 200 GM, Sodium Chloride IRRigation 700 ML RC ONE (16:31)
--- NOTE | 2016-10-02 17:17 | Internal Med Progress Note ---
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 Patient received extra doses of lactulose 30 Gram. No bowel movement yet. We will order lactulose enema. Recommended to stop iron therapy on discharge. Increase senna. Possible discharge next a.m. resume Lasix. Increase Lantus. Resume Protonix. 25 - 35 minutes - Subjective Interval history: Patient is tolerating all his meals, based on his staff surgeon recommended that okay for discharge once he has bowel movement, no bowel movement yet, patient received Reglan, lactulose twice a day, patient is passing gas - Constitutional Vitals: Temp Pulse Resp BP Pulse Ox 98.2 F 66 18 128/79 100 10/02/16 16:00 10/02/16 16:00 10/02/16 16:00 10/02/16 16:00 10/02/16 16:00 General appearance: Present: A&O X 2, no acute distress - Head Head exam: Present: atraumatic, normocephalic - Respiratory Respiratory exam: Present: CTAB. Absent: accessory muscle use, rales, rhonchi, wheezes - Cardiovascular Cardiovascular exam: Present: RRR, +S1, +S2. Absent: diastolic murmur, gallop, rubs, systolic murmur - GI/Abdominal GI/Abdominal exam: Present: distended, hypoactive bowel sounds, normal bowel sounds, soft, no peritoneal signs. Absent: hepatomegaly, tenderness - Extremities Exam Extremities exam: Present: warm, radial pulses palpable and symetrical. Absent : calf tenderness, cyanotic, pedal edema Internal Medicine: Result - Labs CBC & Chem 7: 10/01/16 05:10 10/01/16 05:10 - ABG Interpretation ABG results: PT/INR, D-dimer PT 12.7 Seconds (9.4-12.1) H 09/28/16 05:08 Consult Discharge Plan - Plan Referrals: Liz Ferguson MD [Primary Care Provider] -
[2016-10-02] MEDS: Mirtazapine 15 MG TABLET PO SCH (20:00)
[2016-10-02] MEDS: Temazepam 15 MG CAPSULE PO SCH (20:02)
[2016-10-02] MEDS: Insulin DETEMIR 100 UNIT/ML X5UNITS SQ SCH (20:53)
[2016-10-02] MEDS: (Omega-3/Dha/Epa/Fish Oil [Fish Oil 1,000 Mg Softgel] PO SCH (21:05)
[2016-10-03] MEDS: Metoclopramide 10 MG/2 ML VIAL IVP SCH ×2 (00:06→06:22)
[2016-10-03] MEDS ORDERED: Acetaminophen 325 MG TABLET PO PRN (01:06)
[2016-10-03 04:58] LABS: BUN/Creatinine Ratio 8 (6-26); Blood Urea Nitrogen 9 mg/dL (8-26); Calcium 9.5 mg/dL (8.6-10.8); Carbon Dioxide 21 mEq/L (19-29); Chloride 105 mEq/L (98-109); Glucose 194 mg/dL (70-99); Magnesium 1.7 mg/dL (1.6-2.6); Osmolality,Calculated 286 (280-300); Potassium 4.1 mEq/L (3.5-4.5); Sodium 136 mEq/L (136-145); eGFR For African Americans > 60 (> 60); eGFR For Non-African Americans > 60 (> 60)
[2016-10-03] MEDS: *HR* Heparin 5,000 UNIT/ML VIAL SQ SCH (06:25)
[2016-10-03] MEDS: Levothyroxine 25 MCG TABLET PO SCH (06:26)
[2016-10-03] MEDS: Venlafaxine XR (24 HR) 75 MG CAP.ER.24H PO SCH (07:39)
[2016-10-03] MEDS: Ziprasidone 20 MG CAPSULE PO SCH (07:40)
[2016-10-03] MEDS: Carbidopa/Levodopa 25/250 TABLET PO SCH (07:40)
[2016-10-03] MEDS: clonazePAM 0.5 MG TABLET PO SCH (07:41)
[2016-10-03] MEDS: Lactulose Oral Soln 20 GM/30 ML UDC PO SCH (07:41)
[2016-10-03] MEDS: Magnesium Oxide 400 MG TABLET PO SCH (07:42)
[2016-10-03] MEDS: Finasteride 5 MG TABLET PO SCH (07:42)
[2016-10-03] MEDS: (Omega-3/Dha/Epa/Fish Oil [Fish Oil 1,000 Mg Softgel] PO SCH (07:42)
[2016-10-03 07:43] VITALS: BP 103/64
[2016-10-03] MEDS: Insulin LISPRO 300 UNITS/3 ML VIAL SQ SCH (07:44)
[2016-10-03] MEDS: Insulin DETEMIR 100 UNIT/ML X5UNITS SQ SCH (08:08)
[2016-10-03] MEDS ORDERED: Furosemide 40 MG TABLET PO SCH (09:00)
--- NOTE | 2016-10-03 09:19 | Discharge Summary ---
Date of Encounter: 10/04/16 Time of Encounter: 09:17 - Discharge Diagnosis (1) Constipation Priority: Primary Status: Acute Qualifiers: Constipation type: slow transit constipation Qualified Code(s): K59.01 - Slow transit constipation (2) Partial small bowel obstruction Priority: Primary Status: Acute (3) COPD (chronic obstructive pulmonary disease) Priority: Secondary Status: Chronic Qualifiers: COPD type: unspecified COPD Qualified Code(s): J44.9 - Chronic obstructive pulmonary disease, unspecified - Discharge Medications Prescriptions: ClonazePAM [Klonopin] 0.5 mg PO QAM #30 tablet Temazepam [Restoril] 15 mg PO HS #30 capsule Home Medications: Allopurinol [Zyloprim] 200 mg PO QAM 04/19/16 [History] Clopidogrel [Plavix] 75 mg PO QAM 04/19/16 [History] Fluticasone Propionate Nasal [Flonase] 100 mcg NS HS 04/19/16 [History] Hydrocodone/Acetaminophen [[place] 5-325 Tablet] 1 tab PO BID 04/19/16 [History] Iron Polysaccharide Complex [Ferrex 150] 150 mg PO BID 04/19/16 [History] Lactulose 10 gm PO BID 04/19/16 [History] Levothyroxine [Synthroid] 25 mcg PO QAM 04/19/16 [History] Liraglutide [Victoza 2-Antoine] 1.8 mg SQ QAM 04/19/16 [History] Lisinopril [Zestril] 10 mg PO DAILY 04/19/16 [History] Metoprolol [Lopressor] 25 mg PO BID 04/19/16 [History] [place]-3/Dha/Epa/Fish Oil [Fish Oil 1,000 mg Softgel] 1 cap PO BID 04/19/16 [ History] Tamsulosin [Flomax] 0.4 mg PO HS 04/19/16 [History] Atorvastatin [Lipitor] 40 mg PO HS 04/20/16 [History] Finasteride [Proscar] 5 mg PO QAM 04/20/16 [History] Insulin ASPART [Novolog Flexpen] 3 - 12 unit SQ QID PRN 04/20/16 [History] Venlafaxine XR (24 HR) [Effexor Xr] 225 mg PO QAM 04/20/16 [History] Insulin Glargine,Hum.rec.anlog [Lantus Solostar] 50 unit SQ HS 07/17/16 [History ] Insulin Glargine,Hum.rec.anlog [Lantus Solostar] 50 unit SQ QAM 07/17/16 [ History] Acetaminophen [Tylenol] 500 mg PO BID 09/18/16 [History] Amantadine [Symmetrel] 100 mg PO BID 09/18/16 [History] Benztropine [Cogentin] 1 mg PO QAM 09/18/16 [History] Carbidopa/Levodopa [Carbidopa-Levodopa 25-250 Tab] 1 tab PO TID 09/18/16 [ History] Cetirizine HCl [All Day Allergy] 10 mg PO DAILY 09/18/16 [History] Furosemide [Lasix] 40 mg PO DAILY 09/18/16 [History] Potassium Chloride [Klor-Con Sprinkle] 10 meq PO DAILY 09/18/16 [History] Ziprasidone HCl [Geodon] 60 mg PO BID 09/18/16 [History] Omeprazole 20 mg PO DAILY #30 tablet. 09/24/16 [Rx] Mirtazapine 7.5 mg PO HS 09/27/16 [History] ClonazePAM [Klonopin] 0.5 mg PO QAM #30 tablet 10/03/16 [Rx] Temazepam [Restoril] 15 mg PO HS #30 capsule 10/03/16 [Rx] Allergies/Adverse Reactions: Allergies Sulfa (Sulfonamide Antibiotics) Allergy (Unknown, Verified 09/18/16 11:28) See Comments UNKNOWN REACTION- LISTED ON PATIENT'S MAR FROM [facility] Date of admission: 09/28/16 11:32 Primary care physician: Liz Ferguson Consults: 09/27/16 17:04 Consult to Dining Room Maid [CONS] Routine Reason for SW Consult: [facility] resident of [facility] 09/27/16 17:18 Consult to Surgery [CONS] Routine Consulting Provider: [facility] Reason for Consult: SBO. ED physician at [place] spoke with Dr Mccormick Call Completed: Yes 09/27/16 19:17 Consult to Psychiatry [CONS] Routine Consulting Provider: Psychiatry Moore Reason for Consult: States that if he could grab the pillow and put it over his head, he would. Time Notified: 19:18 Call Completed: Yes Discharging clinician: Racheal Cui Anticipated date of discharge: 10/03/16 - Patient Status Disposition: Transfer SNF Condition: Fair Functional capacity at discharge: uses cane/walker Overall status at discharge: patient is back to baseline - Discharge Instructions Follow Up With: Liz Ferguson MD [Primary Care Provider] - - Diet and Activity Activity: as per physical therapy Diet: other (soft diet for 1 week) Interval History: Mr. Pan is a 71 year old male with history of DM, HTN, COPD, hyperlipidemia, dementia, and schizophrenia. Pt was admitted here from 09/18-09/24 for SBO. Pt returns tonight for same complaint. He has a history of malrotation and underwent a expiratory celiotomy, the rotation of an internal hernia, and appendectomy in May 2016. He was in the hospital last week for signs of possible bowel obstruction which in fact was a partial small bowel obstruction. His been no documented signs of vomiting and a CT scan was performed which shows small bowel dilation of approximately 4.2 cm with some air-fluid levels but no masses. The patient has had flatus and has bowel movements throughout this entire course. The patient actually has had bowel movements even during his admission for possible bowel obstruction last week. it is unsure whether or not he has a bowel movement but he has a history of MRDD. There has been no documented signs of hematemesis or rectal bleeding present. NG tube was placed with no NG tube output. General surgery was consulted and was given MiraLAX Gatorade through the NG tube to prove that he is not having any signs of obstruction and to evacuate the stool that is present within his colon . The patient was able to tolerate the MiraLAX was NG tube and had multiple bowel movements. Patient's NG tube was removed. He was started on diet and was advanced as tolerated. repeat AAS was consistent with ileus and persistent small bowel obstruction. he was started on reglan 10mg q6hr, he was later tolerating diet and has good bowel movements he is discharge in stable condition today, he denies any suicideal ideaton at this time. Hospital course: Mr. Pan is a 71 year old male Time spent discussing smoking cessation with patient: more than 10 minutes - Time Spent with Patient Total time spent providing and/or coordinating discharge services: Greater than 30 minutes - Constitutional Vitals: Temp Pulse Resp BP Pulse Ox 98.3 F 76 16 103/64 99 10/03/16 07:33 10/03/16 07:33 10/03/16 07:33 10/03/16 07:33 10/03/16 07:33 General appearance: Present: A&O X 2, no acute distress Exam: Neck Neck exam general surgery: Present: supple, trachea midline. Absent: lymphadenopathy - Respiratory Respiratory exam: Present: CTAB. Absent: accessory muscle use, rales, rhonchi, wheezes - Cardiovascular Cardiovascular exam: Present: RRR, +S1, +S2. Absent: diastolic murmur, gallop, rubs, systolic murmur - GI/Abdominal GI/Abdominal exam: Present: distended, normal bowel sounds, soft, no peritoneal signs. Absent: tenderness - Extremities Exam Extremities exam: Present: pedal edema, warm, radial pulses palpable and symetrical. Absent: calf tenderness, cyanotic
--- NOTE | 2016-10-03 09:21 | Physician Discharge Referral ---
ExtendedCare Referral Info Transfer To: F Provider in Charge: radha murillo Institutional Level of Care: Intermediate - MR - Diagnosis (1) Constipation Status: Acute (2) Partial small bowel obstruction Status: Acute (3) COPD (chronic obstructive pulmonary disease) Status: Chronic - Transfer Medications Home Medications: Allopurinol [Zyloprim] 200 mg PO QAM 04/19/16 [History] Clopidogrel [Plavix] 75 mg PO QAM 04/19/16 [History] Fluticasone Propionate Nasal [Flonase] 100 mcg NS HS 04/19/16 [History] Hydrocodone/Acetaminophen [[place] 5-325 Tablet] 1 tab PO BID 04/19/16 [History] Iron Polysaccharide Complex [Ferrex 150] 150 mg PO BID 04/19/16 [History] Lactulose 10 gm PO BID 04/19/16 [History] Levothyroxine [Synthroid] 25 mcg PO QAM 04/19/16 [History] Liraglutide [Victoza 2-Antoine] 1.8 mg SQ QAM 04/19/16 [History] Lisinopril [Zestril] 10 mg PO DAILY 04/19/16 [History] Metoprolol [Lopressor] 25 mg PO BID 04/19/16 [History] [place]-3/Dha/Epa/Fish Oil [Fish Oil 1,000 mg Softgel] 1 cap PO BID 04/19/16 [ History] Tamsulosin [Flomax] 0.4 mg PO HS 04/19/16 [History] Atorvastatin [Lipitor] 40 mg PO HS 04/20/16 [History] Finasteride [Proscar] 5 mg PO QAM 04/20/16 [History] Insulin ASPART [Novolog Flexpen] 3 - 12 unit SQ QID PRN 04/20/16 [History] Venlafaxine XR (24 HR) [Effexor Xr] 225 mg PO QAM 04/20/16 [History] Insulin Glargine,Hum.rec.anlog [Lantus Solostar] 50 unit SQ HS 07/17/16 [History ] Insulin Glargine,Hum.rec.anlog [Lantus Solostar] 50 unit SQ QAM 07/17/16 [ History] Acetaminophen [Tylenol] 500 mg PO BID 09/18/16 [History] Amantadine [Symmetrel] 100 mg PO BID 09/18/16 [History] Benztropine [Cogentin] 1 mg PO QAM 09/18/16 [History] Carbidopa/Levodopa [Carbidopa-Levodopa 25-250 Tab] 1 tab PO TID 09/18/16 [ History] Cetirizine HCl [All Day Allergy] 10 mg PO DAILY 09/18/16 [History] Furosemide [Lasix] 40 mg PO DAILY 09/18/16 [History] Potassium Chloride [Klor-Con Sprinkle] 10 meq PO DAILY 09/18/16 [History] Temazepam [Restoril] 15 mg PO HS 09/18/16 [History] Ziprasidone HCl [Geodon] 60 mg PO BID 09/18/16 [History] ClonazePAM [Klonopin] 0.5 mg PO QAM #30 tablet 09/24/16 [Rx] Omeprazole 20 mg PO DAILY #30 tablet. 09/24/16 [Rx] Mirtazapine 7.5 mg PO HS 09/27/16 [History] Allergies/Adverse Reactions: Allergies Sulfa (Sulfonamide Antibiotics) Allergy (Unknown, Verified 09/18/16 11:28) See Comments UNKNOWN REACTION- LISTED ON PATIENT'S MAR FROM ECF - Respiratory Orders Smoking Cessation: Smoking cessation has been advised. For more information, call the [place] Tobacco Quit Line at 6-985-SSXPNOW. - Advance Directives Code Status: Full Code - Mobility Orders Ambulate - Rehabiliation Orders Rehab Potential: Fair Rehab Orders: Evaluation for Physical Therapy, Evaluation for Occupational Therapy - Diet Orders Mechanical Soft CERTIFICATION: I certify that the transfer of the above named patient to an Extended Care Facility is necessary for the continuing treatment of the diagnosis listed. The above information is true and accurate reflection of patient's current condition. Confidential - Redisclosure prohibited without a patient's written consent.
== END 2016-10-03 10:46 | DRG 389 ==
LOC: 3ANU
PROVIDERS: ADMIT Internal Medicine; ATTEND Internal Medicine

== ENCOUNTER 2018-01-14 19:58 | Inpatient (IN) ==
--- NOTE | 2018-01-14 23:46 | Internal Med History&Physical ---
Date of Encounter: 01/15/18 Time of Encounter: 23:45 Internal Medicine - H&P: HPI Chief complaint: AMS, urinary retention Admitted From: Home Plans for Post Hospital Care: Home History of present illness: Mr. Pan is a 72 year old male with a past medical history of diabetes type 2, hypertension, hypothyroidism, BPH, and dementia who presented from [facility] to the ED for altered mental status, fever, and urinary retention. Patient states that he is been having trouble voiding for the past week and has noticed dysuria for 2-3 days. He states that he fell 3-4 days ago. Fever began today and was noted to be at 100.9 at the nursing facility and complaining of abdominal pain. In the ED, patient was febrile to 102.9 and tachycardic. Castro was placed with the 800 mLs of urine return. While in the ED , another 1500ml of urine output recorded. Patient's labs showed hyponatremia of 131, elevated creatinine at 1.76 from baseline of 1.24, lactic acid of 4.0, and hemoglobin 10.9 stable. Patient was given 3L of fluid and Levaquin and was transferred from [place] to [facility] for admission to the floor for severe sepsis secondary to UTI. Upon arrive to [facility], patient is A&O x3. Repeat lactic acid of 0.9. He denies abdominal pain, chest pain, coughing, or syncope. Past Med Surg Social Fam HX - Past Medical History Medical history: arthritis, COPD, coronary artery disease, dementia, diabetes, GERD, hyperlipidemia, hypertension, renal disease, other Additional medical history: PARKINSON'S Psychiatric history: schizophrenia - Past Surgical History Surgical History: appendectomy Additional surgical history: celiotomy - Social History Smoking Status: Former smoker Smokeless Tobacco Status: No Alcohol use: none Drug use: none Internal Medicine - H&P: Meds Clopidogrel [Plavix] 75 mg PO QAM 04/19/16 [History] Fluticasone Propionate Nasal [Flonase] 100 mcg NS BID 04/19/16 [History] Lactulose 30 ml PO TID 04/19/16 [History] Levothyroxine [Synthroid] 25 mcg PO QAM 04/19/16 [History] Lisinopril [Zestril] 10 mg PO DAILY 04/19/16 [History] Metoprolol [Lopressor] 25 mg PO BID 04/19/16 [History] Tamsulosin [Flomax] 0.4 mg PO DAILY 04/19/16 [History] Atorvastatin [Lipitor] 40 mg PO HS 04/20/16 [History] Finasteride [Proscar] 5 mg PO QAM 04/20/16 [History] Insulin ASPART [Novolog Flexpen] 2 - 10 unit SQ QID PRN 04/20/16 [History] Insulin Glargine,Hum.rec.anlog [Lantus Solostar] 55 unit SQ BID 07/17/16 [ History] Furosemide [Lasix] 40 mg PO DAILY 09/18/16 [History] Potassium Chloride [Klor-Con Sprinkle] 10 meq PO DAILY 09/18/16 [History] Omeprazole 20 mg PO DAILY #30 tablet. 09/24/16 [Rx] Acetaminophen [Tylenol Arthritis] 2 tab PO BID 06/01/17 [History] Carbidopa/Levodopa [Carbidopa-Levodopa 25-100 Tab] 1 tab PO TID 06/01/17 [ History] Divalproex Sodium [Depakote] 500 mg PO TID 06/01/17 [History] Gabapentin [Neurontin] 100 mg PO TID 06/01/17 [History] Metformin HCl [Glucophage] 1,000 mg PO BID 06/01/17 [History] Quetiapine Fumarate [Seroquel] 75 mg PO BID 06/01/17 [History] Quetiapine Fumarate [Seroquel] 300 mg PO HS 06/01/17 [History] Sitagliptin Phosphate [Januvia] 50 mg PO QAM 06/01/17 [History] Loratadine [Allergy Relief] 10 mg PO DAILY 07/17/17 [History] Oxybutynin [Ditropan] 5 mg PO BID 10/25/17 [History] Docusate [Colace] 100 mg PO DAILY 10/31/17 [History] Capsaicin [Zostrix] DAILY 01/15/18 [History] Ketoconazole 2% CRM [Nizoral Cream] 2 % TP BID PRN 01/15/18 [History] Ketoconazole Shampoo 2XW 01/15/18 [History] Lidocaine 4% CRM (LMX) 4 % TP QSHIFT 01/15/18 [History] Linagliptin [Tradjenta] 5 mg PO DAILY 01/15/18 [History] Nystatin/Triamcinolone CRM 0.5 % TP BID PRN 01/15/18 [History] Olopatadine HCl 1 drop BOTH EYES DAILY 01/15/18 [History] Preparation H Ointment 0.25 % PRN 01/15/18 [History] Senokot 1 tab PO DAILY 01/15/18 [History] risperiDONE [Risperdal] 2 mg PO BID 01/15/18 [History] 3 Allergy/AdvReac Type Severity Reaction Status Date / Time Sulfa (Sulfonamide Allergy Unknown See Verified 10/31/17 00:48 Antibiotics) Comments All Systems PM: A 10-system review of systems was performed and is negative for pertinent findings except as documented above in the HPI. - Other Additional findings: Constitutional: Alert, in no acute distress, A&O x3, unsure of why he is in the hospital Head: Normocephalic, atraumatic Heart: Normal, regular rate and rhythm, no murmurs Lungs: Clear to auscultation, no wheezes, rales, or rhonchi Abdomen: castro present with clear/yellow urine output, no suprapubic tenderness , Soft, nondistended, nontender, bowel sounds present and normal, no guarding or rigidity. Extremities: + 1 pitting edema , No clubbing, radial pulse +2/4, capillary refill <2sec. Skin: Skin warm and dry, no lesions, no rashes, no jaundice Neurologic: strength 5/5 in all extremitites Psych: Cooperative with exam, good eye contact, speech clear, Internal Med - H&P Results - Labs CBC & Chem 7: 01/15/18 00:31 01/15/18 00:31 - Assessment and plan (1) Severe sepsis Current Visit: Yes Status: Acute Assessment and plan: Severe sepsis secondary to UTI. Elevated lactate upon presentation with tachycardia and fever. Labs show SIENNA. Blood pressure stable. Plan: - continue NS 125ml/hr - Antibiotics: Ceftriaxone - BC obtained at [place] (2) Urinary retention Current Visit: Yes Status: Acute Assessment and plan: Most likely 2/2 to UTI vs. post-renal obstruction from BPH. Plan: - urine osmo, Na, and creatinine - continue castro cath - renal US pending (3) UTI (urinary tract infection) Current Visit: Yes Status: Acute Assessment and plan: UA showed + nitrates, + leuk esterase, + blood. Begin Ceftriaxone. Qualifiers: Urinary tract infection type: acute cystitis Hematuria presence: with hematuria Qualified Code(s): N30.01 - Acute cystitis with hematuria (4) SIENNA (acute kidney injury) Current Visit: Yes Status: Acute Assessment and plan: Chronic renal disease most likely 2/2 to DM and HTN. Baseline creatinine around 1.2. Acute elevation in Creatinine. Will continue fluids and recheck. Avoid nephrotoxic medications. (5) Anemia Current Visit: Yes Status: Acute Assessment and plan: chronic anemia most likely 2/2 to CKD. Stable. Continue to monitor. Qualifiers: Anemia type: due to chronic kidney disease Chronic kidney disease stage: unspecified stage Qualified Code(s): N18.9 - Chronic kidney disease, unspecified; D63.1 - Anemia in chronic kidney disease (6) DVT prophylaxis Current Visit: No Status: Acute Assessment and plan: Heparin SQ (7) Diabetes mellitus type 2 in obese Current Visit: Yes Status: Acute Assessment and plan: Plan: - medium sliding scale insulin - Diet: Diabetic diet - Time Spent With Patient Total time spent is greater than 50% in coordination of care (as documented) at patient's floor/unit and/or counseling patient:
--- NOTE | 2018-01-15 00:02 | Event Note ---
Date of Encounter: 01/15/18 Time of Encounter: 00:01 Patient was seen and examined. I agree with the H&P as written by the Resident Physician. Briefly, patient is 72 yo male with history of DM, hypothyroidism, HTN, BPH, dementia, CAD, HLD, parkinson's who was transferred from [place] with severe sepsis/UTI. Patient presented there with fever, urinary retention and mild confusion. He was sent there from nursing facility as his temp was 100.9. He had lower abdominal pain. A castro was placed there and drained 800cc initially and then 1.5 L. At [place], temp was 102.5, tachycardic and hypertensive. O2 sats in upper 90s on room air. labs showed WBC 8.7, lactic acid 4.0, hemoglobin at baseline, Na 131, creatinine 1.75 with previous creatinine of 1.24 in October/2017. UA + nitrites and large leuk esterase. Given cipro, IV fluids, tylenol. Upon arrival here, he is afebrile and HR is 90, BP 119/68, 96% on RA. A/Ox2, NAD RRR. S1, S2, No m/r/g CTAB Abdomen soft, obese, NT, ND, +BS No edema, 2+ DP Nonfocal Admit to hospitalist for UTI/sever sepsis Repeat labs including lactic acid Start ceftriaxone f/u on urine cultures Maintenance IV fluids Hold nephrotoxins Check renal US Keep castro catheter for now ISS Resume home meds DVT ppx
[2018-01-15 00:44] LABS: Basophils % 0.3 %; Eosinophils # 0.1 K/mcL (0.0-0.6); Eosinophils % 0.6 %; Hematocrit 28.2 % (37.5-50.1); Hemoglobin 9.5 g/dL (12.9-16.9); Immature Granulocytes % 1.7 % (0-4); Lymphocytes % 11.9 %; Mean Corpuscular HGB Conc 33.7 g/dL (31.6-35.5); Mean Corpuscular Hemoglobin 31.4 pg (28.0-33.3); Mean Corpuscular Volume 93.1 fL (83.0-100.0); Mean Platelet Volume 10.2 fL (9.4-12.4); Monocytes # 1.1 K/mcL (0.0-1.3); Monocytes % 12.6 %; Neutrophils # 6.3 K/mcL (1.6-8.9); Nucleated Red Blood Cells 0.2 /100 WBC (0); Platelet Count 175 K/mcL (140-400); Red Blood Count 3.03 M/mcL (4.19-5.50); Red Cell Distribution Width 12.9 % (11.5-14.5); Segmented Neutrophils % 72.9 %
[2018-01-15 00:57] LABS: INR 1.3; Prothrombin Time 13.6 Seconds (9.4-12.1)
[2018-01-15 01:03] LABS: Calcium 8.2 mg/dL (8.6-10.3); Magnesium 1.6 mg/dL (1.6-2.6); Potassium 4.1 mEq/L (3.5-5.1)
[2018-01-15] MEDS ORDERED: Magnesium Oxide 400 MG TABLET PO ONE (01:24)
[2018-01-15] MEDS ORDERED: Naloxone 0.4 MG/ML INJ IVP PRN (01:34)
[2018-01-15] MEDS ORDERED: Dextrose Gel 15 GM/37.5 ML TUBE PO PRN ×2 (01:42)
[2018-01-15] MEDS ORDERED: D5% in Water 1,000 ML IVC PRN (01:42)
[2018-01-15] MEDS ORDERED: *HR* Dextrose 50 % in Water (Syg) 50 ML SYRINGE IVP PRN (01:42)
[2018-01-15] MEDS: 0.9 % Sodium Chloride 1,000 ML IVC SCH ×3 (02:30→22:02)
[2018-01-15] MEDS: Acetaminophen 325 MG TABLET PO PRN ×2 (04:07→17:04)
[2018-01-15 04:57] LABS: Sodium, Urine 45.1 mEq/L
[2018-01-15] MEDS: *HR* Heparin 5,000 UNIT/ML VIAL SQ SCH ×2 (05:07→17:04)
[2018-01-15 06:42] LABS: Basophils % 0.4 %; Eosinophils # 0.1 K/mcL (0.0-0.6); Eosinophils % 1.5 %; Hemoglobin 9.4 g/dL (12.9-16.9); Immature Granulocytes % 1.6 % (0-4); Lymphocytes # 1.1 K/mcL (0.6-4.6); Lymphocytes % 14.1 %; Mean Corpuscular HGB Conc 33.6 g/dL (31.6-35.5); Mean Corpuscular Hemoglobin 30.9 pg (28.0-33.3); Mean Corpuscular Volume 92.1 fL (83.0-100.0); Mean Platelet Volume 10.3 fL (9.4-12.4); Monocytes # 1.1 K/mcL (0.0-1.3); Monocytes % 14.1 %; Neutrophils # 5.1 K/mcL (1.6-8.9); Platelet Count 164 K/mcL (140-400); Red Blood Count 3.04 M/mcL (4.19-5.50); Red Cell Distribution Width 13.2 % (11.5-14.5); Segmented Neutrophils % 68.3 %
[2018-01-15 07:07] LABS: Calcium 8.2 mg/dL (8.6-10.3); Magnesium 1.7 mg/dL (1.6-2.6); Phosphorous 4.1 mg/dL (2.7-4.5); Potassium 3.9 mEq/L (3.5-5.1)
[2018-01-15] MEDS: Insulin LISPRO 300 UNITS/3 ML VIAL SQ SCH ×3 (09:39→16:39)
[2018-01-15] MEDS: Gabapentin 100 MG CAPSULE PO SCH ×3 (09:47→22:00)
[2018-01-15] MEDS: Levothyroxine 25 MCG TABLET PO SCH (09:47)
[2018-01-15] MEDS: risperiDONE 1 MG TABLET PO SCH ×2 (09:48→22:01)
[2018-01-15] MEDS: Carbidopa/Levodopa 25/100 TABLET PO SCH ×3 (09:48→22:01)
[2018-01-15] MEDS: Finasteride 5 MG TABLET PO SCH (09:48)
[2018-01-15] MEDS: Sennosides/Docusate Sodium TABLET PO SCH (09:48)
[2018-01-15] MEDS: Loratadine 10 MG TABLET PO SCH (09:48)
[2018-01-15] MEDS: Fluticasone Propionate Nasal 50 MCG/SPRAY BOTTLE NS SCH ×2 (09:50→22:02)
[2018-01-15] MEDS: cefTRIAXone 1,000 MG in Water for inj. (sterile) 20 ML 10 ML IVP SCH (09:50)
[2018-01-15] MEDS: OLOPATADINE HCL BOTH EYES SCH (09:50)
[2018-01-15] MEDS: Divalproex (12 HR) 250 MG TABLET PO SCH ×3 (10:05→22:01)
--- NOTE | 2018-01-15 18:06 | Event Note ---
Date of Encounter: 01/15/18 Time of Encounter: 11:00 Patient was seen by nocturnalist earlier this morning and also by myself Patient with urosepsis on IV fluids and IV ceftriaxone Blood and urine cultures pending
[2018-01-16] MEDS: 0.9 % Sodium Chloride 1,000 ML IVC SCH ×3 (04:50→23:19)
[2018-01-16] MEDS: *HR* Heparin 5,000 UNIT/ML VIAL SQ SCH ×2 (05:22→17:25)
[2018-01-16] MEDS: Fluticasone Propionate Nasal 50 MCG/SPRAY BOTTLE NS SCH ×2 (08:31→20:16)
[2018-01-16] MEDS: Insulin LISPRO 300 UNITS/3 ML VIAL SQ SCH ×3 (08:31→17:24)
[2018-01-16] MEDS: Loratadine 10 MG TABLET PO SCH (08:31)
[2018-01-16] MEDS: Gabapentin 100 MG CAPSULE PO SCH ×3 (08:32→20:11)
[2018-01-16] MEDS: Carbidopa/Levodopa 25/100 TABLET PO SCH ×3 (08:32→20:11)
[2018-01-16] MEDS: Finasteride 5 MG TABLET PO SCH (08:32)
[2018-01-16] MEDS: Sennosides/Docusate Sodium TABLET PO SCH (08:33)
[2018-01-16] MEDS: Levothyroxine 25 MCG TABLET PO SCH (08:33)
[2018-01-16] MEDS: cefTRIAXone 1,000 MG in Water for inj. (sterile) 20 ML 10 ML IVP SCH (08:33)
[2018-01-16] MEDS: OLOPATADINE HCL BOTH EYES SCH (08:34)
[2018-01-16] MEDS: risperiDONE 1 MG TABLET PO SCH ×2 (08:37→20:11)
[2018-01-16] MEDS: Divalproex (12 HR) 250 MG TABLET PO SCH ×3 (08:38→20:12)
[2018-01-16 09:47] LABS: Basophils % 0.3 %; Eosinophils # 0.1 K/mcL (0.0-0.6); Eosinophils % 1.6 %; Hematocrit 27.4 % (37.5-50.1); Hemoglobin 9.1 g/dL (12.9-16.9); Immature Granulocytes % 1.6 % (0-4); Lymphocytes # 0.9 K/mcL (0.6-4.6); Lymphocytes % 12.2 %; Mean Corpuscular HGB Conc 33.2 g/dL (31.6-35.5); Mean Corpuscular Hemoglobin 30.8 pg (28.0-33.3); Mean Corpuscular Volume 92.9 fL (83.0-100.0); Mean Platelet Volume 10.3 fL (9.4-12.4); Monocytes # 0.8 K/mcL (0.0-1.3); Monocytes % 11.1 %; Neutrophils # 5.4 K/mcL (1.6-8.9); Platelet Count 168 K/mcL (140-400); Red Blood Count 2.95 M/mcL (4.19-5.50); Red Cell Distribution Width 12.9 % (11.5-14.5); Segmented Neutrophils % 73.2 %
[2018-01-16 10:09] LABS: BUN/Creatinine Ratio 11 (6-26); Blood Urea Nitrogen 14 mg/dL (8-23); Calcium 8.5 mg/dL (8.6-10.3); Carbon Dioxide 23 mEq/L (23-29); Chloride 101 mEq/L (98-107); Glucose 246 mg/dL (70-105); Osmolality,Calculated 281 (280-300); Potassium 4.1 mEq/L (3.5-5.1); Sodium 131 mEq/L (136-145); eGFR For African Americans > 60 (> 60); eGFR For Non-African Americans 56 (> 60)
--- NOTE | 2018-01-16 17:06 | Internal Med Progress Note ---
Date of Encounter: 01/16/18 Time of Encounter: 11:00 - Assessment and plan (1) UTI (urinary tract infection) Current Visit: Yes Status: Acute Assessment and plan: Urine cultures showing gram-negative rods Continue day 2 of IV ceftriaxone Qualifiers: Urinary tract infection type: acute cystitis Hematuria presence: with hematuria Qualified Code(s): N30.01 - Acute cystitis with hematuria (2) Severe sepsis Current Visit: Yes Status: Acute Assessment and plan: Resolved;secondary to UTI. (3) Urinary retention Current Visit: Yes Status: Acute Assessment and plan: Most likely 2/2 to UTI vs. post-renal obstruction from BPH. Continue castro cath (4) SIENNA (acute kidney injury) Current Visit: Yes Status: Resolved Assessment and plan: Resolved; secondary to the above (5) Anemia Current Visit: Yes Status: Acute Assessment and plan: chronic anemia most likely 2/2 to CKD. Stable. Continue to monitor. Qualifiers: Anemia type: due to chronic kidney disease Chronic kidney disease stage: unspecified stage Qualified Code(s): N18.9 - Chronic kidney disease, unspecified; D63.1 - Anemia in chronic kidney disease (6) Diabetes mellitus type 2 in obese Current Visit: Yes Status: Acute Assessment and plan: Sliding-scale insulin (7) DVT prophylaxis Current Visit: No Status: Acute Assessment and plan: Heparin SQ - Time Spent With Patient Total time spent is greater than 50% in coordination of care (as documented) at patient's floor/unit and/or counseling patient: - Subjective Interval history: Patient this morning reports a feeling better since starting IV antibiotics and fluid resuscitation for urosepsis - Constitutional Vitals: Temp Pulse Resp BP Pulse Ox 98.1 F 84 16 148/78 97 01/16/18 15:28 01/16/18 15:28 01/16/18 15:28 01/16/18 15:28 01/16/18 15:28 General appearance: Present: no acute distress - Respiratory Respiratory exam: Present: CTAB. Absent: accessory muscle use, rales, rhonchi, wheezes - Cardiovascular Cardiovascular exam: Present: RRR, +S1, +S2. Absent: diastolic murmur, gallop, rubs, systolic murmur Internal Medicine: Result - Labs CBC & Chem 7: 01/16/18 09:28 01/16/18 09:28 Labs: Short CBC 01/16/18 Range/Units 09:28 WBC 7.4 (4.3-11.1) K/mcL Hgb 9.1 L (12.9-16.9) g/dL Hct 27.4 L (37.5-50.1) % Plt Count 168 (140-400) K/mcL Neutrophils # 5.4 (1.6-8.9) K/mcL BMP 01/16/18 09:28 Sodium 131 L Potassium 4.1 Chloride 101 Carbon Dioxide 23 BUN 14 Creatinine 1.26 Glucose 246 H Calcium 8.5 L - ABG Interpretation ABG results: PT/INR, D-dimer PT 13.6 Seconds (9.4-12.1) H 01/15/18 00:31 Consult Discharge Plan - Plan Referrals: Jimmie Choudhary MD [Primary Care Provider] -
[2018-01-16] MEDS: Acetaminophen 325 MG TABLET PO PRN (23:13)
[2018-01-17 05:26] LABS: Basophils # 0.1 K/mcL (0.0-0.2); Basophils % 0.8 %; Eosinophils # 0.2 K/mcL (0.0-0.6); Eosinophils % 3.3 %; Hematocrit 26.5 % (37.5-50.1); Immature Granulocytes % 1.4 % (0-4); Lymphocytes # 1.3 K/mcL (0.6-4.6); Lymphocytes % 20.5 %; Mean Corpuscular Hemoglobin 30.8 pg (28.0-33.3); Mean Corpuscular Volume 90.8 fL (83.0-100.0); Mean Platelet Volume 10.3 fL (9.4-12.4); Monocytes # 0.8 K/mcL (0.0-1.3); Monocytes % 11.8 %; Platelet Count 184 K/mcL (140-400); Red Blood Count 2.92 M/mcL (4.19-5.50); Red Cell Distribution Width 12.9 % (11.5-14.5); Segmented Neutrophils % 62.2 %
[2018-01-17] MEDS: *HR* Heparin 5,000 UNIT/ML VIAL SQ SCH ×2 (05:48→17:55)
[2018-01-17 05:51] LABS: BUN/Creatinine Ratio 11 (6-26); Blood Urea Nitrogen 12 mg/dL (8-23); Calcium 9.1 mg/dL (8.6-10.3); Carbon Dioxide 24 mEq/L (23-29); Chloride 103 mEq/L (98-107); Glucose 175 mg/dL (70-105); Osmolality,Calculated 284 (280-300); Potassium 3.9 mEq/L (3.5-5.1); Sodium 135 mEq/L (136-145); eGFR For African Americans > 60 (> 60); eGFR For Non-African Americans > 60 (> 60)
[2018-01-17] MEDS: cefTRIAXone 1,000 MG in Water for inj. (sterile) 20 ML 10 ML IVP SCH (08:37)
[2018-01-17] MEDS: Insulin LISPRO 300 UNITS/3 ML VIAL SQ SCH ×4 (08:38→21:13)
[2018-01-17] MEDS: Divalproex (12 HR) 250 MG TABLET PO SCH ×3 (08:38→21:18)
[2018-01-17] MEDS: Sennosides/Docusate Sodium TABLET PO SCH (08:38)
[2018-01-17] MEDS: Fluticasone Propionate Nasal 50 MCG/SPRAY BOTTLE NS SCH ×2 (08:38→21:19)
[2018-01-17] MEDS: Carbidopa/Levodopa 25/100 TABLET PO SCH ×3 (08:39→21:18)
[2018-01-17] MEDS: risperiDONE 1 MG TABLET PO SCH ×2 (08:39→17:56)
[2018-01-17] MEDS: Finasteride 5 MG TABLET PO SCH (08:39)
[2018-01-17] MEDS: Levothyroxine 25 MCG TABLET PO SCH (08:39)
[2018-01-17] MEDS: Gabapentin 100 MG CAPSULE PO SCH ×3 (08:39→21:18)
[2018-01-17] MEDS: Loratadine 10 MG TABLET PO SCH (08:39)
[2018-01-17] MEDS: OLOPATADINE HCL BOTH EYES SCH (08:40)
[2018-01-17] MEDS: Lactulose Oral Soln 20 GM/30 ML UDC PO SCH ×2 (15:29→21:19)
[2018-01-17] MEDS: 0.9 % Sodium Chloride 1,000 ML IVC SCH (15:30)
[2018-01-17] MEDS: Cefepime HCl 2,000 MG in Water for inj. (sterile) 20 ML 20 ML IVP SCH (17:55)
--- NOTE | 2018-01-17 18:37 | Internal Med Progress Note ---
Date of Encounter: 01/17/18 Time of Encounter: 11:00 - Assessment and plan (1) UTI (urinary tract infection) Current Visit: Yes Status: Acute Assessment and plan: Urine cultures grew Pseudomonas IV ceftriaxone changed to IV cefepime due to sensitivities Qualifiers: Urinary tract infection type: acute cystitis Hematuria presence: with hematuria Qualified Code(s): N30.01 - Acute cystitis with hematuria (2) Severe sepsis Current Visit: Yes Status: Acute Assessment and plan: Resolved;secondary to UTI. (3) Urinary retention Current Visit: Yes Status: Acute Assessment and plan: Most likely 2/2 to UTI vs. post-renal obstruction from BPH. Continue castro cath (4) Constipation Current Visit: Yes Status: Acute Assessment and plan: Biggest complaint is constipation and was started on lactulose after no relief with MiraLAX Qualifiers: Qualified Code(s): K59.00 - Constipation, unspecified (5) SIENNA (acute kidney injury) Current Visit: Yes Status: Resolved Assessment and plan: Resolved; secondary to the above (6) Anemia Current Visit: Yes Status: Acute Assessment and plan: chronic anemia most likely 2/2 to CKD. Stable. Continue to monitor. Qualifiers: Anemia type: due to chronic kidney disease Chronic kidney disease stage: unspecified stage Qualified Code(s): N18.9 - Chronic kidney disease, unspecified; D63.1 - Anemia in chronic kidney disease (7) Diabetes mellitus type 2 in obese Current Visit: Yes Status: Acute Assessment and plan: Sliding-scale insulin (8) DVT prophylaxis Current Visit: No Status: Acute Assessment and plan: Heparin SQ - Time Spent With Patient Total time spent is greater than 50% in coordination of care (as documented) at patient's floor/unit and/or counseling patient: - Subjective Interval history: Patient found to have sepsis secondary to UTI due to Pseudomonas. She improving clinically and sepsis has resolved. Biggest complaint is constipation and was started on lactulose after no relief with MiraLAX - Constitutional Vitals: Temp Pulse Resp BP Pulse Ox 98.6 F 91 16 169/79 95 01/17/18 14:56 01/17/18 14:56 01/17/18 14:56 01/17/18 14:56 01/17/18 14:56 General appearance: Present: no acute distress - Respiratory Respiratory exam: Present: CTAB. Absent: accessory muscle use, rales, rhonchi, wheezes - Cardiovascular Cardiovascular exam: Present: RRR, +S1, +S2. Absent: diastolic murmur, gallop, rubs, systolic murmur - GI/Abdominal GI/Abdominal exam: Present: distended, soft, no peritoneal signs. Absent: tenderness Internal Medicine: Result - Labs CBC & Chem 7: 01/17/18 04:32 01/17/18 04:32 Labs: Short CBC 01/17/18 Range/Units 04:32 WBC 6.4 (4.3-11.1) K/mcL Hgb 9.0 L (12.9-16.9) g/dL Hct 26.5 L (37.5-50.1) % Plt Count 184 (140-400) K/mcL Neutrophils # 4.0 (1.6-8.9) K/mcL BMP 01/17/18 04:32 Sodium 135 L Potassium 3.9 Chloride 103 Carbon Dioxide 24 BUN 12 Creatinine 1.06 Glucose 175 H Calcium 9.1 - ABG Interpretation ABG results: PT/INR, D-dimer PT 13.6 Seconds (9.4-12.1) H 01/15/18 00:31 Consult Discharge Plan - Plan Referrals: Jimmie Choudhary MD [Primary Care Provider] -
[2018-01-18] MEDS: 0.9 % Sodium Chloride 1,000 ML IVC SCH ×2 (03:55→17:16)
[2018-01-18] MEDS: Acetaminophen 325 MG TABLET PO PRN ×2 (05:29→21:05)
[2018-01-18] MEDS: *HR* Heparin 5,000 UNIT/ML VIAL SQ SCH ×2 (05:29→17:15)
[2018-01-18] MEDS: Cefepime HCl 2,000 MG in Water for inj. (sterile) 20 ML 20 ML IVP SCH ×2 (05:29→17:16)
[2018-01-18] MEDS: Lactulose Oral Soln 20 GM/30 ML UDC PO SCH ×2 (08:31→21:05)
[2018-01-18] MEDS: Fluticasone Propionate Nasal 50 MCG/SPRAY BOTTLE NS SCH ×2 (08:40→21:06)
[2018-01-18] MEDS: Levothyroxine 25 MCG TABLET PO SCH (08:40)
[2018-01-18] MEDS: risperiDONE 1 MG TABLET PO SCH ×2 (08:40→15:28)
[2018-01-18] MEDS: Divalproex (12 HR) 250 MG TABLET PO SCH ×3 (08:40→21:05)
[2018-01-18] MEDS: Finasteride 5 MG TABLET PO SCH (08:40)
[2018-01-18] MEDS: Carbidopa/Levodopa 25/100 TABLET PO SCH ×3 (08:41→21:05)
[2018-01-18] MEDS: Loratadine 10 MG TABLET PO SCH (08:41)
[2018-01-18] MEDS: Sennosides/Docusate Sodium TABLET PO SCH (08:41)
[2018-01-18] MEDS: Insulin LISPRO 300 UNITS/3 ML VIAL SQ SCH ×4 (08:41→20:50)
[2018-01-18] MEDS: Gabapentin 100 MG CAPSULE PO SCH ×3 (08:41→21:05)
--- NOTE | 2018-01-18 14:35 | Internal Med Progress Note ---
Date of Encounter: 01/18/18 Time of Encounter: 08:25 - Assessment and plan (1) Severe sepsis Current Visit: Yes Status: Acute Assessment and plan: Due to urinary tract infection with Pseudomonas. Sepsis is improved now. Leukocytosis resolved. Urine culture growing Pseudomonas. On IV antibiotics. He did have fever today. We will continue to monitor. If symptoms remain stable and patient is afebrile tomorrow, plan on discharge on oral antibiotics. (2) Urinary retention Current Visit: Yes Status: Acute Assessment and plan: Has Arrieta catheter in place. Will arrange for outpatient follow-up with urology after discharge (3) UTI (urinary tract infection) Current Visit: Yes Status: Acute Assessment and plan: With pseudomonas. Continue current antibiotics. Qualifiers: Urinary tract infection type: acute cystitis Hematuria presence: with hematuria Qualified Code(s): N30.01 - Acute cystitis with hematuria (4) SIENNA (acute kidney injury) Current Visit: Yes Status: Resolved (5) Anemia Current Visit: Yes Status: Chronic Assessment and plan: Stable hemoglobin levels. We will continue to monitor Qualifiers: Anemia type: due to chronic kidney disease Chronic kidney disease stage: unspecified stage Qualified Code(s): N18.9 - Chronic kidney disease, unspecified; D63.1 - Anemia in chronic kidney disease (6) Diabetes mellitus type 2 in obese Current Visit: Yes Status: Chronic Assessment and plan: Better controlled. Continue current insulin regimen (7) Constipation Current Visit: Yes Status: Resolved Assessment and plan: Patient had a bowel movement yesterday. Continue Colace. Qualifiers: Qualified Code(s): K59.00 - Constipation, unspecified (8) DVT prophylaxis Current Visit: Yes Status: Acute Assessment and plan: On subcutaneous heparin - Time Spent With Patient Total time spent is greater than 50% in coordination of care (as documented) at patient's floor/unit and/or counseling patient: - Subjective Interval history: Patient is lying in bed. Comfortable. Denies any new complaints at this time. He did have fever earlier this morning with a MAXIMUM TEMPERATURE of 101. This has improved now. He denies any dysuria. No palpitations. Tolerating diet well. - Constitutional Vitals: Temp Pulse Resp BP Pulse Ox 98.4 F 78 15 138/71 95 01/18/18 11:53 01/18/18 11:53 01/18/18 11:53 01/18/18 11:53 01/18/18 11:53 General appearance: Present: cooperative, A&O X 3, no acute distress, answers questions appropriately - Respiratory Respiratory exam: Present: CTAB. Absent: accessory muscle use, rales, rhonchi, wheezes - Cardiovascular Cardiovascular exam: Present: RRR, +S1, +S2. Absent: diastolic murmur, gallop, rubs, systolic murmur - GI/Abdominal GI/Abdominal exam: Present: normal bowel sounds, soft, no peritoneal signs. Absent: distended, tenderness - Extremities Exam Extremities exam: Present: warm, radial pulses palpable and symmetrical. Absent : calf tenderness, cyanotic, pedal edema - Neurological Exam Neurological exam: Present: alert, oriented X3, no focal deficits. Absent: facial droop, speech deficit - Skin Skin exam: Present: dry, intact Internal Medicine: Result - Labs CBC & Chem 7: 01/17/18 04:32 01/17/18 04:32 - ABG Interpretation ABG results: PT/INR, D-dimer PT 13.6 Seconds (9.4-12.1) H 01/15/18 00:31 Consult Discharge Plan - Plan Referrals: Jimmie Choudhary MD [Primary Care Provider] -
[2018-01-19 05:44] LABS: Basophils % 0.5 %; Eosinophils # 0.2 K/mcL (0.0-0.6); Hematocrit 26.9 % (37.5-50.1); Hemoglobin 9.1 g/dL (12.9-16.9); Immature Granulocytes % 4.2 % (0-4); Lymphocytes % 15.3 %; Mean Corpuscular HGB Conc 33.8 g/dL (31.6-35.5); Mean Corpuscular Hemoglobin 31.2 pg (28.0-33.3); Mean Corpuscular Volume 92.1 fL (83.0-100.0); Mean Platelet Volume 10.2 fL (9.4-12.4); Monocytes # 0.8 K/mcL (0.0-1.3); Neutrophils # 4.3 K/mcL (1.6-8.9); Platelet Count 203 K/mcL (140-400); Red Blood Count 2.92 M/mcL (4.19-5.50); Red Cell Distribution Width 12.6 % (11.5-14.5)
[2018-01-19] MEDS: Cefepime HCl 2,000 MG in Water for inj. (sterile) 20 ML 20 ML IVP SCH (05:56)
[2018-01-19] MEDS: Acetaminophen 325 MG TABLET PO PRN (05:56)
[2018-01-19] MEDS: 0.9 % Sodium Chloride 1,000 ML IVC SCH (05:57)
[2018-01-19] MEDS: *HR* Heparin 5,000 UNIT/ML VIAL SQ SCH (05:57)
[2018-01-19 06:01] LABS: BUN/Creatinine Ratio 11 (6-26); Blood Urea Nitrogen 11 mg/dL (8-23); Calcium 8.7 mg/dL (8.6-10.3); Carbon Dioxide 24 mEq/L (23-29); Chloride 103 mEq/L (98-107); Glucose 162 mg/dL (70-105); Osmolality,Calculated 285 (280-300); Potassium 3.7 mEq/L (3.5-5.1); Sodium 136 mEq/L (136-145); eGFR For African Americans > 60 (> 60); eGFR For Non-African Americans > 60 (> 60)
[2018-01-19 08:01] VITALS: BP 147/74
[2018-01-19] MEDS: Lactulose Oral Soln 20 GM/30 ML UDC PO SCH (08:30)
[2018-01-19] MEDS: risperiDONE 1 MG TABLET PO SCH (08:30)
[2018-01-19] MEDS: Finasteride 5 MG TABLET PO SCH (08:31)
[2018-01-19] MEDS: Levothyroxine 25 MCG TABLET PO SCH (08:31)
[2018-01-19] MEDS: Divalproex (12 HR) 250 MG TABLET PO SCH (08:31)
[2018-01-19] MEDS: Gabapentin 100 MG CAPSULE PO SCH (08:31)
[2018-01-19] MEDS: Sennosides/Docusate Sodium TABLET PO SCH (08:31)
[2018-01-19] MEDS: Loratadine 10 MG TABLET PO SCH (08:31)
[2018-01-19] MEDS: Fluticasone Propionate Nasal 50 MCG/SPRAY BOTTLE NS SCH (08:32)
[2018-01-19] MEDS: Carbidopa/Levodopa 25/100 TABLET PO SCH (08:32)
[2018-01-19] MEDS: Insulin LISPRO 300 UNITS/3 ML VIAL SQ SCH (08:32)
--- NOTE | 2018-01-19 09:27 | Discharge Summary ---
- NOTES TO OUTPATIENT PROVIDER Notes to Outpatient Provider: Patient admitted with sepsis related to Pseudomonas urinary tract infection. Also developed acute renal failure. Was treated with IV antibiotics and IV fluids. Has improved clinically and is now stable to be discharged on oral antibiotics. Acute renal failure has resolved. He will be discharged home on ciprofloxacin based on sensitivity results. Patient did have urinary retention and has a Arrieta catheter in place. He will be discharged back to skilled rehabilitation with Arrieta catheter. He will follow up with urology as outpatient. Orders not resulted at time of discharge: Pending orders 01/15/18 18:12 Culture,Blood [BC] Stat Date of Encounter: 01/19/18 Time of Encounter: 09:25 - Discharge Diagnosis (1) Severe sepsis Priority: Primary Status: Acute (2) UTI (urinary tract infection) Priority: Secondary Status: Acute Qualifiers: Urinary tract infection type: acute cystitis Hematuria presence: with hematuria Qualified Code(s): N30.01 - Acute cystitis with hematuria (3) Urinary retention Priority: Secondary Status: Acute (4) SIENNA (acute kidney injury) Priority: Secondary Status: Resolved (5) Anemia Priority: Secondary Status: Chronic Qualifiers: Anemia type: due to chronic kidney disease Chronic kidney disease stage: unspecified stage Qualified Code(s): N18.9 - Chronic kidney disease, unspecified; D63.1 - Anemia in chronic kidney disease (6) Diabetes mellitus type 2 in obese Priority: Secondary Status: Chronic (7) Constipation Priority: Secondary Status: Resolved Qualifiers: Constipation type: slow transit constipation Qualified Code(s): K59.01 - Slow transit constipation (8) DVT prophylaxis Priority: Secondary Status: Acute (9) Hypertension associated with diabetes Priority: Secondary Status: Acute Hospital course: Mr. Pan is a 72 year old male with history of diabetes, hypertension, hypothyroidism, dementia, BPH who resides at [facility] was hospitalized here with altered mental status, fever and urinary retention related to sepsis and UTI. She was treated with IV antibiotics. He also had acute kidney injury. He received IV fluids. Urine culture was positive for Pseudomonas. Blood cultures have been negative. Patient's symptoms have now improved significantly. He is no longer febrile today. He is stable to be discharged back to skilled rehabilitation on oral antibiotics. He will be discharged on ciprofloxacin based on sensitivity results. Patient did have urinary retention and has a Arrieta catheter in place. He will be discharged back to skilled rehabilitation with Arrieta catheter. He will follow up with urology as outpatient. Discharge discussed with: patient, nurse, social work - Time Spent with Patient Total time spent providing and/or coordinating discharge services: Greater than 30 minutes (40 min) - Discharge Medications Prescriptions: Ciprofloxacin [Cipro] 500 mg PO BID #22 tablet Lactobacillus Acidophilus [Acidophilus] 1 each PO BID #24 capsule Home Medications: Acetaminophen [Arthritis Pain Relief] 1,300 mg PO BID PRN 01/15/18 [History] Acetaminophen [Tylenol] 650 mg PO Q4H PRN 01/15/18 [History] Atorvastatin [Lipitor] 40 mg PO HS 01/15/18 [History] Capsaicin [Arthritis Pain Relief] 1 appl TP DAILY 01/15/18 [History] Carbidopa/Levodopa 25/100 [Sinemet 25/100] 1 each PO TID 01/15/18 [History] Cetirizine HCl [All Day Allergy] 10 mg PO DAILY 01/15/18 [History] Clopidogrel [Plavix] 75 mg PO DAILY 01/15/18 [History] Divalproex (12 HR) [Depakote (12 HR)] 500 mg PO TID 01/15/18 [History] Docusate [Colace] 100 mg PO DAILY PRN 01/15/18 [History] Finasteride [Proscar] 5 mg PO DAILY 01/15/18 [History] Fluticasone Propionate Nasal [Flonase] 2 spr NS BID 01/15/18 [History] Furosemide [Lasix] 40 mg PO DAILY 01/15/18 [History] Gabapentin [Neurontin] 100 mg PO TID 01/15/18 [History] Insulin Glargine,Hum.rec.anlog [Basaglar Kwikpen U-100] 55 unit SQ BID 01/15/18 [History] Insulin LISPRO [HumaLOG] 2 - 10 units SQ TIDWM 01/15/18 [History] Insulin LISPRO [HumaLOG] 10 units SQ TIDWM 01/15/18 [History] Ketoconazole 2% CRM [Nizoral Cream] 1 appl TP BID 01/15/18 [History] Ketoconazole Shampoo [Nizoral Shampoo] 1 appl TP 2XW 01/15/18 [History] Lactulose [Enulose] 20 gm PO TID PRN 01/15/18 [History] Levothyroxine [Synthroid] 25 mcg PO 0630 01/15/18 [History] Lidocaine 4% CRM (LMX) [Lmx 4] 1 appl TP BID 01/15/18 [History] Linagliptin [Tradjenta] 5 mg PO DAILY 01/15/18 [History] Lisinopril [Zestril] 10 mg PO DAILY 01/15/18 [History] Metformin HCl [Glucophage] 1,000 mg PO BID 01/15/18 [History] Metoprolol [Lopressor] 12.5 mg PO BID 01/15/18 [History] Olopatadine HCl [Pataday] 1 drop BOTH EYES DAILY 01/15/18 [History] Omeprazole [PriLOSEC] 20 mg PO DAILY 01/15/18 [History] Oxybutynin [Ditropan] 5 mg PO BID 01/15/18 [History] Potassium Chloride [Klor-Con 10] 10 meq PO DAILY 01/15/18 [History] Preparation H Ointment 1 appl RC DAILY PRN 01/15/18 [History] Quetiapine Fumarate [Seroquel] 300 mg PO HS 01/15/18 [History] Sennosides/Docusate Sodium [Senna-S Tablet] 1 tab PO DAILY 01/15/18 [History] Tamsulosin [Flomax] 0.4 mg PO DAILY 01/15/18 [History] Triamcinolone Acet 0.1% CRM [Kenalog] 1 appl TP BID 01/15/18 [History] risperiDONE [Risperdal] 2 mg PO BID 01/15/18 [History] Ciprofloxacin [Cipro] 500 mg PO BID #22 tablet 01/19/18 [Rx] Lactobacillus Acidophilus [Acidophilus] 1 each PO BID #24 capsule 01/19/18 [Rx] Allergies/Adverse Reactions: 3 Allergy/AdvReac Type Severity Reaction Status Date / Time Sulfa (Sulfonamide Allergy Unknown See Verified 01/15/18 11:05 Antibiotics) Comments Date of admission: 01/14/18 23:46 Primary care physician: Jimmie Choudhary MD Consults: 01/18/18 08:55 PT [Consult to Physical Therapy] [CONS] Routine Comment: Evaluate, develop and implement POC Reason for Consult: Evaluate, develop and implement POC Does patient have active BEDREST order?: No Is patient medically & hemodynamically stable?: Yes 01/18/18 08:56 OT [Consult to Occupational Therapy] [CONS] Routine Comment: Evaluate, develop and implement POC Reason for Consult: Evaluate, develop and implement POC Does patient have active BEDREST order?: No Is patient medically & hemodynamically stable?: Yes Discharging clinician: Hayder Costa Anticipated date of discharge: 01/19/18 - Constitutional Vitals: Temp Pulse Resp BP Pulse Ox 98.7 F 80 15 147/74 94 01/19/18 08:00 01/19/18 08:00 01/19/18 08:00 01/19/18 08:00 01/19/18 08:00 General appearance: Present: cooperative, A&O X 3, no acute distress, answers questions appropriately - Respiratory Respiratory exam: Present: CTAB. Absent: accessory muscle use, rales, rhonchi, wheezes - Cardiovascular Cardiovascular exam: Present: RRR, +S1, +S2. Absent: diastolic murmur, gallop, rubs, systolic murmur - GI/Abdominal GI/Abdominal exam: Present: normal bowel sounds, soft, no peritoneal signs. Absent: distended, tenderness - Extremities Exam Extremities exam: Present: warm, radial pulses palpable and symmetrical. Absent : calf tenderness, cyanotic, pedal edema - Patient Status Disposition: Transfer SNF Condition: Good Functional capacity at discharge: independent ambulation Overall status at discharge: patient is progressing back to baseline - Discharge Instructions Instructions: Urinary Tract Infection in Men (DC), Sepsis (DC) Follow Up With: Jimmie Choudhary MD [Primary Care Provider] - (in 1-2 weeks. will see physician at [facility] Mitchell Pillai MD [Partnered Physician] - 02/08/18 7:45 am (in 1-2 weeks for urinary retention) - Diet and Activity Activity: as per physical therapy, increase activity as tolerated Diet: diabetic diet, low fat, low cholesterol, low salt diet
--- NOTE | 2018-01-19 09:35 | Physician Discharge Referral ---
ExtendedCare Referral Info Provider in Charge after Transfer: PCP Institutional Level of Care: Skilled - Diagnosis (1) UTI (urinary tract infection) Priority: Primary Status: Acute (2) Severe sepsis Priority: Secondary Status: Acute (3) Urinary retention Priority: Secondary Status: Acute (4) SIENNA (acute kidney injury) Priority: Secondary Status: Resolved (5) Anemia Priority: Secondary Status: Chronic (6) Diabetes mellitus type 2 in obese Priority: Secondary Status: Chronic (7) Constipation Priority: Secondary Status: Resolved (8) DVT prophylaxis Priority: Secondary Status: Acute (9) Hypertension associated with diabetes Priority: Secondary Status: Acute Prognosis: Fair Aware of Diagnosis: Patient Aware of Prognosis: Patient - Transfer Medications Prescriptions: Ciprofloxacin [Cipro] 500 mg PO BID #22 tablet Lactobacillus Acidophilus [Acidophilus] 1 each PO BID #24 capsule Home Medications: Acetaminophen [Arthritis Pain Relief] 1,300 mg PO BID PRN 01/15/18 [History] Acetaminophen [Tylenol] 650 mg PO Q4H PRN 01/15/18 [History] Atorvastatin [Lipitor] 40 mg PO HS 01/15/18 [History] Capsaicin [Arthritis Pain Relief] 1 appl TP DAILY 01/15/18 [History] Carbidopa/Levodopa 25/100 [Sinemet 25/100] 1 each PO TID 01/15/18 [History] Cetirizine HCl [All Day Allergy] 10 mg PO DAILY 01/15/18 [History] Clopidogrel [Plavix] 75 mg PO DAILY 01/15/18 [History] Divalproex (12 HR) [Depakote (12 HR)] 500 mg PO TID 01/15/18 [History] Docusate [Colace] 100 mg PO DAILY PRN 01/15/18 [History] Finasteride [Proscar] 5 mg PO DAILY 01/15/18 [History] Fluticasone Propionate Nasal [Flonase] 2 spr NS BID 01/15/18 [History] Furosemide [Lasix] 40 mg PO DAILY 01/15/18 [History] Gabapentin [Neurontin] 100 mg PO TID 01/15/18 [History] Insulin Glargine,Hum.rec.anlog [Basaglar Kwikpen U-100] 55 unit SQ BID 01/15/18 [History] Insulin LISPRO [HumaLOG] 2 - 10 units SQ TIDWM 01/15/18 [History] Insulin LISPRO [HumaLOG] 10 units SQ TIDWM 01/15/18 [History] Ketoconazole 2% CRM [Nizoral Cream] 1 appl TP BID 01/15/18 [History] Ketoconazole Shampoo [Nizoral Shampoo] 1 appl TP 2XW 01/15/18 [History] Lactulose [Enulose] 20 gm PO TID PRN 01/15/18 [History] Levothyroxine [Synthroid] 25 mcg PO 0630 01/15/18 [History] Lidocaine 4% CRM (LMX) [Lmx 4] 1 appl TP BID 01/15/18 [History] Linagliptin [Tradjenta] 5 mg PO DAILY 01/15/18 [History] Lisinopril [Zestril] 10 mg PO DAILY 01/15/18 [History] Metformin HCl [Glucophage] 1,000 mg PO BID 01/15/18 [History] Metoprolol [Lopressor] 12.5 mg PO BID 01/15/18 [History] Olopatadine HCl [Pataday] 1 drop BOTH EYES DAILY 01/15/18 [History] Omeprazole [PriLOSEC] 20 mg PO DAILY 01/15/18 [History] Oxybutynin [Ditropan] 5 mg PO BID 01/15/18 [History] Potassium Chloride [Klor-Con 10] 10 meq PO DAILY 01/15/18 [History] Preparation H Ointment 1 appl RC DAILY PRN 01/15/18 [History] Quetiapine Fumarate [Seroquel] 300 mg PO HS 01/15/18 [History] Sennosides/Docusate Sodium [Senna-S Tablet] 1 tab PO DAILY 01/15/18 [History] Tamsulosin [Flomax] 0.4 mg PO DAILY 01/15/18 [History] Triamcinolone Acet 0.1% CRM [Kenalog] 1 appl TP BID 01/15/18 [History] risperiDONE [Risperdal] 2 mg PO BID 01/15/18 [History] Ciprofloxacin [Cipro] 500 mg PO BID #22 tablet 01/19/18 [Rx] Lactobacillus Acidophilus [Acidophilus] 1 each PO BID #24 capsule 01/19/18 [Rx] Allergies/Adverse Reactions: 3 Allergy/AdvReac Type Severity Reaction Status Date / Time Sulfa (Sulfonamide Allergy Unknown See Verified 01/15/18 11:05 Antibiotics) Comments - Respiratory Orders Smoking Cessation: Smoking cessation has been advised. For more information, call the [place] Tobacco Quit Line at 5-824-ZGYH-NOW. - Ancillary Orders May consult with Dentist, District Fire Chief, Water Technician PRN - Advance Directives Code Status: Full Code - Mobility Orders Ambulate (per PT) - Rehabiliation Orders Rehab Potential: Fair Rehab Orders: Evaluation for Physical Therapy, Evaluation for Occupational Therapy - Treatments Skin tear care topically daily PRN per policy - Diet Orders No Concentrated Sweets (Diabetic), Cardiac CERTIFICATION: I certify that the transfer of the above named patient to an Extended Care Facility is necessary for the continuing treatment of the diagnosis listed. The above information is true and accurate reflection of patient's current condition. Confidential - Redisclosure prohibited without a patient's written consent.
[2018-01-19] MEDS ORDERED: Lactulose Oral Soln 20 GM/30 ML UDC PO PRN (09:54)
== END 2018-01-19 14:00 | DRG 872 ==
LOC: 3ANU → SUATTDRO 23:46
PROVIDERS: ADMIT Internal Medicine; ATTEND Internal Medicine